=== PATIENT | female | born 1950 | race Caucasian/White ===

== ENCOUNTER → 2016-10-17 | Outpatient (CLI) | payer MEDICARE ==
--- NOTE | 2016-10-17 12:51 | WWHP ---
DATE OF SERVICE: 10/17/2016 CHIEF COMPLAINT: The patient is here for her routine gynecologic exam. HPI: This is a 66-year-old G3, P2-0-1-2 with an LMP of 1994. The patient is without gynecologic complaints and denies any postmenopausal bleeding. The patient had a mammogram last month. This was probably benign, but they did recommend a follow-up right-sided mammogram in 6 months. She did see Dr. Malagon for breast exam within the last 2 weeks. PAST MEDICAL HISTORY: Hypothyroidism and chronic back problems. Also history of osteoporosis, and history of frequent UTIs. MEDICATIONS: 1. Trimethoprim 100 mg 1 p.o. after each active intercourse. 2. Ronan thyroid 90 mcg daily. 3. Vitamin D 1000 units daily. 4. Premarin vaginal cream 1 to 2 grams intravaginally twice weekly, 5. Calcium supplement daily. 6. Magnesium supplement daily. 7. Probiotic daily. Allergies to SULFA, MACRODANTIN, PREVACID and METHYLPREDNISOLONE. Past surgical history is unchanged from the 2015 H&P. 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 SOCIAL HISTORY: She denies tobacco and drug use and infrequently drinks alcohol. She has been since about 1969 and is sexually active. 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 Family history is unchanged from the 2015 H&P. REVIEW OF SYSTEMS: Weight has been stable. She denies respiratory, cardiac, or GI problems. She denies maltreatment or falling. : She denies any significant problems with incontinence but occasionally has urinary urgency where she needs to get to the bathroom right away. PHYSICAL EXAM: Blood pressure 144/84. Height 5 feet 4 inches. Weight 140 pounds. Temperature 97.1, pulse 87. This a well-developed, well-nourished white female who is alert and oriented x3 in no acute distress. HEENT is within normal limits. NECK: Supple without mass or thyromegaly. CHEST AND LUNGS: Clear to auscultation. HEART: Regular rate and rhythm. Breast exam was refused by the patient since she just had this done by Dr. Malagon. ABDOMEN: Soft, nontender, without palpable masses. PELVIC EXAM: External genitalia reveals mild to moderate atrophy. There is a small BB sized benign-appearing inclusion cyst in the right labia. This is smooth and mobile and measures approximately 3 to 4 mm. The rest of the external genitalia also appears benign. Cervix and vagina reveal mild atrophy without lesions. There is no evidence of prolapse. Bimanual exam: The uterus is midposition, nongravid size and nontender. There are no palpable adnexal masses or tenderness. Rectovaginal exam is negative for mass or tenderness and is negative for occult blood. EXTREMITIES: Nontender. IMPRESSION: 1. A 66-year-old menopausal female with normal gynecologic exam. 2. Mild blood pressure elevation. 3. History of recurrent urinary tract infection, improved with postcoital trimethoprim use. PLAN: 1. Pap smear was performed. 2. Self breast examination was discussed. 3. Right-sided mammogram will be due in 6 months, and a slip was given to patient for this. 4. She will continue Premarin vaginal cream as directed and trimethoprim as directed. 5. She will return in one year.
--- NOTE | 2016-10-31 22:12 | WWPLE ---
October 31, 2016 RE: Anna Turpin Dear Dr. Madden: I had the pleasure seeing your patient, Anna Turpin in the office on 10/17/2016. As you know she is a 66-year-old menopausal female who presented to me for her routine gynecologic exam. The patient declined her breasts exams as she just was examined by Dr. Malagon for follow-up on her breast. She also had bilateral mammogram done about a month ago and did recommend a right-sided mammogram in 6 months. She does have a benign small inclusion cyst in the right labia measuring approximately 3 to 4 mm. The rest of her exam was unremarkable. Her Pap smear did come back showing ASCUS and high-risk HPV testing was negative. I have recommended that she have the Pap smear repeated in one year and she will be seeing me for this. I have reassured her about the small inclusion cysts. She will continue to follow up with Dr. Malagon regarding her breasts exams and mammograms. Thank you for allowing me to participate in the care of your patient. Please do not hesitate to call if you have any questions. Sincerely, Yaakov Andrade M.D. [facility]
== END | disposition home or self-care (01) ==

== ENCOUNTER → 2016-11-08 | Outpatient (CLI) | payer MEDICARE ==
[2016-11-08 10:18] LABS: CH 30.1; CHCM 32.5; HCT 43.4 % (34.0-46.0); HDW 2.26; HGB 13.7 gm/dL (11.4-16.0); MCH 29.3 pg (25.0-35.0); MCHC 31.5 g/dL (31.0-37.0); MCV 93.1 fL (80.0-100.0); Mean Platelet Volume 7.7; RBC 4.67 m/uL (3.80-5.40); RDW 11.7 % (11.5-15.5); WBC 6.2 k/uL (3.8-10.6)
[2016-11-08 13:13] LABS: ALT 39 U/L (9-52); AST 32 U/L (14-36); Alkaline Phosphatase 80 U/L (38-126); Anion Gap 10 mmol/L; Blood Urea Nitrogen 15 mg/dL (7-17); Calcium 9.9 mg/dL (8.4-10.2); Carbon Dioxide 27 mmol/L (22-30); Chloride 105 mmol/L (98-107); Glucose 89 mg/dL (74-99); Non-African American GFR(MDRD) >60 (>60 ml/min/1.73 sqM); Potassium 4.4 mmol/L (3.5-5.1); Sodium 142 mmol/L (137-145); Total Bilirubin 0.7 mg/dL (0.2-1.3); Total Protein 7.5 g/dL (6.3-8.2)
[2016-11-08 14:42] LABS: Hemoglobin A1C 5.3 % (4.2-6.1)
[2016-11-13 11:40] LABS: Mercury Whole Blood < 2 mcg/L (< 11)
== END | disposition home or self-care (01) ==
LOC: LABWHC1 08:39
PROVIDERS: ATTEND Internal Medicine
DX: G62.9 Polyneuropathy, unspecified (principal); E03.9 Hypothyroidism, unspecified; M79.673 Pain in unspecified foot
CPT/HCPCS: 36415; 80053; 82175; 82570; 83036; 83655; 83825; 84165; 84439; 84443; 84481; 85027

== ENCOUNTER → 2017-04-19 | Outpatient (CLI) | payer MEDICARE ==
--- NOTE | 2017-04-19 14:00 | MM ---
Reason for exam: follow-up at short interval from prior study. Last mammogram was performed 7 months ago. History: Patient is postmenopausal. Family history of breast cancer in aunt at age 65. Benign US breast aspiration single LT of the left breast, March 04, 2015. Benign cyst aspiration of the left breast. Benign cyst aspiration of the right breast. Benign excisional biopsy of the left breast. Took hormonal contraceptives for 10 years beginning at age 18. Took estrogen for 5 years beginning at age 53. Physical Findings: Nurse did not find any significant physical abnormalities on exam. MG 3D Diag Mammo W/Cad RT CC and MLO view(s) were taken of the right breast. Prior study comparison: September 28, 2016, bilateral MG 3d screening mammo w/cad. September 27, 2015, bilateral MG 3d diag mammo w/cad [facility]. The breast tissue is heterogeneously dense. This may lower the sensitivity of mammography. Benign calcifications. Stable axilla lymph node. No significant new findings when compared with previous films. ASSESSMENT: Benign, BI-RAD 2 RECOMMENDATION: Routine screening mammogram of both breasts in 6 months. Back on schedule.
== END | disposition home or self-care (01) ==
LOC: RADMAMWWP 12:54
PROVIDERS: ATTEND Surgery
DX: R92.8 Other abnormal and inconclusive findings on diagnostic imaging of breast (principal)
CPT/HCPCS: G0206; G0279

== ENCOUNTER → 2017-04-25 | Outpatient (CLI) | payer MEDICARE ==
--- NOTE | 2017-04-25 13:57 | P.PN ---
Progress Note - Text Chief complaint: concerns about mammographic changes over the past year. HPI this is a 67-year-old with a LMP of 1994. The patient has a history of a breast biopsy with clip placement on the left side. Her last screening mammogram on 09/28/2016 required a six-month follow-up on the right breast. She had this done on 04/19/17 which was benign. She states she has slight soreness in the left breast where a clip was placed years ago. She states the soreness seems to be greater after she uses her vaginal estrogen cream. She has been using Premarin vaginal cream because she is sexually active and this has been very helpful to minimize discomfort with sexual intercourse. She has tried not using the Premarin cream but sexual activity was very uncomfortable. She also uses a vaginal lubricant. She feels strongly that she would like to continue using the estrogen cream. She believes she sleeps better the night after inserting the Premarin cream. The patient has a known right labial inclusion cyst that has been followed conservatively. She states that is not painful. She is wondering what would need to be done to remove it. Physical exam: blood pressure 123/84, height 5'4", weight 136 pounds, temperature 98.4, pulse 88. This is a well-developed well-nourished white female who was alert and oriented times 3 in no acute distress. Pelvic exam: external genitalia reveals a right labial inclusion cyst which measures approximately 3 to 4 mm and is smooth and mobile this is nontender and non-inflamed. This is unchanged from her previous exam done in October 2016. Impression: 1. 67-year-old menopausal female using Premarin vaginal cream for vaginal atrophy. 2. History of abnormal mammogram with most recent follow-up mammogram on the right being read as benign on 04/21/2017. 3. Benign appearing right labial inclusion cyst measuring approximately 3 to 4 mm. This is stable from her previous exam. 4. Intermittent breast soreness at the area of her previously placed breast marker clip. She feels that it is more sore around the time of Premarin cream application. Plan: 1.We have had a long discussion regarding estrogen cream use. We have discussed theoretical risks with estrogen use. She understands there may be some small effects on breast tissue with the amount absorbed through the vagina. We have discussed various options including discontinuing estrogen cream, use of nonhormonal products such as a vaginal lubricant or vaginal moisturizer. She feels strongly that she would like to continue vaginal estrogen cream since it has been very helpful with her sexual activity. She would like to have a trial of Estrace vaginal cream instead of Premarin vaginal cream. A prescription for Estrace vaginal cream was given to the patient. She is to to use 1 to 2 g intravaginal twice-weekly. 2. We have had a long discussion regarding the labial inclusion cyst. I have offered the option of removal of the cyst. I do not feel simple drainage is likely to stop the cyst from coming back. After describing the procedure that would be needed to remove the cyst, she has decided to continue conservative management. 3. She will return in approximate 6 months for her annual examination. At that time we will repeat her screening mammogram. She will also call if she is having any questions or problems. Total time spent the patient 25 minutes.
== END | disposition home or self-care (01) ==
LOC: WWCWWP 11:56
PROVIDERS: ATTEND Obstetrics & Gynecology
DX: Z01.419 Encounter for gynecological examination (general) (routine) without abnormal findings (principal)

== ENCOUNTER 2017-05-16 01:53 | Emergency (ER) | payer MEDICARE ==
[2017-05-16 02:04] VITALS: TEMP 96.9
[2017-05-16] MEDS ORDERED: ASPIRIN 81 MG PO STA (02:08)
[2017-05-16] MEDS ORDERED: NITROGLYCERIN SL TABS 0.4 MG TAB SUBLINGUAL STA ×3 (02:08)
--- NOTE | 2017-05-16 02:11 | ED ---
General Adult HPI - General Chief complaint: Chest Pain Stated complaint: CHEST PAIN Time Seen by Provider: 05/16/17 02:04 Source: patient, RN notes reviewed Mode of arrival: ambulatory Limitations: no limitations - History of Present Illness Initial comments: Patient is a pleasant 67-year-old female presenting to the emergency Department with chest discomfort. Onset was around 11 PM. Discomfort feels like a sharp. There is some radiation towards the back. Patient questioned if symptoms were related to indigestion and did take Carafate and liquid antacid without improvement. No associated dyspnea, nausea, or diaphoresis. Discomfort was severe however has improved. Discomfort is currently rated 6/10. No leg pain or swelling. No cough or fever. - Related Data Home Medications Medication Instructions Recorded Confirmed Ascorbic Acid [Vitamin C] 500 mg PO DAILY 02/18/14 12/29/14 LORazepam [Ativan] 0.5 mg PO TID PRN 02/18/14 12/29/14 Magnesium 200 mg PO Q12HR 02/18/14 12/29/14 Metaxalone [Skelaxin] 800 mg PO TID PRN 02/18/14 12/29/14 Ubidecarenone [Coq-10] 100 mg PO DAILY 02/18/14 12/29/14 Diclofenac Epolamine [Flector] 1 patch TOPICAL BID PRN 07/08/14 12/29/14 Ergocalciferol [Vitamin D2 50,000 units PO WEEKLY 07/08/14 12/29/14 (DRISDOL)] Thyroid,Pork [[place] Thyroid] 90 mg PO DAILY 07/08/14 12/29/14 Diclofenac Sodium Gel [Voltaren 100 gm TOPICAL DAILY PRN 10/05/14 12/29/14 Gel] Lidocaine [Lidocaine] 1 patch TOPICAL DAILY PRN 10/05/14 12/29/14 Calcium Carbonate [Tums] 500 mg PO DAILY 11/11/14 12/29/14 Hydrocodone/Acetaminophen 1 - 2 each PO Q6HR PRN 11/11/14 12/29/14 [Hydrocodone/Acetaminophen 2.5-325] Allergies Allergy/AdvReac Type Severity Reaction Status Date / Time lansoprazole [From Prevacid] Allergy Rash/Hives Verified 05/16/17 02:04 nitrofurantoin Allergy Anaphylaxis Verified 05/16/17 02:04 macrocrystalline [From Macrodantin] Sulfa (Sulfonamide Allergy Rash/Hives Verified 05/16/17 02:04 Antibiotics) Review of Systems ROS Statement: Those systems with pertinent positive or pertinent negative responses have been documented in the HPI. ROS Other: All systems not noted in ROS Statement are negative. Constitutional: Denies: fever Eyes: Denies: eye pain ENT: Denies: ear pain Respiratory: Denies: cough, dyspnea Cardiovascular: Reports: chest pain Endocrine: Denies: fatigue Gastrointestinal: Denies: vomiting Genitourinary: Denies: dysuria Musculoskeletal: Denies: arthralgia Skin: Denies: rash Neurological: Denies: weakness Past Medical History Past Medical History: GERD/Reflux, Osteoarthritis (OA), Skin Disorder, Thyroid Disorder Additional Past Medical History / Comment(s): granuloma annulare, hypothyroid, fell recently & injured ribs on left side-very painful still History of Any Multi-Drug Resistant Organisms: None Reported Past Surgical History: Breast Surgery Additional Past Surgical History / Comment(s): D & C. left foot. Past Anesthesia/Blood Transfusion Reactions: Motion Sickness, Postoperative Nausea & Vomiting (PONV) Past Psychological History: Anxiety Smoking Status: Never smoker Past Alcohol Use History: Occasional Past Drug Use History: None Reported - Past Family History Father Additional Family Medical History / Comment(s): leukemia General Exam Limitations: no limitations General appearance: alert, in no apparent distress Head exam: Present: atraumatic Eye exam: Present: normal appearance, PERRL ENT exam: Present: normal oropharynx Neck exam: Present: normal inspection Respiratory exam: Present: normal lung sounds bilaterally. Absent: chest wall tenderness Cardiovascular Exam: Present: regular rate, normal rhythm Expanded Peripheral pulses: 2+: Radial (R), Radial (L), Posterior Tibialis (R), Posterior Tibialis (L) GI/Abdominal exam: Present: soft. Absent: tenderness Back exam: Present: normal inspection Neurological exam: Present: alert Psychiatric exam: Present: normal affect, normal mood Skin exam: Present: normal color Course Vital Signs 05/16/17 05/16/17 02:02 02:35 Temperature 96.9 F L Pulse Rate 91 78 Respiratory 20 20 Rate Blood Pressure 161/101 145/93 O2 Sat by Pulse 96 95 Oximetry EKG Findings - EKG Comments: EKG Findings:: Normal sinus rhythm 87. Her 162. QRS 86. QT 390. QTC 469. Normal axis. Normal QRS. Normal ST-T. Medical Decision Making - Medical Decision Making Patient reevaluated and resting comfortably in bed. Patient states no improvement with nitroglycerin. Patient states symptoms have resolved following GI cocktail. Patient is requesting discharge home. Case was discussed in detail with Dr. Madden who is familiar with this patient and recommends discharge. Patient is recommended to call in the morning for close follow-up. - Lab Data Result diagrams: 05/16/17 02:05 05/16/17 02:05 Lab Results 05/16/17 05/16/17 05/16/17 Range/Units 02:05 02:05 02:05 WBC 7.4 (3.8-10.6) k/uL RBC 4.44 (3.80-5.40) m/uL Hgb 13.4 (11.4-16.0) gm/dL Hct 40.8 (34.0-46.0) % MCV 91.9 (80.0-100.0) fL MCH 30.2 (25.0-35.0) pg MCHC 32.8 (31.0-37.0) g/dL RDW 13.0 (11.5-15.5) % Plt Count 306 (150-450) k/uL Neutrophils % 49 % Lymphocytes % 36 % Monocytes % 6 % Eosinophils % 3 % Basophils % 1 % Neutrophils # 3.7 (1.3-7.7) k/uL Lymphocytes # 2.7 (1.0-4.8) k/uL Monocytes # 0.5 (0-1.0) k/uL Eosinophils # 0.2 (0-0.7) k/uL Basophils # 0.1 (0-0.2) k/uL PT (9.0-12.0) sec INR (<1.2) APTT (22.0-30.0) sec D-Dimer (<0.60) mg/L FEU Sodium 140 (137-145) mmol/L Potassium 4.2 (3.5-5.1) mmol/L Chloride 105 (98-107) mmol/L Carbon Dioxide 24 (22-30) mmol/L Anion Gap 11 mmol/L BUN 17 (7-17) mg/dL Creatinine 0.80 (0.52-1.04) mg/dL Est GFR (MDRD) Af Amer >60 (>60 ml/min/1.73 sqM) Est GFR (MDRD) Non-Af >60 (>60 ml/min/1.73 sqM) Glucose 97 (74-99) mg/dL Calcium 10.2 (8.4-10.2) mg/dL Magnesium 2.2 (1.6-2.3) mg/dL Total Bilirubin 0.6 (0.2-1.3) mg/dL AST 37 H (14-36) U/L ALT 45 (9-52) U/L Alkaline Phosphatase 87 (38-126) U/L Total Creatine Kinase 135 (30-135) U/L CK-MB (CK-2) 1.5 (0.0-2.4) ng/mL CK-MB (CK-2) Rel Index 1.1 Troponin I <0.012 (0.000-0.034) ng/mL Total Protein 7.7 (6.3-8.2) g/dL Albumin 4.5 (3.5-5.0) g/dL 05/16/17 Range/Units 02:05 WBC (3.8-10.6) k/uL RBC (3.80-5.40) m/uL Hgb (11.4-16.0) gm/dL Hct (34.0-46.0) % MCV (80.0-100.0) fL MCH (25.0-35.0) pg MCHC (31.0-37.0) g/dL RDW (11.5-15.5) % Plt Count (150-450) k/uL Neutrophils % % Lymphocytes % % Monocytes % % Eosinophils % % Basophils % % Neutrophils # (1.3-7.7) k/uL Lymphocytes # (1.0-4.8) k/uL Monocytes # (0-1.0) k/uL Eosinophils # (0-0.7) k/uL Basophils # (0-0.2) k/uL PT 10.7 (9.0-12.0) sec INR 1.1 (<1.2) APTT 22.9 (22.0-30.0) sec D-Dimer 0.53 (<0.60) mg/L FEU Sodium (137-145) mmol/L Potassium (3.5-5.1) mmol/L Chloride (98-107) mmol/L Carbon Dioxide (22-30) mmol/L Anion Gap mmol/L BUN (7-17) mg/dL Creatinine (0.52-1.04) mg/dL Est GFR (MDRD) Af Amer (>60 ml/min/1.73 sqM) Est GFR (MDRD) Non-Af (>60 ml/min/1.73 sqM) Glucose (74-99) mg/dL Calcium (8.4-10.2) mg/dL Magnesium (1.6-2.3) mg/dL Total Bilirubin (0.2-1.3) mg/dL AST (14-36) U/L ALT (9-52) U/L Alkaline Phosphatase (38-126) U/L Total Creatine Kinase (30-135) U/L CK-MB (CK-2) (0.0-2.4) ng/mL CK-MB (CK-2) Rel Index Troponin I (0.000-0.034) ng/mL Total Protein (6.3-8.2) g/dL Albumin (3.5-5.0) g/dL - Radiology Data Radiology results: image reviewed (Chest x-ray shows no acute process) Disposition Clinical Impression: Chest pain Disposition: HOME SELF-CARE Condition: Stable Instructions: Chest Pain (ED) Additional Instructions: Please call Dr. Madden morning for close follow-up. Return for chest pain, difficulty breathing, change or worsening symptoms or other concerns. Referrals: Twan Madden MD [Primary Care Provider] - 1-2 days Time of Disposition: 04:07
[2017-05-16 02:23] LABS: ALT 45 U/L (9-52); AST 37 U/L (14-36); Alkaline Phosphatase 87 U/L (38-126); Anion Gap 11 mmol/L; Basophils # (A) 0.1 k/uL (0-0.2); Basophils % (A) 1 %; Blood Urea Nitrogen 17 mg/dL (7-17); CH 30.4; CHCM 33.3; Calcium 10.2 mg/dL (8.4-10.2); Carbon Dioxide 24 mmol/L (22-30); Chloride 105 mmol/L (98-107); Eosinophils # (A) 0.2 k/uL (0-0.7); Eosinophils % (A) 3 %; Glucose 97 mg/dL (74-99); HCT 40.8 % (34.0-46.0); HDW 2.23; HGB 13.4 gm/dL (11.4-16.0); Luc # (Auto) 0.33; Luc % (Auto) 4; Lymphocytes # (A) 2.7 k/uL (1.0-4.8); Lymphocytes % (A) 36 %; MCH 30.2 pg (25.0-35.0); MCHC 32.8 g/dL (31.0-37.0); MCV 91.9 fL (80.0-100.0); Magnesium 2.2 mg/dL (1.6-2.3); Monocytes # (A) 0.5 k/uL (0-1.0); Monocytes % (A) 6 %; Neutrophils # (A) 3.7 k/uL (1.3-7.7); Neutrophils % (A) 49 %; Non-African American GFR(MDRD) >60 (>60 ml/min/1.73 sqM); Potassium 4.2 mmol/L (3.5-5.1); RBC 4.44 m/uL (3.80-5.40); Sodium 140 mmol/L (137-145); Total Bilirubin 0.6 mg/dL (0.2-1.3); Total Protein 7.7 g/dL (6.3-8.2); WBC 7.4 k/uL (3.8-10.6); WBC (Perox) 7.39
[2017-05-16 02:26] LABS: Creatine Kinase 135 U/L (30-135)
[2017-05-16 02:27] LABS: INR 1.1 (<1.2)
[2017-05-16 02:28] LABS: Partial Thromboplastin Time 22.9 sec (22.0-30.0); Prothrombin Time 10.7 sec (9.0-12.0)
[2017-05-16 02:39] LABS: Creatine Kinase MB 1.5 ng/mL (0.0-2.4); Troponin I <0.012 ng/mL (0.000-0.034)
[2017-05-16] MEDS ORDERED: MAG HYDROX/AL HYDROX/SIMETH 30 ML, HYOSCYAMINE ELIXIR 10 ML, CIMETIDINE HCL 300 MG, LID... PO STA ×4 (03:24)
--- NOTE | 2017-05-16 03:52 | XR ---
EXAM: XR Chest, 2 Views CLINICAL HISTORY: Chest pain. TECHNIQUE: Frontal and lateral views of the chest. COMPARISON: CXR dated 02/02/2009. FINDINGS: Lungs: No focal consolidation. No evidence of pulmonary edema. Pleural space: No pleural effusion. No pneumothorax. Heart: Unremarkable. No cardiomegaly. Mediastinum: Stable mediastinal contours. Bones/joints: Stable mild scoliotic curvature of the thoracic spine. No evidence of acute fracture. IMPRESSION: 1. No radiographic evidence of acute cardiopulmonary process. 2. Stable scoliotic curvature of the thoracic spine.
[2017-05-16 04:25] VITALS: BP 124/69; PULSE 68; RESP 16
== END 2017-05-16 04:24 | disposition home or self-care (01) ==
LOC: EC 01:53
DX: R07.9 Chest pain, unspecified (principal); E03.9 Hypothyroidism, unspecified; Z88.2 Allergy status to sulfonamides; Z88.8 Allergy status to other drugs, medicaments and biological substances; Z88.1 Allergy status to other antibiotic agents; Z79.899 Other long term (current) drug therapy
CPT/HCPCS: 36415; 71020; 80053; 82550; 82553; 83735; 84484; 85025; 85379; 85610; 85730; 93005; 99285

== ENCOUNTER 2017-09-30 12:31 | Emergency (ER) | payer MEDICARE ==
[2017-09-30] MEDS ORDERED: SODIUM CHLORIDE 0.9% 1,000 ML IV ONE (13:51)
[2017-09-30] MEDS ORDERED: MECLIZINE 12.5 MG TAB PO STA (13:51)
[2017-09-30 14:09] LABS: ALT 40 U/L (9-52); AST 31 U/L (14-36); Albumin 4.4 g/dL (3.5-5.0); Alkaline Phosphatase 102 U/L (38-126); Anion Gap 12 mmol/L; Blood Urea Nitrogen 14 mg/dL (7-17); Calcium 10.1 mg/dL (8.4-10.2); Carbon Dioxide 26 mmol/L (22-30); Chloride 105 mmol/L (98-107); Glucose 99 mg/dL (74-99); Magnesium 2.2 mg/dL (1.6-2.3); Potassium 4.2 mmol/L (3.5-5.1); Sodium 143 mmol/L (137-145); Total Bilirubin 0.3 mg/dL (0.2-1.3); Total Protein 7.7 g/dL (6.3-8.2)
[2017-09-30 14:12] LABS: Basophils % (A) 1 %; Eosinophils # (A) 0.2 k/uL (0-0.7); Eosinophils % (A) 3 %; HCT 41.9 % (34.0-46.0); HGB 13.6 gm/dL (11.4-16.0); Lymphocytes # (A) 1.5 k/uL (1.0-4.8); Lymphocytes % (A) 20 %; MCH 29.5 pg (25.0-35.0); MCHC 32.4 g/dL (31.0-37.0); Mean Platelet Volume 8.2; Monocytes # (A) 0.3 k/uL (0-1.0); Monocytes % (A) 4 %; Neutrophils % (A) 69 %; Platelet Count 331 k/uL (150-450); RBC 4.61 m/uL (3.80-5.40); RDW 12.8 % (11.5-15.5); WBC 7.2 k/uL (3.8-10.6)
[2017-09-30 14:53] VITALS: PULSE 84
--- NOTE | 2017-09-30 14:55 | ED ---
Dizziness HPI - General Chief Complaint: Dizziness Stated Complaint: Vertigo Time Seen by Provider: 09/30/17 13:17 Source: patient Mode of arrival: ambulatory Limitations: no limitations - History of Present Illness Initial Comments: This is a 67-year-old female with a history of vestibular neuritis and vertigo who presents emergency department for dizziness and room spinning sensation. She states that it started last night and has persisted into today. She states that she feels like her equilibrium is off when she stands up and walks. She states that when she is laying down she feels better however she does get some spinning sensations when she moves her head a certain way or has position changes that lasts transiently. She states that she came in now because she wanted to make sure that it was not getting worse and that she could get treated for it. She denies any difficulty with speech or swallowing. No numbness, tingling, or weakness in her extremity. She denies any facial asymmetry. No headaches. She states that this feels consistent with her history of vertigo and vestibular neuritis. - Related Data Home Medications Medication Instructions Recorded Confirmed Ascorbic Acid [Vitamin C] 500 mg PO DAILY 02/18/14 09/30/17 Magnesium 200 mg PO Q12HR 02/18/14 09/30/17 Thyroid,Pork [[place] Thyroid] 90 mg PO DAILY 07/08/14 09/30/17 Calcium Carbonate/Vitamin D3 1 tab PO BID 09/30/17 09/30/17 [Calcium 600-Vit D3 400 Caplet] Cholecalciferol [Vitamin D3] 1,000 unit PO DAILY 09/30/17 09/30/17 Estrogens, Conjugated Cream 1 applicator VAGINAL DIRECTED 09/30/17 09/30/17 [Premarin Cream] L.acidoph,Paracasei, B.lactis 1 cap PO DAILY 09/30/17 09/30/17 [Probiotic] Ranitidine HCl [Zantac] 150 mg PO BID PRN 09/30/17 09/30/17 Sucralfate [Carafate] 1 gm PO BID PRN 09/30/17 09/30/17 Previous Rx's Medication Instructions Recorded LORazepam [Ativan] 0.5 mg PO BID PRN #15 tab 09/30/17 Meclizine [Antivert] 12.5 mg PO Q8HR PRN #60 tablet 09/30/17 Allergies Allergy/AdvReac Type Severity Reaction Status Date / Time lansoprazole [From Prevacid] Allergy Rash/Hives Verified 09/30/17 12:56 nitrofurantoin Allergy Anaphylaxis Verified 09/30/17 12:56 macrocrystalline [From Macrodantin] Sulfa (Sulfonamide Allergy Rash/Hives Verified 09/30/17 12:56 Antibiotics) Review of Systems ROS Statement: Those systems with pertinent positive or pertinent negative responses have been documented in the HPI. ROS Other: All systems not noted in ROS Statement are negative. Past Medical History Past Medical History: GERD/Reflux, Osteoarthritis (OA), Skin Disorder, Thyroid Disorder Additional Past Medical History / Comment(s): granuloma annulare, hypothyroid History of Any Multi-Drug Resistant Organisms: None Reported Past Surgical History: Breast Surgery Additional Past Surgical History / Comment(s): D & C. left foot. Past Anesthesia/Blood Transfusion Reactions: Motion Sickness, Postoperative Nausea & Vomiting (PONV) Past Psychological History: Anxiety Smoking Status: Never smoker Past Alcohol Use History: Occasional Past Drug Use History: None Reported - Past Family History Father Additional Family Medical History / Comment(s): leukemia General Exam - General Exam Comments Initial Comments: Constitutional: Awake alert Appears comfortable Head: Normocephalic atraumatic Eyes: no conjunctival injection No scleral icterus EOMI, mild right beating nystagmus when laying the patient flat that is fatigable Neck: No JVD Supple Heart: Regular rate rhythm normal S1-S2 no murmurs Lungs: Clear to auscultation bilaterally No wheezing No rales Abdomen: Soft nondistended nontender Extremities: Non edematous DP pulses intact Radial pulses intact Neuro: A&Ox3, CN 2 through 12 are grossly intact, 5 out of 5 strength in upper and lower [place] bilaterally, normal finger nose and heel to tran testing, mild stumbling with gait however is not falling to the same side No focal neurologic deficits Psych: Appropriate mood and affect] Limitations: no limitations Course Vital Signs 09/30/17 09/30/17 09/30/17 12:53 14:51 16:18 Temperature 98.2 F 98.5 F Pulse Rate 83 84 84 Respiratory 18 16 18 Rate Blood Pressure 142/77 147/75 154/78 O2 Sat by Pulse 97 96 97 Oximetry EKG Findings - EKG Comments: EKG Findings:: EKG showing normal sinus rhythm with a rate of 72. No abnormal ST 7 changes or T-wave inversion. QTC is 440. Other intervals normal. No ectopy. Medical Decision Making - Medical Decision Making Is a 67-year-old female who presented for vertigo. The patient felt improved after Antivert and Ativan. The patient had no focal neurologic deficits on examination. She was able to get up and walk without assistance. This time I feel the patient's symptoms are peripheral in nature. She'll be sent home with Ativan and Antivert to be used as needed for her vertigo. Told to follow-up closely with her primary doctor. If she has worsening symptoms she needs return emergency department promptly for further evaluation. All questions were answered. - Lab Data Result diagrams: 09/30/17 13:35 09/30/17 13:35 Lab Results 09/30/17 09/30/17 Range/Units 13:35 13:35 WBC 7.2 (3.8-10.6) k/uL RBC 4.61 (3.80-5.40) m/uL Hgb 13.6 (11.4-16.0) gm/dL Hct 41.9 (34.0-46.0) % MCV 91.0 (80.0-100.0) fL MCH 29.5 (25.0-35.0) pg MCHC 32.4 (31.0-37.0) g/dL RDW 12.8 (11.5-15.5) % Plt Count 331 (150-450) k/uL Neutrophils % 69 % Lymphocytes % 20 % Monocytes % 4 % Eosinophils % 3 % Basophils % 1 % Neutrophils # 5.0 (1.3-7.7) k/uL Lymphocytes # 1.5 (1.0-4.8) k/uL Monocytes # 0.3 (0-1.0) k/uL Eosinophils # 0.2 (0-0.7) k/uL Basophils # 0.0 (0-0.2) k/uL Sodium 143 (137-145) mmol/L Potassium 4.2 (3.5-5.1) mmol/L Chloride 105 (98-107) mmol/L Carbon Dioxide 26 (22-30) mmol/L Anion Gap 12 mmol/L BUN 14 (7-17) mg/dL Creatinine 0.90 (0.52-1.04) mg/dL Est GFR (MDRD) Af Amer >60 (>60 ml/min/1.73 sqM) Est GFR (MDRD) Non-Af >60 (>60 ml/min/1.73 sqM) Glucose 99 (74-99) mg/dL Calcium 10.1 (8.4-10.2) mg/dL Magnesium 2.2 (1.6-2.3) mg/dL Total Bilirubin 0.3 (0.2-1.3) mg/dL AST 31 (14-36) U/L ALT 40 (9-52) U/L Alkaline Phosphatase 102 (38-126) U/L Total Protein 7.7 (6.3-8.2) g/dL Albumin 4.4 (3.5-5.0) g/dL Disposition Clinical Impression: Vertigo Disposition: HOME SELF-CARE Condition: Stable Instructions: Dizziness (ED) Prescriptions: LORazepam [Ativan] 0.5 mg PO BID PRN #15 tab PRN Reason: Vertigo Meclizine [Antivert] 12.5 mg PO Q8HR PRN #60 tablet PRN Reason: Vertigo Referrals: Twan Madden MD [Primary Care Provider] - 1-2 days
[2017-09-30] MEDS ORDERED: LORazepam 2 MG/ML INJ IV STA (15:21)
[2017-09-30 16:18] VITALS: BP 154/78; RESP 18; TEMP 98.5
== END 2017-09-30 16:26 | disposition home or self-care (01) ==
LOC: EC 12:31
DX: R42 Dizziness and giddiness (principal); E03.9 Hypothyroidism, unspecified; Z88.8 Allergy status to other drugs, medicaments and biological substances; Z88.2 Allergy status to sulfonamides; Z88.1 Allergy status to other antibiotic agents; Z79.899 Other long term (current) drug therapy
CPT/HCPCS: 36415; 93005; 80053; 83735; 85025; 99284; 96374; 96361 ×2; J2060

== ENCOUNTER → 2017-10-30 | Outpatient (CLI) | payer MEDICARE ==
--- NOTE | 2017-11-01 09:18 | MM ---
Reason for exam: screening (asymptomatic). Last mammogram was performed 6 months ago. History: Patient is postmenopausal. Family history of breast cancer in aunt at age 65. Benign US breast aspiration single LT of the left breast, March 04, 2015. Benign cyst aspiration of the left breast. Benign cyst aspiration of the right breast. Benign excisional biopsy of the left breast. Took hormonal contraceptives for 10 years beginning at age 18. Took estrogen for 5 years beginning at age 53. Physical Findings: A clinical breast exam by your physician is recommended on an annual basis and results should be correlated with mammographic findings. MG 3D Screening Mammo W/Cad Bilateral CC and MLO view(s) were taken. Prior study comparison: April 19, 2017, right breast MG 3d diag mammo w/cad RT. September 28, 2016, bilateral MG 3d screening mammo w/cad. There are scattered fibroglandular densities. Previous mammotome biopsy in the left breast. No significant changes when compared with prior studies. ASSESSMENT: Negative, BI-RAD 1 RECOMMENDATION: Routine screening mammogram of both breasts in 1 year.
== END | disposition home or self-care (01) ==
LOC: RADMAMWWP 12:20
PROVIDERS: ATTEND Obstetrics & Gynecology
DX: Z12.31 Encounter for screening mammogram for malignant neoplasm of breast (principal)
CPT/HCPCS: 77063; 77067

== ENCOUNTER → 2017-11-27 | Outpatient (CLI) | payer MEDICARE ==
--- NOTE | 2017-11-27 12:56 | WWHP ---
[facility] - HISTORY AND PHYSICAL DATE OF DICTATION: 11/27/2017 CHIEF COMPLAINT: The patient is here for her routine gynecologic exam. HPI: This is a 67-year-old, G3, P2-0-1-2 with an LMP of 1994. The patient is without gynecologic complaints. She denies any postmenopausal bleeding. She has been using estrogen vaginal cream for vaginal atrophy. She is sexually active. She continues to use the trimethoprim after intercourse to prevent urinary tract infections. PAST MEDICAL HISTORY: Hypothyroidism, chronic back problems, history of osteoporosis and history of frequent UTIs. MEDICATIONS: 1. Trimethoprim 100 mg 1 p.o. after sexual intercourse. 2. [place] Thyroid 90 mcg daily/. 3. Premarin vaginal cream 1 to 2 g intravaginally twice weekly. 4. Calcium supplement daily. 5. Magnesium supplement daily. 6. Probiotic daily. 7. Vicodin p.r.n. ALLERGIES: To SULFA, MACRODANTIN, PREVACID, and METHYLPREDNISOLONE. PAST SURGICAL HISTORY: Left foot surgery 2016, benign breast cyst removed in her 30s, D and C in her 30s, colonoscopy 2013. PAST CLINICAL EDUCATION CONSULTANT HISTORY: She has no history of STDs and has been menopausal since 1994. SOCIAL HISTORY: She denies tobacco and drug use and infrequently drinks alcohol. She has been since 1969 and is sexually active. 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 FAMILY HISTORY: Unchanged from the 2015 H and P. REVIEW OF SYSTEMS: Weight has been stable. She denies respiratory, cardiac or GI problems. She denies maltreatment or falling. She denies any significant problems with urinary leakage. PHYSICAL EXAM: Blood pressure 124/85, height 5 feet 4 inches, weight 139 pounds, BMI 24. Temperature 98.3, pulse 92. This is a well-developed, well-nourished, white female, who is alert and oriented x3, in no acute distress. HEENT is within normal limits. NECK: Supple without mass or thyromegaly. CHEST AND LUNGS: Clear to auscultation. HEART: Regular rate and rhythm. Breasts are without mass or discharge. Axillary exam is negative for adenopathy. Back negative for CVA tenderness. ABDOMEN: Soft, nontender, without palpable masses pelvic exam external genitalia reveals bcmc-on-dhpafdob atrophy without lesions. Cervix and vagina reveals mild-to- moderate atrophy without lesions. There is no evidence of prolapse. The uterus is midposition, nongravid size and nontender. There are no palpable adnexal masses or tenderness. Rectovaginal exam is negative for mass or tenderness and is negative for occult blood. EXTREMITIES: Nontender. IMPRESSION: 1. A 67-year-old menopausal female with normal gynecologic exam. 2. History of recurrent urinary tract infection and improved with post coital trimethoprim. 3. History of previous ASCUS Pap smear with negative high-risk HPV on 10/17/2016. PLAN: 1. Pap smear was performed. This was done because of her previous abnormal Pap smear last year. 2. Self breast examination was discussed. 3. Mammogram will be due in 11 months. She continues to see Dr. Malagon for breast exams. 4. Osteoporosis management was discussed. I have again offered treatment for osteoporosis, which she actually again has declined. 5. Continue trimethoprim after intercourse as directed. A prescription for this and Premarin vaginal cream was given to the patient. 6. She will return in 1 year. MMODL / IJN: [id number] /
== END ==
LOC: WWCWWP 11:12
PROVIDERS: ATTEND Obstetrics & Gynecology
DX: Z53.9 Procedure and treatment not carried out, unspecified reason (principal)

== ENCOUNTER → 2018-01-02 | Outpatient (CLI) | payer MEDICARE ==
[2018-01-02 12:06] VITALS: BP 142/83; PULSE 93; RESP 16; TEMP 96.6; BMI 23.1
--- NOTE | 2018-01-02 13:26 | P.PN ---
Progress Note - Text Progress Note Date: 01/02/18 Chief complaint: urinary urgency times 2 weeks HPI: this is a 67-year-old with an LMP of 1994. The patient began having urinary symptoms around 12/21/2017. She did have a history of frequent urinary tract infections which improved after she started taking trimethoprim 1 after sexual intercourse years ago. She started having significant urinary urgency and took extra trimethoprim but this did not help. She saw Dr. Madden, her primary care physician, who treated her with Cipro. After a few days her symptoms did not improve so she was started on amoxicillin. She has completed her course of amoxicillin today but continues to have urinary symptoms. She feels a lot of pelvic pressure and urinary urgency. She voids frequently and is voiding smaller amounts. Urinalysis and urine culture from 12/28/2017 were negative. She was taking antibiotics at the time of the urine testing. She tends to feel better when she has been in the laying position for several hours. The symptoms seem to be worse after sitting and standing. She denies any vaginal discharge or bulging from the vagina. She was having issues with constipation when her urinary symptoms started but constipation seems to have resolved. She does have a history of right pelvic pains that are mild and feels achy at times. She states she has had this for many years and her current problem seems to be different from the right pelvic pain. ROS: : As in the HPI GI: recent constipation after her thyroid medication was changed. Her medication was changed back to armor thyroid and the constipation seems to have resolved. She denies fever or vaginal discharge. Physical exam: blood pressure 142/83, height 5'4", weight 135 pounds, temperature 96.6, pulse 93. This is a well-developed well-nourished white female who is alert and ready times 3 in no acute distress but does complain of urinary urgency. Abdomen: soft nontender without palpable masses. The abdomen is nondistended. Pelvic exam: external genitalia reveals mild atrophy without lesions. Cervix and vagina appear normal. There is no unusual vaginal discharge. There is no evidence of prolapse at rest or with Valsalva. Bimanual exam: there is moderate tenderness in the area of the bladder. There is mild bilateral adnexal tenderness which she describes as feeling like she has to urinate. There are no palpable adnexal masses. Impression: 1. 67-year-old menopausal female with a two-week history of urinary urgency despite 2 courses of antibiotics. Differential diagnosis will include cystitis caused by a bacteria resistant to Cipro and amoxicillin and possible interests to show cystitis. I believe a non-urologic etiology is less likely. The previous urine culture may have been negative because she was taking antibiotics at the time. 2. No evidence of significant pelvic prolapse. 3. Mild intermittent right pelvic pains which is chronic and I doubt this is directly related to her urinary symptoms. Plan: 1. Pyridium 200 mg TID PRN for up to 3 days. 2. Since she just completed her amoxicillin course, she will wait 2 to 3 days to give a urine specimen. In order slip for a urinalysis and urine culture was given to the patient. This will be a clean catch specimen. 3. Vaginal probe pelvic ultrasound will be scheduled. 4. If her urinary symptoms are not improving I have recommended she follow up with Dr. Richmond, the urologist she has seen in the past. Total time spent with patient 30 minutes.
== END | disposition home or self-care (01) ==
LOC: WWCWWP 11:49
PROVIDERS: ATTEND Obstetrics & Gynecology
DX: Z53.9 Procedure and treatment not carried out, unspecified reason (principal)

== ENCOUNTER → 2018-01-05 | Outpatient (CLI) | payer MEDICARE ==
[2018-01-05 11:12] LABS: Appearance,Urine Clear (Clear); Bilirubin,Urine Negative (Negative); Blood,Urine Negative (Negative); Color,Urine Yellow; Glucose,Urine (UA) Negative (Negative); Ketones,Urine Negative (Negative); Leukocyte Esterase,Urine Negative (Negative); Nitrite,Urine Negative (Negative); Protein,Urine Negative (Negative); Specific Gravity,Urine 1.015 (1.001-1.035); Urobilinogen,Urine <2.0 mg/dL (<2.0)
== END | disposition home or self-care (01) ==
LOC: LABWHC1 10:51
PROVIDERS: ATTEND Obstetrics & Gynecology
DX: R39.15 Urgency of urination (principal)
CPT/HCPCS: 81003; 87086

== ENCOUNTER 2018-05-08 22:22 | Observation (INO) | payer MEDICARE ==
[2018-05-08] MEDS ORDERED: METOCLOPRAMIDE 5 MG/ML 2 ML VIAL IVP STA (22:49)
[2018-05-08] MEDS ORDERED: SODIUM CHLORIDE 0.9% 1,000 ML IV STA ×2 (22:49)
[2018-05-08 23:16] LABS: Basophils % (A) 0 %; Eosinophils # (A) 0.1 k/uL (0-0.7); Eosinophils % (A) 1 %; HCT 39.9 % (34.0-46.0); HGB 13.3 gm/dL (11.4-16.0); Lymphocytes # (A) 0.7 k/uL (1.0-4.8); Lymphocytes % (A) 6 %; MCHC 33.4 g/dL (31.0-37.0); MCV 89.7 fL (80.0-100.0); Mean Platelet Volume 7.3; Monocytes # (A) 0.1 k/uL (0-1.0); Monocytes % (A) 1 %; Neutrophils # (A) 9.8 k/uL (1.3-7.7); Neutrophils % (A) 92 %; Platelet Count 271 k/uL (150-450); RBC 4.45 m/uL (3.80-5.40); RDW 12.4 % (11.5-15.5); WBC 10.7 k/uL (3.8-10.6)
[2018-05-08 23:28] LABS: ALT 36 U/L (9-52); AST 34 U/L (14-36); Albumin 4.3 g/dL (3.5-5.0); Alkaline Phosphatase 96 U/L (38-126); Anion Gap 7 mmol/L; Blood Urea Nitrogen 10 mg/dL (7-17); Calcium 9.3 mg/dL (8.4-10.2); Carbon Dioxide 23 mmol/L (22-30); Chloride 109 mmol/L (98-107); Glucose 133 mg/dL (74-99); Potassium 4.1 mmol/L (3.5-5.1); Sodium 139 mmol/L (137-145); Total Bilirubin 0.4 mg/dL (0.2-1.3); Total Protein 7.2 g/dL (6.3-8.2)
--- NOTE | 2018-05-08 23:34 | XR ---
EXAMINATION TYPE: XR chest 2V DATE OF EXAM: 05/08/2018 COMPARISON: 05/16/2017 HISTORY: Weakness and pain TECHNIQUE: Frontal and lateral views of the chest are obtained. FINDINGS: Heart and mediastinum are normal. Lungs are clear. Diaphragm is normal. There is mild thor acic dextroscoliosis. There is slight blunting of left costophrenic angle. IMPRESSION: Mild pleural scarring at the lateral left lung base. No acute lung disease. Normal heart . No significant change.
[2018-05-09 00:03] LABS: Appearance,Urine Clear (Clear); Bilirubin,Urine Negative (Negative); Blood,Urine Negative (Negative); Color,Urine Light Yellow; Glucose,Urine (UA) Negative (Negative); Ketones,Urine Negative (Negative); Leukocyte Esterase,Urine Negative (Negative); Nitrite,Urine Negative (Negative); PH, Urine 6.5 (5.0-8.0); Protein,Urine Negative (Negative); Specific Gravity,Urine 1.008 (1.001-1.035); Urobilinogen,Urine <2.0 mg/dL (<2.0)
--- NOTE | 2018-05-09 00:07 | ED ---
General Adult HPI - General Chief complaint: Nausea/Vomiting/Diarrhea Stated complaint: post op, nausea Time Seen by Provider: 05/08/18 22:31 Source: patient, EMS Mode of arrival: EMS Limitations: no limitations - History of Present Illness Initial comments: 68 years O female had a left foot surgery done today at [facility] that was done by Dr. Marlene Euceda. She got quite nauseous she had a few episodes of violent shakes she said she is quite sensitive to medications denies any fever but she has chills and shakes. Denies any headaches no neck stiffness no cough no chest pain or shortness of breath no abdominal pain she does have pain pump attached medication is Naropin infusion. She is complaining about term intractable nausea no headaches no neck stiffness no chest pain no signs of TIA or CVA - Related Data Home Medications Medication Instructions Recorded Confirmed Thyroid,Pork [[place] Thyroid] 90 mg PO DAILY 07/08/14 05/08/18 Estrogens, Conjugated Cream 1 applicator VAGINAL DIRECTED 09/30/17 05/08/18 [Premarin Cream] L.acidoph,Paracasei, B.lactis 1 cap PO DAILY 09/30/17 05/08/18 [Probiotic] Ranitidine HCl [Zantac] 150 mg PO BID PRN 09/30/17 05/08/18 Sucralfate [Carafate] 1 gm PO BID PRN 09/30/17 05/08/18 Ascorbic Acid [Vitamin C] 500 mg PO BID 05/08/18 05/08/18 Calcium Carbonate [Calcium] 600 mg PO DAILY 05/08/18 05/08/18 Cholecalciferol (Vitamin D3) 4,000 unit PO DAILY 05/08/18 05/08/18 [Vitamin D3] LORazepam [Ativan] 0.5 mg PO BID PRN 05/08/18 05/08/18 Magnesium Gluconate [Magonate] 500 mg PO DAILY 05/08/18 05/08/18 Tumeric 500mg 1 tab PO BID 05/08/18 05/08/18 Allergies Allergy/AdvReac Type Severity Reaction Status Date / Time lansoprazole [From Prevacid] Allergy Rash/Hives Verified 05/08/18 23:18 nitrofurantoin Allergy Anaphylaxis Verified 05/08/18 23:18 macrocrystalline [From Macrodantin] Sulfa (Sulfonamide Allergy Rash/Hives Verified 05/08/18 23:18 Antibiotics) codeine AdvReac Unknown Verified 05/08/18 23:18 Review of Systems ROS Statement: Those systems with pertinent positive or pertinent negative responses have been documented in the HPI. ROS Other: All systems not noted in ROS Statement are negative. Past Medical History Past Medical History: GERD/Reflux, Osteoarthritis (OA), Skin Disorder, Thyroid Disorder Additional Past Medical History / Comment(s): granuloma annulare, hypothyroid History of Any Multi-Drug Resistant Organisms: None Reported Past Surgical History: Breast Surgery Additional Past Surgical History / Comment(s): D & C. left foot. bilateral cateracts Past Anesthesia/Blood Transfusion Reactions: Motion Sickness, Postoperative Nausea & Vomiting (PONV) Past Psychological History: Anxiety Smoking Status: Never smoker - Past Family History Father Additional Family Medical History / Comment(s): leukemia General Exam - General Exam Comments Initial Comments: General: The patient is awake and alert, in moderate distress Skin: Skin is warm and dry and no rashes or lesions are noted. Eye: Pupils are equal, round and reactive to light, extra-ocular movements are intact; there is normal conjunctiva bilaterally. Ears, nose, mouth and throat: There are moist mucous membranes and no oral lesions. Neck: The neck is supple, there is no tenderness or JVD. Cardiovascular: There is a regular rate and rhythm. No murmur, rub or gallop is appreciated. Respiratory: To auscultation bilateral, no wheezing no rhonchi no distress respiratory conley noticed Gastrointestinal: Soft, non-distended, non-tender abdomen without masses or organomegaly noted. There is no rebound or guarding present. Bowel sounds are unremarkable. Back: There is no tenderness to palpation in the midline. There is no obvious deformity. Musculoskeletal: Normal ROM, no tenderness, There is no pedal edema. There is no calf tenderness or swelling. No cords were appreciated. Neurological: CN II-XII intact, Cranial nerves III through XII are intact. There are no obvious motor or sensory deficits. Coordination appears grossly intact. Speech is normal. Psychiatric: Cooperative, anxious and irritable. Limitations: no limitations Course Vital Signs 05/08/18 05/09/18 22:27 00:00 Temperature 97.9 F Pulse Rate 114 H 82 Respiratory 20 19 Rate Blood Pressure 144/79 132/76 O2 Sat by Pulse 95 93 L Oximetry Labs and imaging are reviewed white count is 10.7, his metabolic panel is normal chest x-rays unremarkable urinalysis is unremarkable patient feels that she cannot go home considering the nausea and shakes is still there considering that I spoke with the Dr. Chano Madden agreed with the observation admission Medical Decision Making - Lab Data Result diagrams: 05/08/18 23:07 05/08/18 23:07 Lab Results 05/08/18 05/08/18 05/08/18 Range/Units 23:07 23:07 23:49 WBC 10.7 H (3.8-10.6) k/uL RBC 4.45 (3.80-5.40) m/uL Hgb 13.3 (11.4-16.0) gm/dL Hct 39.9 (34.0-46.0) % MCV 89.7 (80.0-100.0) fL MCH 30.0 (25.0-35.0) pg MCHC 33.4 (31.0-37.0) g/dL RDW 12.4 (11.5-15.5) % Plt Count 271 (150-450) k/uL Neutrophils % 92 % Lymphocytes % 6 % Monocytes % 1 % Eosinophils % 1 % Basophils % 0 % Neutrophils # 9.8 H (1.3-7.7) k/uL Lymphocytes # 0.7 L (1.0-4.8) k/uL Monocytes # 0.1 (0-1.0) k/uL Eosinophils # 0.1 (0-0.7) k/uL Basophils # 0.0 (0-0.2) k/uL Sodium 139 (137-145) mmol/L Potassium 4.1 (3.5-5.1) mmol/L Chloride 109 H (98-107) mmol/L Carbon Dioxide 23 (22-30) mmol/L Anion Gap 7 mmol/L BUN 10 (7-17) mg/dL Creatinine 0.60 (0.52-1.04) mg/dL Est GFR (CKD-EPI)AfAm >90 (>60 ml/min/1.73 sqM) Est GFR (CKD-EPI)NonAf >90 (>60 ml/min/1.73 sqM) Glucose 133 H (74-99) mg/dL Calcium 9.3 (8.4-10.2) mg/dL Total Bilirubin 0.4 (0.2-1.3) mg/dL AST 34 (14-36) U/L ALT 36 (9-52) U/L Alkaline Phosphatase 96 (38-126) U/L Total Protein 7.2 (6.3-8.2) g/dL Albumin 4.3 (3.5-5.0) g/dL Urine Color Light Yellow Urine Appearance Clear (Clear) Urine pH 6.5 (5.0-8.0) Ur Specific [place] 1.008 (1.001-1.035) Urine Protein Negative (Negative) Urine Glucose (UA) Negative (Negative) Urine Ketones Negative (Negative) Urine Blood Negative (Negative) Urine Nitrite Negative (Negative) Urine Bilirubin Negative (Negative) Urine Urobilinogen <2.0 (<2.0) mg/dL Ur Leukocyte Esterase Negative (Negative) Disposition Clinical Impression: Shaking chills Disposition: ADMITTED IP TO THIS [facility] Condition: Good Referrals: Twan Madden MD [Primary Care Provider] - 1-2 days
[2018-05-09] MEDS ORDERED: ACETAMINOPHEN TAB 325 MG TAB PO PRN (00:43)
[2018-05-09] MEDS ORDERED: NALOXONE 0.4 MG/ML 1 ML VIAL IV PRN (00:43)
[2018-05-09] MEDS ORDERED: LORazepam 2 MG/ML INJ IV PRN (00:43)
[2018-05-09] MEDS ORDERED: IBUPROFEN 400 MG TAB PO PRN (00:43)
[2018-05-09] MEDS ORDERED: FAMOTIDINE 20 MG TAB PO PRN (00:50)
[2018-05-09] MEDS ORDERED: SUCRALFATE 1 GM TAB PO PRN (00:50)
[2018-05-09] MEDS ORDERED: ESTROGENS, CONJUGATED 0.625 MG/GM VAGINAL CREAM 42.5 GM TUBE VAGINAL SCH (01:00)
[2018-05-09] MEDS: SODIUM CHLORIDE 0.9% 1,000 ML IV SCH ×2 (01:55→15:26)
[2018-05-09 02:06] VITALS: RESP 18
[2018-05-09 02:09] VITALS: BMI 25.1
[2018-05-09] MEDS: ONDANSETRON 4 MG/2 ML VIAL IVP PRN ×2 (02:23→12:38)
[2018-05-09 06:04] VITALS: BP 106/56; PULSE 87; TEMP 97.4
[2018-05-09] MEDS: MAGNESIUM OXIDE 400 MG TAB PO SCH ×2 (08:00→08:06)
[2018-05-09] MEDS: CALCIUM CARBONATE 500 MG CHEWABLE PO SCH ×2 (08:00→08:06)
[2018-05-09] MEDS: THYROID, PORK 30 MG TAB PO SCH ×2 (08:00→08:07)
[2018-05-09] MEDS: ASCORBIC ACID 500 MG TAB PO SCH ×2 (08:00→08:06)
[2018-05-09] MEDS: CHOLECALCIFEROL 1,000 UNIT TAB PO SCH ×2 (08:00→08:06)
[2018-05-09] MEDS ORDERED: HEPARIN SODIUM,PORCINE 5,000 UNIT/ML 1 ML VIAL SQ SCH (08:30)
[2018-05-09] MEDS ORDERED: NON-FORMULARY DRUG (L.Acidoph,Paracasei, B.Lactis [Probiotic] 1 CAP) PO SCH (09:00)
[2018-05-09] MEDS ORDERED: TUMERIC 500 MG PO SCH (09:00)
[2018-05-09] MEDS ORDERED: LORazepam 1 MG TAB PO PRN (09:18)
[2018-05-09] MEDS ORDERED: LORazepam 0.5 MG TAB PO PRN (10:26)
--- NOTE | 2018-05-09 23:50 | HP ---
HISTORY AND PHYSICAL CHIEF COMPLAINT: Nausea, vomiting. HISTORY OF PRESENT ILLNESS: This 68-year-old female is admitted to the hospital after being evaluated in the emergency room. The patient had her left foot first MTP fusion surgery done at an outpatient surgical site in [place]. It was [facility]. The patient had surgery at 1:00 and then she was discharged from the facility at 4:30. The patient said she had significant shaking while in the postoperative recovery room; however, that did subside. Prior to discharge from the rehab postoperatively, she was given a shot, and she does not know what it was. She was told that the shot would make her comfortable on her way to [place]. However, the patient after reaching home started having some nausea and later vomiting. She had had a scopolamine patch placed earlier preoperatively. The patient's took some of her daughter's Zofran, without much help. Due to continued vomiting and shaking, EMS went to the site. They also gave her some Zofran on the way, without much help. In the emergency room she was given some more antiemetics, including Reglan, which subsequently helped. The patient due to her shakiness was recommended to be given some Ativan, as she did not have any true chills and no fever. The patient has an infusion pump in the left thigh area. She has no pain in the left foot. She has numbness in the foot. The patient was admitted in the night. Patient was seen this morning. At the time of examination, she is alert, in no distress. She denies any further shakiness and no further nausea or vomiting. PAST MEDICAL HISTORY: Past medical history is primarily negative for any major illnesses except for hypothyroidism. The patient does have a history of chronic thoracic spine arthritic symptoms and pain associated with that. She does receive frequent treatments through the pain clinic, mostly in the form of local injections. She is not on any narcotics. She is fairly sensitive to medications. Generally, if she needs anything for severe pain, she uses half a [facility] 5/325. The patient otherwise has no major medical illnesses. No history of any high blood pressure, diabetes, lung, liver, kidney disease. No history of any ulcers, TB, hepatitis, rheumatic fever. No history of any myocardial infarction or CVA. She does have a history of gastroesophageal reflux. PAST SURGICAL HISTORY: Past surgical history is significant for previous left foot surgery and repeat surgery on 05/08/2018. PERSONAL HISTORY: Nonsmoker. Alcohol occasional, social. ALLERGIES: 1. PREVACID, which causes a rash and hives. 2. NITROFURANTOIN causes anaphylaxis. 3. SULFA DRUGS cause a rash. 4. CODEINE causes basically not feeling well. MEDICATIONS AT HOME: 1. Vitamin D3. 2. Calcium tablets. 3. Vitamin C. 4. Turmeric. 5. [place] Thyroid 90 mg daily. 6. Magnesium 500 mg daily. 7. Carafate 1 gram p.o. b.i.d. p.r.n. 8. Zantac 150 b.i.d. p.r.n. 9. Ativan 0.5 p.o. b.i.d. p.r.n. 10.Probiotics. 11.Vaginal estrogen cream. 12.Motrin. She was discharged from the facility with a prescription for Percocet, and the patient does take take aspirin 325 twice a day for DVT prophylaxis. SOCIAL HISTORY: Patient and lives with her spouse. FAMILY MEDICAL HISTORY: Patient's brother has history of aortic stenosis. REVIEW OF SYSTEMS: NEURO: Denies any headaches or dizziness. Presenting symptoms of nausea, vomiting. Denies any vertigo, diplopia. RESPIRATORY: No shortness of breath, cough, hemoptysis. GI: Present complaint of nausea, vomiting. No abdominal pain, diarrhea, constipation. Patient has not had a bowel movement today. : No symptoms of dysuria, hematuria, urgency, frequency. CARDIAC: No angina or shortness of breath. SKIN: No rashes. MUSCULOSKELETAL: Status post left first MTP fusion. No pain at the site. PHYSICAL EXAMINATION: Pleasant female, at present in no distress. VITAL SIGNS AT THE TIME OF ER PRESENTATION: Temperature 97.9, pulse 114, respirations 20, blood pressure 144/79, pulse ox of 95% on room air. This morning patient's temperature was 97.4, pulse 87, respirations 18, blood pressure 106/56, pulse ox 92% on room air. HEENT: Normocephalic. NECK: No JVD. Oral cavity is dry. CHEST: Clear to auscultation and percussion. CARDIAC: Normal S1 and S2 with no gallops, murmurs, rubs. ABDOMEN: Soft. Bowel sounds present. Extremities reveal no edema. Good pulses, right lower leg. Left leg: patient has an ankle immobilizer. Toes have no sensations, but they were warm to touch. Neurologically awake, alert, oriented x3 with well-coordinated movements, both upper extremities. LABORATORY ASSESSMENT: CBC showed a white count 10.7. Electrolytes are normal. BUN and creatinine normal. Glucose random 133. unremarkable. ASSESSMENT: 1. Nausea and vomiting postoperatively. 2. Status post left first MTP fusion. 3. Hypothyroidism, on replacement therapy. PLAN: Continue present medical regimen. Patient has been admitted for observation to make sure that her nausea and vomiting do not continue and that she does not develop a fever. Patient's condition was discussed with the patient. Prognosis guarded. MMODL / IJN: [id number] /
== END 2018-05-09 15:52 | disposition home or self-care (01) ==
LOC: EC 22:22 → 4MS4W 05-09 00:44
PROVIDERS: ADMIT Internal Medicine; ATTEND Internal Medicine
DX: R11.2 Nausea with vomiting, unspecified (principal); Z98.1 Arthrodesis status; E03.9 Hypothyroidism, unspecified; K21.9 Gastro-esophageal reflux disease without esophagitis; M19.90 Unspecified osteoarthritis, unspecified site; L98.9 Disorder of the skin and subcutaneous tissue, unspecified; G89.29 Other chronic pain; M54.6 Pain in thoracic spine; F41.9 Anxiety disorder, unspecified; R20.0 Anesthesia of skin; Z79.899 Other long term (current) drug therapy; Z97.8 Presence of other specified devices; Z79.890 Hormone replacement therapy; Z88.1 Allergy status to other antibiotic agents; Z88.5 Allergy status to narcotic agent; Z88.2 Allergy status to sulfonamides; Z88.8 Allergy status to other drugs, medicaments and biological substances; Z98.42 Cataract extraction status, left eye; Z98.41 Cataract extraction status, right eye; Z82.49 Family history of ischemic heart disease and other diseases of the circulatory system; Z80.6 Family history of leukemia
CPT/HCPCS: 99285 ×2; 96374 ×2; 96361 ×5; 96375 ×3; 96376; 96372; 36415 ×2; 80053; 85025; 81003; 87040; 87086; 71046; G0378; J2060; J1644; J2765; J2405

== ENCOUNTER → 2018-09-27 | Outpatient (CLI) | payer MEDICARE ==
--- NOTE | 2018-09-30 19:00 | MR ---
EXAMINATION TYPE: MR shoulder LT wo con DATE OF EXAM: 09/27/2018 COMPARISON: Outside radiographs 09/10/2018 and outside MRI 11/12/2015 HISTORY: 68-year-old female LEFT SHOULDER PAIN TECHNIQUE: Multiplanar, multisequence imaging of the left shoulder is performed without contrast. FINDINGS: Axial images suggest a longitudinal split tear of the long head biceps tendon especially the extracap sular portion. Intracapsular portion appears intact. The subscapularis tendon is intact. Mild degenerative joint space narrowing with marginal spurring and capsular hypertrophy at the acromi oclavicular joint. Trace effusion within the subacromial/subdeltoid bursa. There is bursal sided fraying of the mid supraspinatus tendon and areas of interstitial tearing throu ghout the anterior to mid supraspinatus tendon. Heterogeneous signal of both supraspinatus and infras pinatus tendons is noted. No atrophy of the rotator cuff musculature. Mild diffuse thinning of glenohumeral joint articular cartilage is noted. There is new abnormal signa l extending into the superior labrum from the level of the biceps anchor to the superior aspect of th e posterior labrum. No para labral cyst. No Hill-Sachs deformity or os acromiale. No suspicious bone marrow replacement. IMPRESSION: 1. There appears to be a longitudinal split tear of the extracapsular portion of the long head biceps tendon on axial images. 2. Supraspinatus and infraspinatus tendinosis with new bursal sided fraying of the mid supinator tend on and areas of intrasubstance change of the anterior to mid of supraspinatus tendon. No high-grade p artial or full-thickness rotator cuff tear. 3. Mild degenerative thinning of the glenohumeral joint articular cartilage. There is a new SLAP tear likely on a degenerative basis. 4. Mild AC joint OA. Trace effusion in the subacromial/subdeltoid bursa.
== END | disposition home or self-care (01) ==
LOC: RADMRIMAIN 12:57
PROVIDERS: ATTEND Orthopaedic Surgery
DX: M19.012 Primary osteoarthritis, left shoulder (principal); M75.82 Other shoulder lesions, left shoulder

== ENCOUNTER → 2018-11-18 | Outpatient (CLI) | payer MEDICARE ==
--- NOTE | 2018-11-19 12:55 | MM ---
Reason for exam: screening (asymptomatic). Last mammogram was performed 1 year and 1 month ago. History: Patient is postmenopausal. Family history of breast cancer in aunt at age 65. Benign US breast aspiration single LT of the left breast, March 04, 2015. Benign cyst aspiration of the left breast. Benign cyst aspiration of the right breast. Benign excisional biopsy of the left breast. Took hormonal contraceptives for 10 years beginning at age 18. Took estrogen for 5 years beginning at age 53. Physical Findings: A clinical breast exam by your physician is recommended on an annual basis and results should be correlated with mammographic findings. MG 3D Screening Mammo W/Cad Bilateral CC and MLO view(s) were taken. Prior study comparison: October 30, 2017, bilateral MG 3d screening mammo w/cad. April 19, 2017, right breast MG 3d diag mammo w/cad RT. There are scattered fibroglandular densities. Previous mammotome biopsy in the left breast. There is chronic nodularity in the right breast. No significant changes when compared with prior studies. ASSESSMENT: Negative, BI-RAD 1 RECOMMENDATION: Routine screening mammogram of both breasts in 1 year.
== END ==
LOC: RADMAMWWP 14:14
PROVIDERS: ATTEND Surgery
DX: Z12.31 Encounter for screening mammogram for malignant neoplasm of breast (principal)
CPT/HCPCS: 77063; 77067

== ENCOUNTER → 2018-11-21 | Outpatient (CLI) | payer MEDICARE ==
[2018-11-21 14:30] VITALS: BP 131/79; PULSE 93; RESP 18; TEMP 98
--- NOTE | 2018-11-21 15:38 | P.GSHP ---
History of Present Illness H&P Date: 11/21/18 Chief Complaint: breast exam Anna is a 68-year-old white female who was here for breast evaluation. She has a long history of fibrocystic breast disease and has had multiple cyst aspirated in the past. She has had a left breast open biopsy which was benign. And she has had a left breast aspiration by radiology where a clip was left approximately 4 years ago. All of these have been benign. She has however had tenderness in her left breast in the lateral aspect since the aspiration with the clip being left. The tenderness is decreased at this time. She has no new lumps masses or nodules in her breasts. She has no nipple discharge or skin changes. She is not complaining of any trauma to her breast. She has no history of any infection of the breast. She underwent a bilateral mammogram on 11/18/2018. This was felt to be negative BIRADS 1. Family History: 1. maternal aunt: breast and uterine cancer 2. father: leukemia at 77 Hormonal history Menarche: 11 Pregnancies: 3, 2 children, one miscarriage, age of first live 27, breast- fed: Yes Menopause:46 BCP: 10 years hormones: Premarin cream twice a week Estrogen: 8 years Past Surgical History: 1. benign breast cyst 2. two cataracts 3. two foot surgeries (bone graft left toe) Past Medical History: 1. Scoliosis/back pain 2. Osteoarthritis Social History: smoke: none alcohol: 2 times/month drugs: none - Constitutional Constitutional: Denies chills, Denies fever - EENT Comment: cataract surgery Eyes: denies blurred vision, denies pain Ears: deny: decreased hearing, tinnitus Ears, nose, mouth and throat: Denies headache, Denies sore throat - Breasts Breasts: bilateral: as per HPI - Cardiovascular Cardiovascular: Reports shortness of breath, Denies chest pain - Respiratory Respiratory: Reports cough - Gastrointestinal Gastrointestinal: Denies abdominal pain, Denies diarrhea, Denies nausea, Denies vomiting - Genitourinary (Female) Genitourinary: Denies dysuria, Denies hematuria - Menstruation Menstruation: Reports postmenopausal - Musculoskeletal Comment: back pain, osterpenia, osteoarthritis - Integumentary Comment: Granuloma annulare Integumentary: Reports rash, Denies pruritus - Neurological Neurological: Reports numbness, Reports weakness - Psychiatric Psychiatric: Reports anxiety - Endocrine Endocrine: Reports fatigue, Denies weight change - Hematologic/Lymphatic Comment: none - Allergic/Immunologic Comment: none Allergic/Immunologic: Reports as per HPI Past Medical History Past Medical History: GERD/Reflux, Osteoarthritis (OA), Skin Disorder, Thyroid Disorder Additional Past Medical History / Comment(s): granuloma annulare, hypothyroid History of Any Multi-Drug Resistant Organisms: None Reported Past Surgical History: Breast Surgery Additional Past Surgical History / Comment(s): D & C. left foot surgery. bilateral cateracts, left great toe implant removed and toe straightened 2017. Past Anesthesia/Blood Transfusion Reactions: Motion Sickness, Postoperative Nausea & Vomiting (PONV) Past Psychological History: Anxiety Smoking Status: Never smoker Past Alcohol Use History: Occasional Past Drug Use History: None Reported - Past Family History Father Additional Family Medical History / Comment(s): leukemia Medications and Allergies Home Medications Medication Instructions Recorded Confirmed Type Thyroid,Pork [[place] Thyroid] 90 mg PO QAM 07/08/14 11/21/18 History Estrogens, Conjugated Cream 1 applicator VAGINAL DIRECTED 09/30/17 11/21/18 History [Premarin Cream] L.acidoph,Paracasei, B.lactis 1 cap PO DAILY 09/30/17 11/21/18 History [Probiotic] Ranitidine HCl [Zantac] 150 mg PO BID PRN 09/30/17 11/21/18 History Sucralfate [Carafate] 1 gm PO DAILY PRN 09/30/17 11/21/18 History Ascorbic Acid [Vitamin C] 500 mg PO BID 05/08/18 11/21/18 History Calcium Carbonate [Calcium] 600 mg PO DAILY 05/08/18 11/21/18 History Cholecalciferol (Vitamin D3) 4,000 unit PO DAILY 05/08/18 11/21/18 History [Vitamin D3] LORazepam [Ativan] 0.5 mg PO TID PRN 05/08/18 11/21/18 History Magnesium Gluconate [Magonate] 500 mg PO BID 05/08/18 11/21/18 History Acetaminophen Tab [Tylenol] 650 mg PO Q6HR PRN tab 05/09/18 11/21/18 Rx Ibuprofen [Motrin] 400 mg PO Q6HR PRN tab 05/09/18 11/21/18 Rx Allergies Allergy/AdvReac Type Severity Reaction Status Date / Time lansoprazole [From Prevacid] Allergy Rash/Hives Verified 11/21/18 14:21 nitrofurantoin Allergy Anaphylaxis Verified 11/21/18 14:21 macrocrystalline [From Macrodantin] Sulfa (Sulfonamide Allergy Rash/Hives Verified 11/21/18 14:21 Antibiotics) codeine AdvReac Unknown Verified 11/21/18 14:21 Surgical - Exam Vital Signs Temp Pulse Resp BP Pulse Ox 98.0 F 93 18 131/79 99 11/21/18 14:25 11/21/18 14:25 11/21/18 14:25 11/21/18 14:25 11/21/18 14:25 BMI 22.3 - General well developed, well nourished, no distress - Eyes normal ocular movement - ENT no hearing loss, no congestion - Neck no masses, trachea midline - Respiratory normal respiratory effort, clear to auscultation - Cardiovascular Rhythm: regular Heart Sounds: normal: S1, S2 - Abdomen Abdomen: soft - Integumentary granuloma annulare under her breast - Neurologic no disoriented, no combative - Musculoskeletal normal gait, normal posture - Psychiatric oriented to time, oriented to person, oriented to place, speech is normal, memory intact Breast examination: Right breast: Multi-positional exam no dominant mass or nodules of concern, fibrocystic changes Right axilla: No adenopathy of concern Left breast: Multiple-positional exam no dominant masses or nodules of concern, fibrocystic changes Left axilla: No adenopathy of concern Results Bilateral mammogram BIRADS 1 results reviewed Assessment and Plan Assessment: Impression: 1. Fibrocystic breast changes 2. Status post bilateral cataract surgery 3. Scoliosis 4. Osteopenia/osteoarthritis/scoliosis 5. Patient uses Premarin cream 6. staus post foot surgery Plan: 1. Repeat bilateral mammogram in 1 year with physician exam at that time 2. Medical management of medical conditions Cc: Dr. Madden
== END | disposition home or self-care (01) ==
LOC: WWCWWP 13:52
PROVIDERS: ATTEND Surgery
DX: Z53.9 Procedure and treatment not carried out, unspecified reason (principal)

== ENCOUNTER → 2018-12-03 | Outpatient (CLI) | payer MEDICARE ==
[2018-12-03 11:34] VITALS: BP 129/75; PULSE 75; RESP 18; TEMP 96.1; BMI 23.0
--- NOTE | 2018-12-03 12:35 | P.HPOB ---
History of Present Illness H&P Date: 12/03/18 Chief Complaint: The patient is here for her routine gynecologic exam. This is a 68 year old with an LMP of 1994. The patient is without gynecologic complaints. She states she has done well using vaginal estrogen cream. She has been using this for vaginal atrophy and vaginal dryness. Review of Systems Her weight has been stable. She denies respiratory, cardiac and G.I. problems. She denies maltreatment or problems with falling. : occasional urinary urgency where she has to get to the bathroom right away, but this is not new. Musculoskeletal: she has been having difficulty walking and has used a cane or wheelchair following her left foot and leg surgeries. Past Medical History Past Medical History: GERD/Reflux, Osteoarthritis (OA), Skin Disorder, Thyroid Disorder Additional Past Medical History / Comment(s): granuloma annulare, hypothyroid, chronic back problems. Osteoporosis declining medications. History of Any Multi-Drug Resistant Organisms: None Reported Past Surgical History: Breast Surgery (Benign breast cyst removed in her 30s) Additional Past Surgical History / Comment(s): D & C. left foot surgery. bilateral cateracts, left great toe implant removed and toe straightened 2017. Colonoscopy 2013. Past Anesthesia/Blood Transfusion Reactions: Motion Sickness, Postoperative Nausea & Vomiting (PONV) Past Psychological History: Anxiety Smoking Status: Never smoker Past Alcohol Use History: Occasional (1 every 2 weeks.) Past Drug Use History: None Reported Additional History: She has been since 1969 and is sexually active. 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 - Past Family History Father Family Medical History: Cancer Additional Family Medical History / Comment(s): leukemia Mother Additional Family Medical History / Comment(s): Cardiac pacemaker. Maternal aunt had breast cancer. A grandmother had gastric cancer. Medications and Allergies Home Medications Medication Instructions Recorded Confirmed Type Thyroid,Pork [[place] Thyroid] 90 mg PO QAM 07/08/14 12/03/18 History Estrogens, Conjugated Cream 1 applicator VAGINAL DIRECTED 09/30/17 12/03/18 History [Premarin Cream] L.acidoph,Paracasei, B.lactis 1 cap PO DAILY 09/30/17 12/03/18 History [Probiotic] Ranitidine HCl [Zantac] 150 mg PO BID PRN 09/30/17 12/03/18 History Sucralfate [Carafate] 1 gm PO DAILY PRN 09/30/17 12/03/18 History Ascorbic Acid [Vitamin C] 500 mg PO BID 05/08/18 12/03/18 History Calcium Carbonate [Calcium] 600 mg PO DAILY 05/08/18 12/03/18 History Cholecalciferol (Vitamin D3) 4,000 unit PO DAILY 05/08/18 12/03/18 History [Vitamin D3] LORazepam [Ativan] 0.5 mg PO TID PRN 05/08/18 12/03/18 History Magnesium Gluconate [Magonate] 500 mg PO BID 05/08/18 12/03/18 History Acetaminophen Tab [Tylenol] 650 mg PO Q6HR PRN tab 05/09/18 12/03/18 Rx Ibuprofen [Motrin] 400 mg PO Q6HR PRN tab 05/09/18 12/03/18 Rx Allergies Allergy/AdvReac Type Severity Reaction Status Date / Time lansoprazole [From Prevacid] Allergy Rash/Hives Verified 12/03/18 11:21 nitrofurantoin Allergy Anaphylaxis Verified 12/03/18 11:21 macrocrystalline [From Macrodantin] Sulfa (Sulfonamide Allergy Rash/Hives Verified 12/03/18 11:21 Antibiotics) codeine AdvReac Unknown Verified 12/03/18 11:21 Exam Vital Signs Temp Pulse Resp BP Pulse Ox 12/03/18 11:32 96.1 F L 75 18 129/75 100 Intake and Output 12/02/18 12/03/18 12/03/18 22:59 06:59 14:59 Other: Weight 60.781 kg Height 5'4", weight 134 pounds, BMI 23.0. This is a well-developed well-nourished white female who is alert and oriented times 3 in no acute distress. HEENT: Within normal limits. NECK: Supple without mass or thyromegaly. CHEST AND LUNGS: Clear to auscultation. HEART: Regular rate and rhythm. BREASTS: deferred sentence this was just done recently by Dr. Rom Euceda, her breast surgeon. AXILLARY EXAM: deferred BACK: Negative for CVA tenderness. ABDOMEN: Soft, nontender, without palpable masses. PELVIC EXAM: Normal external genitalia with mild to moderate atrophy. Cervix and vagina appear normal mild to moderate atrophy. There is no unusual discharge. There is no evidence of prolapse. The uterus is midposition, nongravid size and nontender. There are no palpable adnexal masses or tenderness. RECTAL EXAM: rectovaginal exam is negative for mass or tenderness and is negative for occult blood. EXTREMITIES: Nontender. IMPRESSION: 1. 68-year-old menopausal female with normal gynecologic exam. 2. Doing well with Premarin vaginal cream for vaginal dryness and atrophy. 3. History of osteoporosis . The patient is declining any medication or testing for this. PLAN: 1. Pap smear was deferred is that she had a normal one on 11/27/2017. 2. Self breast awareness was discussed with the patient. She will continue to follow-up with Dr. Rom Euceda for breast checks. Mammogram done on 11/18/2018 was benign. She will repeat this in one year. 3. Osteoporosis management was discussed. I have stressed the importance of adequate calcium, vitamin D and regular exercise. Recommended amounts of calcium and vitamin D were also discussed. She again has declined any type of medication for osteoporosis as well as any testing for bone density and bone strength. 4. She will continue using Premarin vaginal cream 1 g intravaginally 2 times weekly. The electronic prescription will be sent to [facility] pharmacy in [place]. 5. She will return in one year for her annual well woman exam.
== END | disposition home or self-care (01) ==
LOC: WWCWWP 11:01
PROVIDERS: ATTEND Obstetrics & Gynecology
DX: Z53.9 Procedure and treatment not carried out, unspecified reason (principal)

== ENCOUNTER → 2019-01-29 | Outpatient (CLI) | payer MEDICARE ==
--- NOTE | 2019-01-29 14:24 | US ---
EXAMINATION TYPE: US extremity nonvasculr ltd LT DATE OF EXAM: 01/29/2019 COMPARISON: NONE CLINICAL HISTORY: M25.562 PAIN IN LT KNEE. left popiteal fossa swelling, recent calf muscle tear and multiple surgeries Scanned popiteal fossa and it appears wnl. soft tissue scan showed no fluid collections or abnormalit ies. IMPRESSION: No distinct abnormality seen.
== END | disposition home or self-care (01) ==
LOC: RADUSWWP 12:45
PROVIDERS: ATTEND Orthopaedic Surgery Sports Medicine
DX: M25.562 Pain in left knee (principal); E03.8 Other specified hypothyroidism; S86.192 Other injury of other muscle(s) and tendon(s) of posterior muscle group at lower leg level, left leg

== ENCOUNTER 2019-05-02 20:33 | Emergency (ER) | payer MEDICARE ==
[2019-05-02 20:45] VITALS: TEMP 98.9
[2019-05-02] MEDS ORDERED: ACETAMINOPHEN TAB 325 MG TAB PO STA (21:36)
[2019-05-02 22:17] LABS: Albumin 4.3 g/dL (3.5-5.0); Calcium 9.7 mg/dL (8.4-10.2); Potassium 4.4 mmol/L (3.5-5.1); Total Bilirubin 1.1 mg/dL (0.2-1.3); Total Protein 7.6 g/dL (6.3-8.2)
[2019-05-02 22:18] LABS: Partial Thromboplastin Time 25.4 sec (22.0-30.0); Prothrombin Time 10.5 sec (9.0-12.0)
[2019-05-02 22:24] LABS: Basophils % (A) 0 %; Eosinophils # (A) 0.1 k/uL (0-0.7); Eosinophils % (A) 1 %; HCT 41.2 % (34.0-46.0); HGB 12.4 gm/dL (11.4-16.0); Lymphocytes # (A) 1.2 k/uL (1.0-4.8); Lymphocytes % (A) 9 %; MCH 27.6 pg (25.0-35.0); MCHC 30.1 g/dL (31.0-37.0); MCV 91.6 fL (80.0-100.0); Mean Platelet Volume 7.1; Monocytes # (A) 0.7 k/uL (0-1.0); Monocytes % (A) 5 %; Neutrophils # (A) 11.1 k/uL (1.3-7.7); Neutrophils % (A) 84 %; Platelet Count 243 k/uL (150-450); RDW 12.5 % (11.5-15.5); WBC 13.3 k/uL (3.8-10.6)
[2019-05-02] MEDS ORDERED: SODIUM CHLORIDE 0.9% 1,000 ML IV ONE (23:41)
--- NOTE | 2019-05-03 00:07 | CT ---
EXAM: CT Abdomen and Pelvis With Intravenous Contrast CLINICAL HISTORY: ITS.REASON CT Reason: abdominal pain TECHNIQUE: Axial computed tomography images of the abdomen and pelvis with intravenous contrast. This CT exam was performed using one or more of the following dose reduction techniques: automated exposure control, adjustment of the mA and/or kV according to patient size, and/or use of iterative reconstruction technique. COMPARISON: No relevant prior studies available. FINDINGS: Lung bases: Unremarkable. No mass. No consolidation. ABDOMEN: Liver: Unremarkable. No mass. Gallbladder and bile ducts: No abnormal ductal dilation or stones. Pancreas: Unremarkable. No mass. No ductal dilation. Spleen: Unremarkable. No splenomegaly. Adrenals: Unremarkable. No mass. Kidneys and ureters: Unremarkable. No solid mass. No hydronephrosis. Stomach and bowel: Acute sigmoid diverticulitis. PELVIS: Appendix: No findings to suggest acute appendicitis. Bladder: Unremarkable. No mass. Reproductive: Unremarkable as visualized. ABDOMEN and PELVIS: Intraperitoneal space: Unremarkable. No free air. No significant fluid collection. Bones/joints: No acute fracture. No dislocation. Soft tissues: Unremarkable. Vasculature: No abdominal aortic aneurysm. Lymph nodes: Unremarkable. No enlarged lymph nodes. IMPRESSION: Acute sigmoid diverticulitis.
[2019-05-03] MEDS ORDERED: DICYCLOMINE 10 MG CAP PO STA (00:16)
--- NOTE | 2019-05-03 00:19 | ED ---
Abdominal Pain HPI - General Chief Complaint: Abdominal Pain Stated Complaint: Abd pain Hx diverticulitis Time Seen by Provider: 05/02/19 20:45 Source: patient Mode of arrival: ambulatory Limitations: no limitations - History of Present Illness Initial Comments: The patient is a 69-year-old female presents the emergency room with reported abdominal pain. She states that it's been going on since yesterday. She does have a history of similar in the past and does believe it is her diverticulitis. She states that yesterday she felt as if she was constipated with lower abdominal cramping. She did take some MiraLAX and milk of magnesia. She did not have any bowel movements until this morning. States her bowel movements were bright red blood in color. Happened around 3 PM today. States she's had no further episodes of bleeding. She continues to have abdominal discomfort. No report of any fevers but has had chills. She does not take any blood thinners. She denies any urinary changes to include dysuria, hematuria or difficulty voiding. She denies any abnormal vaginal bleeding or discharge. No back or flank pain. She did call Dr. Madden who instructed her to come to the emergency room. She did state that she took a dose of Bactrim at home as this is the only medication that she had. There are no other alleviating, precipitating or modifying factors - Related Data Home Medications Medication Instructions Recorded Confirmed Thyroid,Pork [[place] Thyroid] 90 mg PO DAILY 07/08/14 05/02/19 L.acidoph,Paracasei, B.lactis 1 cap PO DAILY 09/30/17 05/02/19 [Probiotic] Ranitidine HCl [Zantac] 150 mg PO BID PRN 09/30/17 05/02/19 Sucralfate [Carafate] 1 gm PO ACHS PRN 09/30/17 05/02/19 LORazepam [Ativan] 0.5 mg PO TID PRN 05/08/18 05/02/19 Magnesium Gluconate [Magonate] 500 mg PO BID 05/08/18 05/02/19 Cholecalciferol [Vitamin D3 (25 1,000 unit PO DAILY 05/02/19 05/02/19 Mcg = 1000 Iu)] Glucosam/Artemio-Msm1/C/Margarito/Bosw 1 tab PO DAILY 05/02/19 05/02/19 [Glucosamine-Chondroitin Tablet] Hyoscyamine Sulfate [Levsin] 0.125 mg PO TID PRN 05/02/19 05/02/19 Previous Rx's Medication Instructions Recorded Acetaminophen Tab [Tylenol] 650 mg PO Q6HR PRN tab 05/09/18 Ibuprofen [Motrin] 400 mg PO Q6HR PRN tab 05/09/18 Amoxicillin/Potassium Clav 1 tab PO Q12HR #20 tab 05/03/19 [Augmentin 875-125 Tablet] Dicyclomine [Bentyl] 20 mg PO TID PRN #30 tablet 05/03/19 Allergies Allergy/AdvReac Type Severity Reaction Status Date / Time lansoprazole [From Prevacid] Allergy Rash/Hives Verified 05/02/19 21:52 nitrofurantoin Allergy Anaphylaxis Verified 05/02/19 21:52 macrocrystalline [From Macrodantin] Sulfa (Sulfonamide Allergy Rash/Hives Verified 05/02/19 21:52 Antibiotics) codeine AdvReac Unknown Verified 05/02/19 21:52 Review of Systems ROS Statement: Those systems with pertinent positive or pertinent negative responses have been documented in the HPI. ROS Other: All systems not noted in ROS Statement are negative. Past Medical History Past Medical History: GERD/Reflux, Osteoarthritis (OA), Skin Disorder, Thyroid Disorder Additional Past Medical History / Comment(s): granuloma annulare, hypothyroid, chronic back problems. Osteoporosis declining medications. diverticulitis History of Any Multi-Drug Resistant Organisms: None Reported Past Surgical History: Breast Surgery Additional Past Surgical History / Comment(s): D & C. left foot surgery. bi lateral cateracts, left great toe implant removed and toe straightened 05-08-2018. Colonoscopy 2013. Past Anesthesia/Blood Transfusion Reactions: Motion Sickness, Postoperative Nausea & Vomiting (PONV) Past Psychological History: No Psychological Hx Reported Smoking Status: Never smoker Past Alcohol Use History: Occasional Past Drug Use History: None Reported - Past Family History Mother Additional Family Medical History / Comment(s): Cardiac pacemaker. Maternal aunt had breast cancer. A grandmother had gastric cancer. Father Family Medical History: Cancer Additional Family Medical History / Comment(s): leukemia General Exam Limitations: no limitations General appearance: alert, in no apparent distress Head exam: Present: atraumatic, normocephalic, normal inspection Eye exam: Present: normal appearance, PERRL, EOMI. Absent: scleral icterus, conjunctival injection, periorbital swelling ENT exam: Present: normal exam, mucous membranes moist Neck exam: Present: normal inspection. Absent: tenderness, meningismus, lymphadenopathy Respiratory exam: Present: normal lung sounds bilaterally. Absent: respiratory distress, wheezes, rales, rhonchi, stridor Cardiovascular Exam: Present: regular rate, normal rhythm, normal heart sounds. Absent: systolic murmur, diastolic murmur, rubs, gallop, clicks GI/Abdominal exam: Present: soft, tenderness (very minimal tenderness in all abd quadrants), normal bowel sounds. Absent: distended, guarding, rebound, rigid Extremities exam: Present: normal inspection, full ROM, normal capillary refill. Absent: tenderness, pedal edema, joint swelling, calf tenderness Back exam: Present: normal inspection Neurological exam: Present: alert, oriented X3, CN II-XII intact Psychiatric exam: Present: normal affect, normal mood Skin exam: Present: warm, dry, intact, normal color. Absent: rash Course Vital Signs 05/02/19 05/03/19 20:42 00:34 Temperature 98.9 F Pulse Rate 92 78 Respiratory 18 16 Rate Blood Pressure 145/91 116/53 O2 Sat by Pulse 99 Oximetry Medical Decision Making - Medical Decision Making Upon arrival the patient was placed into room 24. She is hooked up to continuous pulse ox and cardiac monitoring. A peripheral IV was established. The patient was given a liter bolus of 0.9% NaCl. She is requesting Tylenol for pain control. She was given 650 mg. I did recommend laboratory studies, urinalysis and a CT of her abdomen and pelvis for which the patient did agree. Upon return of the results I did discuss them with the patient. The patient does have signs of acute diverticulitis on CT. There is no signs of perforation. The patient's does have a white blood for count of 13.3. I did recommend hospital admission for IV antibiotics and pain control. The patient is refusing at this time stating that she would like to try oral antibiotics at home. Because of this I did provide the patient with a gram of Rocephin while she was hospitalized. I also provided her with a dose of Bentyl for her abdominal cramping. She will be written prescriptions for Augmentin and Bentyl. She's take the medications as directed. She needs to follow-up with Dr. Foster as she her is her GI doctor. She was also follow-up with her primary care physician. If she has any new or worsening symptoms she should return to the emergency room. The patient was in agreement to plan. She is discharged home in stable condition - Differential Diagnosis acute abd pain, acute diverticulosis, leukocytosis, LBIG - Lab Data Result diagrams: 05/02/19 21:53 05/02/19 21:53 Lab Results 05/02/19 05/02/19 05/02/19 Range/Units 21:53 21:53 21:53 WBC 13.3 H (3.8-10.6) k/uL RBC 4.50 (3.80-5.40) m/uL Hgb 12.4 (11.4-16.0) gm/dL Hct 41.2 (34.0-46.0) % MCV 91.6 (80.0-100.0) fL MCH 27.6 (25.0-35.0) pg MCHC 30.1 L (31.0-37.0) g/dL RDW 12.5 (11.5-15.5) % Plt Count 243 (150-450) k/uL Neutrophils % 84 % Lymphocytes % 9 % Monocytes % 5 % Eosinophils % 1 % Basophils % 0 % Neutrophils # 11.1 H (1.3-7.7) k/uL Lymphocytes # 1.2 (1.0-4.8) k/uL Monocytes # 0.7 (0-1.0) k/uL Eosinophils # 0.1 (0-0.7) k/uL Basophils # 0.0 (0-0.2) k/uL PT (9.0-12.0) sec INR (<1.2) APTT (22.0-30.0) sec Sodium 139 (137-145) mmol/L Potassium 4.4 (3.5-5.1) mmol/L Chloride 104 (98-107) mmol/L Carbon Dioxide 25 (22-30) mmol/L Anion Gap 10 mmol/L BUN 11 (7-17) mg/dL Creatinine 0.85 (0.52-1.04) mg/dL Est GFR (CKD-EPI)AfAm 80 (>60 ml/min/1.73 sqM) Est GFR (CKD-EPI)NonAf 69 (>60 ml/min/1.73 sqM) Glucose 114 H (74-99) mg/dL Plasma Lactic Acid Alexandre 1.5 (0.7-2.0) mmol/L Calcium 9.7 (8.4-10.2) mg/dL Total Bilirubin 1.1 (0.2-1.3) mg/dL AST 28 (14-36) U/L ALT 24 (9-52) U/L Alkaline Phosphatase 110 (38-126) U/L Total Protein 7.6 (6.3-8.2) g/dL Albumin 4.3 (3.5-5.0) g/dL Lipase 116 (23-300) U/L Stool Occult Blood (Negative) 05/02/19 05/02/19 Range/Units 21:53 21:55 WBC (3.8-10.6) k/uL RBC (3.80-5.40) m/uL Hgb (11.4-16.0) gm/dL Hct (34.0-46.0) % MCV (80.0-100.0) fL MCH (25.0-35.0) pg MCHC (31.0-37.0) g/dL RDW (11.5-15.5) % Plt Count (150-450) k/uL Neutrophils % % Lymphocytes % % Monocytes % % Eosinophils % % Basophils % % Neutrophils # (1.3-7.7) k/uL Lymphocytes # (1.0-4.8) k/uL Monocytes # (0-1.0) k/uL Eosinophils # (0-0.7) k/uL Basophils # (0-0.2) k/uL PT 10.5 (9.0-12.0) sec INR 1.0 (<1.2) APTT 25.4 (22.0-30.0) sec Sodium (137-145) mmol/L Potassium (3.5-5.1) mmol/L Chloride (98-107) mmol/L Carbon Dioxide (22-30) mmol/L Anion Gap mmol/L BUN (7-17) mg/dL Creatinine (0.52-1.04) mg/dL Est GFR (CKD-EPI)AfAm (>60 ml/min/1.73 sqM) Est GFR (CKD-EPI)NonAf (>60 ml/min/1.73 sqM) Glucose (74-99) mg/dL Plasma Lactic Acid Alexandre (0.7-2.0) mmol/L Calcium (8.4-10.2) mg/dL Total Bilirubin (0.2-1.3) mg/dL AST (14-36) U/L ALT (9-52) U/L Alkaline Phosphatase (38-126) U/L Total Protein (6.3-8.2) g/dL Albumin (3.5-5.0) g/dL Lipase (23-300) U/L Stool Occult Blood Negative (Negative) Disposition Clinical Impression: Abdominal pain, Diverticulitis Disposition: HOME SELF-CARE Condition: Stable Instructions (If sedation given, give patient instructions): Diverticulitis (ED) Additional Instructions: Please follow-up with your primary care doctor within 1-2 days. Take the antibiotics as directed and a clear liquid diet. Advance diet as tolerated. You should also follow-up with Dr. Foster in office. Return to the emergency room for any new or worsening symptoms Prescriptions: Amoxicillin/Potassium Clav [Augmentin 875-125 Tablet] 1 tab PO Q12HR #20 tab Dicyclomine [Bentyl] 20 mg PO TID PRN #30 tablet PRN Reason: Gi Upset Is patient prescribed a controlled substance at d/c from ED?: No Referrals: Twan Madden MD [Primary Care Provider] - 1-2 days Time of Disposition: 12:55
[2019-05-03 00:37] VITALS: BP 116/53; PULSE 78; RESP 16
== END 2019-05-03 00:53 | disposition home or self-care (01) ==
LOC: EC 20:33
DX: K57.32 Diverticulitis of large intestine without perforation or abscess without bleeding (principal); K21.9 Gastro-esophageal reflux disease without esophagitis; E03.9 Hypothyroidism, unspecified; Z79.899 Other long term (current) drug therapy; Z88.1 Allergy status to other antibiotic agents; Z88.2 Allergy status to sulfonamides; Z88.5 Allergy status to narcotic agent; Z88.8 Allergy status to other drugs, medicaments and biological substances
CPT/HCPCS: 36415; 80053; 83605; 83690; 85025; 85610; 85730; 82272; 74177; 99284; 96365; 96361; J0696

== ENCOUNTER → 2019-11-20 | Outpatient (CLI) | payer MEDICARE ==
--- NOTE | 2019-11-21 09:39 | MM ---
Reason for exam: screening (asymptomatic). Last mammogram was performed 1 year ago. History: Patient is postmenopausal. Family history of breast cancer in aunt at age 65. Benign US breast aspiration single LT of the left breast, March 04, 2015. Benign cyst aspiration of the left breast. Benign cyst aspiration of the right breast. Benign excisional biopsy of the left breast. Took hormonal contraceptives for 10 years beginning at age 18. Took estrogen for 5 years beginning at age 53. Took progesterone for 2 years. Physical Findings: A clinical breast exam by your physician is recommended on an annual basis and results should be correlated with mammographic findings. MG 3D Screening Mammo W/Cad Bilateral CC and MLO view(s) were taken. Prior study comparison: November 18, 2018, bilateral MG 3d screening mammo w/cad. October 30, 2017, bilateral MG 3d screening mammo w/cad. The breast tissue is heterogeneously dense. This may lower the sensitivity of mammography. Benign calcifications. Previous mammotome biopsy in the left breast. ASSESSMENT: Benign, BI-RAD 2 RECOMMENDATION: Routine screening mammogram of both breasts in 1 year.
== END ==
LOC: RADMAMWWP 10:54
PROVIDERS: ATTEND Surgery
DX: Z12.31 Encounter for screening mammogram for malignant neoplasm of breast (principal)
CPT/HCPCS: 77063; 77067

== ENCOUNTER → 2020-03-09 | Outpatient (CLI) | payer MEDICARE ==
[2020-03-09 10:56] VITALS: BP 121/74; PULSE 78; RESP 18; TEMP 98.7
--- NOTE | 2020-03-09 11:38 | P.HPOB ---
History of Present Illness H&P Date: 03/09/20 Chief Complaint: The patient is here for her routine gynecologic exam. This is a 70-year-old 012 with an LMP of 1994. The patient is without gynecologic complaints. She continues to use Premarin vaginal cream and this helps with vaginal dryness associated with sexual activity. She also continues to use oral trimethoprim after sexual intercourse to prevent urinary tract infections. She is without gynecologic complaints and denies any postmenopausal bleeding. Review of Systems She has gained about 4 pounds over the last year.. She denies respiratory, cardiac and G.I. problems. She denies maltreatment or problems with falling. : she denies any significant problems with urinary leakage. Past Medical History Past Medical History: GERD/Reflux, Osteoarthritis (OA), Skin Disorder, Thyroid D isorder Additional Past Medical History / Comment(s): granuloma annulare, hypothyroid, chronic back problems. Osteoporosis declining medications. diverticulitis. 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 History of Any Multi-Drug Resistant Organisms: None Reported Past Surgical History: Breast Surgery Additional Past Surgical History / Comment(s): D & C. left foot surgery. bilateral cateracts, left great toe implant removed and toe straightened 05-08-2018. Colonoscopy 2013(next after 10yr). Past Anesthesia/Blood Transfusion Reactions: Motion Sickness, Postoperative Nausea & Vomiting (PONV) Past Psychological History: No Psychological Hx Reported Smoking Status: Never smoker Past Alcohol Use History: Occasional (One per week) Past Drug Use History: None Reported Additional History: She has been since 1970 and is sexually active. 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 Her mother has been in hospice care since 2019. - Past Family History Mother Additional Family Medical History / Comment(s): Cardiac pacemaker. Maternal aunt had breast cancer. A grandmother had gastric cancer. Father Family Medical History: Cancer Additional Family Medical History / Comment(s): leukemia Medications and Allergies Home Medications Medication Instructions Recorded Confirmed Type Thyroid,Pork [[place] Thyroid] 90 mg PO DAILY 07/08/14 03/09/20 History L.acidoph,Paracasei, B.lactis 1 cap PO DAILY 09/30/17 03/09/20 History [Probiotic] Magnesium Gluconate [Magonate] 500 mg PO BID 05/08/18 03/09/20 History Acetaminophen Tab [Tylenol] 650 mg PO Q6HR PRN tab 05/09/18 03/09/20 Rx Ibuprofen [Motrin] 400 mg PO Q6HR PRN tab 05/09/18 03/09/20 Rx Cholecalciferol [Vitamin D3 (25 1,000 unit PO DAILY 05/02/19 03/09/20 History Mcg = 1000 Iu)] Estrogens, Conjugated Cream 1 applicator VAGINAL DAILY 11/27/19 03/09/20 History [Premarin Cream] Famotidine [Pepcid] 20 mg PO BID 11/27/19 03/09/20 History Gabapentin [Neurontin] 400 mg PO TID 11/27/19 03/09/20 History Chondroitin 1 tab PO DAILY 03/09/20 History Allergies Allergy/AdvReac Type Severity Reaction Status Date / Time lansoprazole [From Prevacid] Allergy Rash/Hives Verified 03/09/20 11:00 nitrofurantoin Allergy Anaphylaxis Verified 03/09/20 11:00 macrocrystalline [From Macrodantin] Sulfa (Sulfonamide Allergy Rash/Hives Verified 03/09/20 11:00 Antibiotics) codeine AdvReac Unknown Verified 03/09/20 11:00 levofloxacin [From Levaquin] AdvReac Unknown Unverified 03/09/20 11:00 Exam Vital Signs Temp Pulse Resp BP Pulse Ox 03/09/20 10:51 98.7 F 78 18 121/74 93 L Intake and Output 03/08/20 03/09/20 03/09/20 22:59 06:59 14:59 Other: Weight 62.596 kg Height 5 feet 3 inches, weight 138 pounds, BMI 24.4. This is a well-developed well-nourished white female who is alert and oriented times 3 in no acute distress. HEENT: Within normal limits. NECK: Supple without mass or thyromegaly. CHEST AND LUNGS: Clear to auscultation. HEART: Regular rate and rhythm. BREASTS: Refused by the patient. She had a breast exam earlier this year in November with Dr. Rom Euceda. AXILLARY EXAM: Negative for adenopathy. BACK: Negative for CVA tenderness. ABDOMEN: Soft, nontender, without palpable masses. PELVIC EXAM: Normal external genitalia with mild atrophy. Cervix and vagina appear normal is mild atrophy. There is no unusual discharge. There is no evidence of prolapse. The uterus is midposition, nongravid size and nontender. There are no palpable adnexal masses or tenderness. RECTAL EXAM: Rectovaginal exam is negative for mass or tenderness and is negative for occult blood. EXTREMITIES: Nontender. IMPRESSION: 1. 70-year-old menopausal female with normal gynecologic exam. 2. History of osteoporosis declining treatment or testing. PLAN: 1. Pap smears have been discontinued. She has had no history of cervical problems and has had adequate screening. 2. Self breast awareness was discussed with the patient. She will continue to follow up with Dr. Rom Euceda for breast checks mammogram was done on 11/21/2019 and was benign. 3. Osteoporosis management was discussed. She again is declining any medication for her osteoporosis. I have stressed the importance of adequate calcium, vitamin D and regular exercise. Recommended amounts of calcium and vitamin D were also discussed. She understands that she is at a greater risk for bone fracture. She will do whatever she can to avoid falling. Continue Premarin vaginal cream and trimethoprim 1 after intercourse to prevent UTIs. The prescription for these will be sent to [facility] pharmacy in [place]. 4. The patient was advised to return in 1-2 years for her well woman examination.
== END | disposition home or self-care (01) ==
LOC: WWCWWP 10:31
PROVIDERS: ATTEND Obstetrics & Gynecology
DX: Z53.9 Procedure and treatment not carried out, unspecified reason (principal)

== ENCOUNTER → 2020-11-22 | Outpatient (CLI) | payer MEDICARE ==
--- NOTE | 2020-11-23 12:07 | MM ---
Reason for exam: screening (asymptomatic). Last mammogram was performed 1 year ago. History: Patient is postmenopausal. Family history of breast cancer in aunt at age 65. Benign US breast aspiration single LT of the left breast, March 04, 2015. Benign cyst aspiration of the left breast. Benign cyst aspiration of the right breast. Benign excisional biopsy of the left breast. Took hormonal contraceptives for 10 years beginning at age 18. Took estrogen for 5 years beginning at age 53. Took progesterone for 2 years. Physical Findings: A clinical breast exam by your physician is recommended on an annual basis and results should be correlated with mammographic findings. MG 3D Screening Mammo W/Cad Bilateral CC and MLO view(s) were taken. Prior study comparison: November 20, 2019, bilateral MG 3d screening mammo w/cad. November 18, 2018, bilateral MG 3d screening mammo w/cad. There are scattered fibroglandular densities. There are varied sized nodules. One nodule in the left breast outer quadrant subareolar postion 3cm from nipple, measuring 5mm and an additonal 7mm nodule outer aspect left breast. There is chronic nodularity in the left breast. This finding is changed when compared with previous exams. ASSESSMENT: Incomplete: need additional imaging evaluation, BI-RAD 0 RECOMMENDATION: Ultrasound of the left breast. [facility] will attempt to contact patient to return for ultrasound.
== END | disposition home or self-care (01) ==
LOC: RADMAMWWP 10:47
PROVIDERS: ATTEND Surgery
DX: Z12.31 Encounter for screening mammogram for malignant neoplasm of breast (principal)
CPT/HCPCS: 77063; 77067

== ENCOUNTER → 2020-11-26 | Outpatient (CLI) | payer MEDICARE ==
[2020-11-26 12:37] VITALS: BP 174/91; PULSE 76; RESP 18; TEMP 98.2
--- NOTE | 2020-11-26 13:09 | P.PN ---
Subjective Progress Note Date: 11/26/20 Principal diagnosis: fibrocystic breast changes, abnormal mammogram and ultrasound left breast Anna is a 70-year-old white female who was presents for breast evaluation. She has a long history of fibrocystic breast disease and has had multiple cyst aspirated in the past. She has had a left breast open biopsy which was benign. And she has had a left breast aspiration by radiology where a clip was left approximately 4 years ago. All of these have been benign. She has however had tenderness in her left breast in the lateral aspect since the aspiration with the clip being left. She has no new lumps masses or nodules in her breasts. She has no nipple discharge or skin changes. She is not complaining of any trauma to her breast. She has no history of any infection of the breast. She had a bilateral screening mammogram and 220 221. This revealed an area of question in the left breast in the outer quadrant subareolar position and ultrasound was then performed of this area. The ultrasound confirmed a very small lesion approximately 5 mm at the site believed to the mammographic change. The recommendation as per radiology was for a stereotactic core biopsy. It was felt the lesion was too small to try to do an ultrasound- guided core biopsy. Family History: 1. maternal aunt: breast and uterine cancer 2. father: leukemia at 77 Hormonal history Menarche: 11 Pregnancies: 3, 2 children, one miscarriage, age of first live 27, breast- fed: Yes Menopause:46 BCP: 10 years hormones: Premarin cream twice a week Estrogen: 8 years Past Surgical History: 1. benign breast cyst 2. two cataracts 3. two foot surgeries (bone graft left toe) Past Medical History: 1. Scoliosis/back pain 2. Osteoarthritis Social History: smoke: none alcohol: 2 times/month drugs: none - Constitutional Constitutional: Denies chills, Denies fever - EENT Comment: cataract surgery Eyes: denies blurred vision, denies pain Ears: deny: decreased hearing, tinnitus Ears, nose, mouth and throat: Denies headache, Denies sore throat - Breasts Breasts: bilateral: as per HPI - Cardiovascular Cardiovascular: Reports shortness of breath, Denies chest pain - Respiratory Respiratory: Reports cough - Gastrointestinal Gastrointestinal: Denies abdominal pain, Denies diarrhea, Denies nausea, Denies vomiting - Genitourinary (Female) Genitourinary: Denies dysuria, Denies hematuria - Menstruation Menstruation: Reports postmenopausal - Musculoskeletal Comment: back pain, osterpenia, osteoarthritis - Integumentary Comment: Granuloma annulare Integumentary: Reports rash, Denies pruritus - Neurological Neurological: Reports numbness, Reports weakness - Psychiatric Psychiatric: Reports anxiety - Endocrine Endocrine: Reports fatigue, Denies weight change - Hematologic/Lymphatic Comment: none - Allergic/Immunologic Comment: none Allergic/Immunologic: Reports as per HPI Objective - Exam BMI 23.9 - Constitutional General appearance: Present: average body habitus - EENT Eyes: Present: EOMI ENT: Present: hearing grossly normal - Neck Neck: Present: normal ROM - Respiratory Respiratory: bilateral: CTA - Cardiovascular Rhythm: regular Heart sounds: normal: S1, S2 - Integumentary Integumentary: Present: normal turgor - Musculoskeletal Musculoskeletal: Present: gait normal - Psychiatric Psychiatric: Present: A&O x's 3, appropriate affect, intact judgment & insight - Additional findings Additional findings: Breast Exam: BRA: 38C inspection: grade 2 ptosis bilateral palpation: Right breast: Multi-positional exam fibrocystic changes, no dominant masses or nodules of concern Right axilla: No adenopathy of concern Left breast: Multiple positional exam fibrocystic changes, fullness in the upper outer quadrant area no discrete dominant masses or nodules of concern tender to palpation in the upper outer quadrant on the left breast Left axilla: No adenopathy of concern Under the left breast more than on the right is granuloma annulare Assessment and Plan Assessment: Impression: 1. Fibrocystic breast changes 2. Abnormal mammogram and ultrasound of the left breast 3. Mastodynia left breast 4. Granuloma annulare 5. left leg and foot nerve damage 2018 ( on lyrica and cymbalta) 6. scoliosis/ back pain Plan: 1. 3-D stero biopsy to be done by Dr. Leroy 2. follow up appointment after biopsy Risk and benefits of the procedure discussed with the patient. She understands and wishes to proceed. Alternatives such as watchful waiting or open biopsy at this time are not recommended. CC: Dr. Damon Encounter 15 minutes, time spent in reviewing medical record, physical exam, and counselling.
--- NOTE | 2020-12-01 15:10 | P.PN ---
Progress Note - Text Progress Note Date: 12/01/20 Mrs. Turpin has contacted me stating that she would like to delay her 3-D stereotactic core biopsy from November of 2020 to January of 2021. We have discussed that if this is a cancer it could delay the diagnosis and thus delay treatment. This could be detrimental to her health. She understands this but for family reasons has opted to delay the biopsy until January 2021.
--- NOTE | 2020-12-03 10:18 | P.PN ---
Progress Note - Text Progress Note Date: 12/02/20 Anna has contacted me today with concerns that there was a second lesion in the left breast. 5 mm lesion was described as well as a 7 mm lesion which was initially going to be followed. Her radiographs were reviewed with Dr. Coleman from radiology. He did concur that there was a second lesion in the breast; the 7 mm lesion appeared to be in proximity to a clip left from a prior breast aspiration. Dr. Coleman felt that he could identify both of these lesions not only on mammogram but also on ultrasound. He felt that he could do ultrasound core biopsy of both lesions and it would be reasonable to cancel the 3-D stereo biopsy. I discussed this with Mrs. Turpin and she has agreed to this procedure. Again she does not want to have the procedure done until December secondary to family commitments. She understands that if there should be malignancy delay in diagnosis could be detrimental. We would like to schedule this with Dr. Coleman to do the ultrasound core biopsy as he is the one that has reviewed the radiographs. She also understands that if they cannot be well seen on ultrasound it may be necessary to use further means to obtain the biopsy.
== END ==
LOC: WWCWWP 12:22
PROVIDERS: ATTEND Surgery
DX: N60.12 Diffuse cystic mastopathy of left breast (principal); L92.0 Granuloma annulare; M41.9 Scoliosis, unspecified; N64.4 Mastodynia; R92.8 Other abnormal and inconclusive findings on diagnostic imaging of breast

== ENCOUNTER → 2020-11-26 | Outpatient (CLI) | payer MEDICARE ==
--- NOTE | 2020-11-26 12:02 | USB ---
Reason for exam: additional evaluation requested from abnormal screening. History: Patient is postmenopausal. Family history of breast cancer in aunt at age 65. Benign US breast aspiration single LT of the left breast, March 04, 2015. Benign cyst aspiration of the left breast. Benign cyst aspiration of the right breast. Benign excisional biopsy of the left breast. Took hormonal contraceptives for 10 years beginning at age 18. Took estrogen for 5 years beginning at age 53. Took progesterone for 2 years. Physical Findings: Nurse did not find any significant physical abnormalities on exam. US Breast Workup LT Technologist: Pili Phelps Left limited breast ultrasound including focal area of concern, retroareolar and axilla demonstrates a 0.4 x 0.3 x 0.3cm cystic lesion at 1 o'clock and a 0.6 x 0.5 x 0.5cm cystic lesion at 2 o'clock. Dedicated reimaging 4 o'clock, no simple cyst. Biopsy recommended for new density. No ultrasound abnormality to correlate with 3mm circumscribed mammographic change lower outer quadrant 4 o'clock, 3cm from nipple. These results were verbally communicated with the patient and result sheet given to the patient on 11/26/20. ASSESSMENT: Suspicious, BI-RAD 4 RECOMMENDATION: Surgical consultation and stereotactic core biopsy of the left breast. (3D biopsy left 4 o'clock 3cm from the nipple) Called office with mammographic findings and has scheduled an appointment for the patient for 11/26/20 at 12:[address] Malagon. PRELIMINARY REPORT CALLED AND FAXED TO DR. MALAGON ON 11/26/20.
== END | disposition home or self-care (01) ==
LOC: RADUSWWP 10:15
PROVIDERS: ATTEND Surgery
DX: R92.8 Other abnormal and inconclusive findings on diagnostic imaging of breast (principal)

== ENCOUNTER → 2021-03-03 | Outpatient (CLI) | payer MEDICARE ==
--- NOTE | 2021-03-03 13:33 | MM ---
Reason for exam: follow-up at short interval from prior study. Last mammogram was performed 3 months ago. History: Patient is postmenopausal. Family history of breast cancer in aunt at age 65. Benign US breast aspiration single LT of the left breast, March 04, 2015. Benign cyst aspiration of the left breast. Benign cyst aspiration of the right breast. Benign excisional biopsy of the left breast. Took hormonal contraceptives for 10 years beginning at age 18. Took estrogen for 5 years beginning at age 53. Took progesterone for 2 years. Physical Findings: Nurse did not find any significant physical abnormalities on exam. MG 3D Diag Mammo W/Cad LT CC, MLO, and LM view(s) were taken of the left breast. Prior study comparison: November 22, 2020, bilateral MG 3d screening mammo w/cad. November 20, 2019, bilateral MG 3d screening mammo w/cad. The breast tissue is heterogeneously dense. This may lower the sensitivity of mammography. Stable 7mm nodule at 2 o'clock, 7.5cm from nipple. Smaller nodule 4mm, 3cm from nipple at 2 o'clock. Left breast ultrasound recommended. These results were verbally communicated with the patient and result sheet given to the patient on 03/03/21. ASSESSMENT: Incomplete: need additional imaging evaluation, BI-RAD 0 RECOMMENDATION: Ultrasound of the left breast.
--- NOTE | 2021-03-03 13:34 | USB ---
Reason for exam: additional evaluation requested from abnormal screening. History: Patient is postmenopausal. Family history of breast cancer in aunt at age 65. Benign US breast aspiration single LT of the left breast, March 04, 2015. Benign cyst aspiration of the left breast. Benign cyst aspiration of the right breast. Benign excisional biopsy of the left breast. Took hormonal contraceptives for 10 years beginning at age 18. Took estrogen for 5 years beginning at age 53. Took progesterone for 2 years. US Breast Limited LT Left limited breast ultrasound including focal area of concern, retroareolar and axilla demonstrates no cystic or solid lesion seen. No sonographic findings. 6 month follow up. These results were verbally communicated with the patient and result sheet given to the patient on 03/03/21. ASSESSMENT: Probably benign, BI-RAD 3 RECOMMENDATION: Follow-up diagnostic mammogram of the left breast in 6 months.
== END | disposition home or self-care (01) ==
LOC: RADMAMWWP 10:13
PROVIDERS: ATTEND Surgery
DX: R92.8 Other abnormal and inconclusive findings on diagnostic imaging of breast (principal); N63.20 Unspecified lump in the left breast, unspecified quadrant; Z78.0 Asymptomatic menopausal state; Z80.3 Family history of malignant neoplasm of breast
CPT/HCPCS: 77065; 76642; G0279; 77061

== ENCOUNTER → 2021-08-11 | Outpatient (CLI) | payer MEDICARE ==
[2021-08-11 16:03] LABS: Basophils # (A) 0.05 X 10*3/uL (0.00-0.10); Basophils % (A) 0.6 %; Eosinophils # (A) 0.19 X 10*3/uL (0.04-0.35); Eosinophils % (A) 2.4 %; HGB 13.5 g/dL (12.0-15.0); Lymphocytes % (A) 18.7 %; MCH 28.5 pg (27.0-32.0); MCHC 30.7 g/dL (32.0-37.0); Mean Platelet Volume 10.4 fL (9.5-12.2); Monocytes # (A) 0.61 X 10*3/uL (0.20-1.00); Monocytes % (A) 7.6 %; Neutrophils # (A) 5.64 X 10*3/uL (1.80-7.70); Neutrophils % (A) 70.5 %; Platelet Count 295 X 10*3/uL (140-440); RBC 4.73 X 10*6/uL (4.10-5.20); WBC 8.01 X 10*3/uL (4.50-10.00)
[2021-08-11 17:02] LABS: ALT 20 U/L (8-44); AST 29 U/L (13-35); African American GFR (CKD) 84.8 (60.0-200.0); Albumin 4.5 g/dL (3.8-4.9); Albumin/Globulin Ratio 1.61 (1.60-3.17); Alkaline Phosphatase 123 U/L (41-126); BUN/Creat Ratio 15.63 Ratio (12.00-20.00); Blood Urea Nitrogen 12.5 mg/dL (9.0-27.0); Calcium 9.7 mg/dL (8.7-10.3); Carbon Dioxide 24.6 mmol/L (21.6-31.8); Chloride 102 mmol/L (96-109); Chol/HDL Ratio 6.87 Ratio; Globulin 2.8 g/dL (1.6-3.3); Glucose 89 mg/dL (70-110); LDL Cholesterol,Calculated 259.6 mg/dL (0.0-131.0); Non-African American GFR(CKD) 73.1 (60.0-200.0); Potassium 4.7 mmol/L (3.5-5.5); Sodium 139 mmol/L (135-145); Total Protein 7.3 g/dL (6.2-8.2)
[2021-08-11 18:04] LABS: Folate, Serum >20.00 ng/mL (4.40-31.00)
== END | disposition home or self-care (01) ==
LOC: LABWHC1 07:31
PROVIDERS: ATTEND Internal Medicine Geriatric Medicine
DX: E03.8 Other specified hypothyroidism (principal); D64.9 Anemia, unspecified; E78.49 Other hyperlipidemia; R73.9 Hyperglycemia, unspecified
CPT/HCPCS: 36415; 80053; 80061; 82607; 82746; 83036; 84439; 84443; 85025

== ENCOUNTER → 2021-09-02 | Outpatient (CLI) | payer MEDICARE ==
--- NOTE | 2021-09-02 12:17 | MM ---
Reason for exam: follow-up at short interval from prior study. Last mammogram was performed 6 months ago. History: Patient is postmenopausal. Family history of breast cancer in aunt at age 65. Benign US breast aspiration single LT of the left breast, March 04, 2015. Benign cyst aspiration of the left breast. Benign cyst aspiration of the right breast. Benign excisional biopsy of the left breast. Took hormonal contraceptives for 10 years beginning at age 18. Took estrogen for 5 years beginning at age 53. Took progesterone for 2 years. Physical Findings: Nurse did not find any significant physical abnormalities on exam. MG 3D Diag Mammo W/Cad LT CC and MLO view(s) were taken of the left breast. Prior study comparison: March 03, 2021, left breast MG 3d diag mammo w/cad LT. November 22, 2020, bilateral MG 3d screening mammo w/cad. There are scattered fibroglandular densities. There are benign appearing round calcifications in the left breast. Previous mammotome biopsy in the left breast. There is chronic nodularity in the left breast. There is no discrete abnormality. These results were verbally communicated with the patient and result sheet given to the patient on 09/02/21. ASSESSMENT: Benign, BI-RAD 2 RECOMMENDATION: Return to routine screening mammogram schedule for both breasts. Back on schedule for November 2021.
== END | disposition home or self-care (01) ==
LOC: RADMAMWWP 11:03
PROVIDERS: ATTEND Surgery
DX: R92.1 Mammographic calcification found on diagnostic imaging of breast (principal); N64.89 Other specified disorders of breast; Z78.0 Asymptomatic menopausal state; Z80.3 Family history of malignant neoplasm of breast
CPT/HCPCS: 77065; G0279; 77061

== ENCOUNTER → 2021-12-08 | Outpatient (CLI) | payer MEDICARE ==
--- NOTE | 2021-12-08 13:03 | XR ---
EXAMINATION TYPE: XR chest 2V DATE OF EXAM: 12/08/2021 COMPARISON: Chest x-ray 05/08/2018 HISTORY: Cough TECHNIQUE: Frontal and lateral views of the chest are obtained. FINDINGS: There is no focal air space opacity, pleural effusion, or pneumothorax seen. The cardiac silhouette size is within normal limits. The osseous structures are intact, there is a spinal curva ture. There is elevation of right hemidiaphragm. There is some bronchial wall thickening. IMPRESSION: Correlate for bronchitis, reactive airways disease, follow-up as indicated
[2021-12-08 19:36] LABS: Basophils # (A) 0.05 X 10*3/uL (0.00-0.10); Basophils % (A) 0.9 %; Eosinophils # (A) 0.23 X 10*3/uL (0.04-0.35); Eosinophils % (A) 4.2 %; HCT 41.8 % (37.2-46.3); Immature Grans, Automated 0.2 %; Lymphocytes # (A) 1.79 X 10*3/uL (0.90-5.00); Lymphocytes % (A) 32.5 %; MCH 29.6 pg (27.0-32.0); MCHC 31.1 g/dL (32.0-37.0); MCV 95.2 fL (80.0-97.0); Mean Platelet Volume 10.8 fL (9.5-12.2); Monocytes # (A) 0.44 X 10*3/uL (0.20-1.00); NRBC Per 100 WBC 0 /100 WBCS (0.0-0.0); Neutrophils # (A) 2.99 X 10*3/uL (1.80-7.70); Neutrophils % (A) 54.2 %; Platelet Count 272 X 10*3/uL (140-440); RBC 4.39 X 10*6/uL (4.10-5.20); RDW 12.5 % (11.5-14.5); WBC 5.51 X 10*3/uL (4.50-10.00)
[2021-12-08 23:17] LABS: ALT 26 U/L (8-44); AST 28 U/L (13-35); African American GFR (CKD) 69.8 (60.0-200.0); Albumin 4.4 g/dL (3.8-4.9); Albumin/Globulin Ratio 1.55 (1.60-3.17); Alkaline Phosphatase 99 U/L (41-126); BUN/Creat Ratio 19.38 Ratio (12.00-20.00); Blood Urea Nitrogen 18.2 mg/dL (9.0-27.0); Calcium 9.9 mg/dL (8.7-10.3); Carbon Dioxide 24.6 mmol/L (20.0-27.5); Chloride 99 mmol/L (96-109); Chol/HDL Ratio 7.55 Ratio; Globulin 2.8 g/dL (1.6-3.3); Glucose 104 mg/dL (70-110); LDL Cholesterol,Calculated 253.1 mg/dL (0.0-131.0); Non-African American GFR(CKD) 60.3 (60.0-200.0); Potassium 4.3 mmol/L (3.5-5.5); Sodium 137 mmol/L (135-145); Total Protein 7.2 g/dL (6.2-8.2)
== END | disposition home or self-care (01) ==
LOC: LABWHC1 11:32
PROVIDERS: ATTEND Nurse Practitioner Family
DX: E03.9 Hypothyroidism, unspecified (principal); E78.5 Hyperlipidemia, unspecified; R61 Generalized hyperhidrosis; R73.9 Hyperglycemia, unspecified
CPT/HCPCS: 36415; 71046; 80053; 80061; 83036; 84439; 84443; 85025

== ENCOUNTER → 2022-01-05 | Outpatient (CLI) | payer MEDICARE ==
--- NOTE | 2022-01-09 10:52 | MM ---
Reason for exam: screening (asymptomatic). Last mammogram was performed 4 months ago. History: Patient is postmenopausal. Family history of breast cancer in aunt at age 65. Benign US breast aspiration single LT of the left breast, March 04, 2015. Benign cyst aspiration of the left breast. Benign cyst aspiration of the right breast. Benign excisional biopsy of the left breast. Took hormonal contraceptives for 10 years beginning at age 18. Took estrogen for 5 years beginning at age 53. Took progesterone for 2 years. Physical Findings: A clinical breast exam by your physician is recommended on an annual basis and results should be correlated with mammographic findings. MG 3D Screening Mammo W/Cad Bilateral CC and MLO view(s) were taken. Prior study comparison: November 22, 2020, bilateral MG 3d screening mammo w/cad. November 20, 2019, bilateral MG 3d screening mammo w/cad. November 18, 2018, bilateral MG 3d screening mammo w/cad. There are scattered fibroglandular densities. Previous mammotome biopsy in the left breast. There is chronic nodularity bilaterally. No significant changes when compared with prior studies. ASSESSMENT: Benign, BI-RAD 2 RECOMMENDATION: Routine screening mammogram of both breasts in 1 year.
== END | disposition home or self-care (01) ==
LOC: RADMAMWWP 11:39
PROVIDERS: ATTEND Surgery
DX: Z12.31 Encounter for screening mammogram for malignant neoplasm of breast (principal); Z80.3 Family history of malignant neoplasm of breast; Z78.0 Asymptomatic menopausal state
CPT/HCPCS: 77063; 77067

== ENCOUNTER → 2022-01-13 | Outpatient (CLI) | payer MEDICARE ==
[2022-01-13 10:31] VITALS: BP 138/66; PULSE 101; RESP 17; TEMP 97.8
--- NOTE | 2022-01-13 10:48 | P.PN ---
Subjective Progress Note Date: 01/13/22 Principal diagnosis: fibrocystic breast changes fibrocystic breast changes Anna is a 71-year-old white female who was presents for breast evaluation. She has a long history of fibrocystic breast disease and has had multiple cyst aspirated in the past. She has had a left breast open biopsy which was benign. And she has had a left breast aspiration by radiology where a clip was left approximately 4 years ago. All of these have been benign. She has however had tenderness in her left breast in the lateral aspect since the aspiration with the clip being left. She has no new lumps masses or nodules in her breasts. She has no nipple discharge or skin changes. She is not complaining of any trauma to her breast. She has no history of any infection of the breast. She had a bilateral screening mammogram and . This revealed an area of question in the left breast in the outer quadrant subareolar position and ultrasound was then performed of this area. The ultrasound confirmed a very small lesion approximately 5 mm at the site believed to the mammographic change. The recommendation as per radiology was for a stereotactic core biopsy. It was felt the lesion was too small to try to do an ultrasound-guided core biopsy. The mammogram and ultrasound were reviewed with multiple radiologist and ultimately the decision was made to do close surveillance. The patient has had a repeat bilateral mammogram performed on 4721. This was read by Dr. Shrestha and reviewed with Dr. Coleman. The findings are benign BIRADS 2 and repeat bilateral mammogram in 1 year is recommended. The patient did have questions last year regarding automated breast ultrasound, these questions were also addressed with radiology who did not feel that it was necessary. Family History: 1. maternal aunt: breast and uterine cancer 2. father: leukemia at 77 Hormonal history Menarche: 11 Pregnancies: 3, 2 children, one miscarriage, age of first live 27, breast- fed: Yes Menopause:46 BCP: 10 years hormones: Premarin cream twice a week Estrogen: 8 years Past Surgical History: 1. benign breast cyst 2. two cataracts 3. two foot surgeries (bone graft left toe) Past Medical History: 1. Scoliosis/back pain 2. Osteoarthritis Social History: smoke: none alcohol: 2 times/month drugs: none - Constitutional Constitutional: Denies chills, Denies fever - EENT Comment: cataract surgery Eyes: denies blurred vision, denies pain Ears: deny: decreased hearing, tinnitus Ears, nose, mouth and throat: Denies headache, Denies sore throat - Breasts Breasts: bilateral: as per HPI - Cardiovascular Cardiovascular: Reports shortness of breath, Denies chest pain - Respiratory Respiratory: Reports cough - Gastrointestinal Gastrointestinal: Denies abdominal pain, Denies diarrhea, Denies nausea, Denies vomiting - Genitourinary (Female) Genitourinary: Denies dysuria, Denies hematuria - Menstruation Menstruation: Reports postmenopausal - Musculoskeletal Comment: back pain, osterpenia, osteoarthritis - Integumentary Comment: Granuloma annulare Integumentary: Reports rash, Denies pruritus - Neurological Neurological: Reports numbness, Reports weakness - Psychiatric Psychiatric: Reports anxiety - Endocrine Endocrine: Reports fatigue, Denies weight change - Hematologic/Lymphatic Comment: none - Allergic/Immunologic Comment: none Allergic/Immunologic: Reports as per HPI Objective - Exam BMI 23.2 - Constitutional General appearance: Present: cooperative - EENT Eyes: Present: EOMI ENT: Present: hearing grossly normal - Neck Neck: Present: normal ROM - Respiratory Respiratory: bilateral: CTA - Cardiovascular Rhythm: regular Heart sounds: normal: S1, S2 - Integumentary Integumentary: Present: normal turgor - Musculoskeletal Musculoskeletal: Present: gait normal - Psychiatric Psychiatric: Present: A&O x's 3, appropriate affect, intact judgment & insight - Additional findings Additional findings: Breast Exam: BRA: 38C inspection: bilateral grade 2 ptosis palpation: right breast: multipositional exam fibrocystic changes no discrete dominant masses or nodules of concern Right axilla: No adenopathy of concern Left breast: Well-healed scar from prior lumpectomy/biopsy, multi positional exam fibrocystic changes no dominant masses or nodules of concern Left axilla: No adenopathy of concern Assessment and Plan Assessment: Impression: Cystic breast changes Plan: Repeat bilateral mammogram in 1 year Patient will follow up sooner any questions or concerns CC: Dr. Damon
== END ==
LOC: WWCWWP 09-08 11:38
PROVIDERS: ATTEND Surgery
DX: N60.11 Diffuse cystic mastopathy of right breast (principal); N60.12 Diffuse cystic mastopathy of left breast; M19.90 Unspecified osteoarthritis, unspecified site; Z88.1 Allergy status to other antibiotic agents; Z88.8 Allergy status to other drugs, medicaments and biological substances; Z88.2 Allergy status to sulfonamides; Z88.5 Allergy status to narcotic agent

== ENCOUNTER → 2022-03-22 | Outpatient (CLI) | payer MEDICARE ==
--- NOTE | 2022-03-22 10:18 | XR ---
EXAMINATION TYPE: XR chest 2V DATE OF EXAM: 03/22/2022 COMPARISON: 12/08/2021 TECHNIQUE: PA and lateral views submitted. HISTORY: Cough FINDINGS: The lungs are clear and there is no pneumothorax, pleural effusion, or focal pneumonia. Scoliotic c urvature of the spine. Heart size normal. No overt failure. Hyperinflation suggests COPD. IMPRESSION: 1. No acute process.
[2022-03-22 14:48] LABS: ALT 30 U/L (8-44); AST 34 U/L (13-35); African American GFR (CKD) 70.5 (60.0-200.0); Albumin 4.6 g/dL (3.8-4.9); Albumin/Globulin Ratio 1.76 (1.60-3.17); Alkaline Phosphatase 100 U/L (41-126); BUN/Creat Ratio 11.02 Ratio (12.00-20.00); Blood Urea Nitrogen 10.2 mg/dL (9.0-27.0); Carbon Dioxide 27.6 mmol/L (20.0-27.5); Chloride 102 mmol/L (96-109); Chol/HDL Ratio 3.53 Ratio; Creatine Kinase 220 U/L (26-186); Globulin 2.6 g/dL (1.6-3.3); Glucose 91 mg/dL (70-110); LDL Cholesterol,Calculated 109.9 mg/dL (0.0-131.0); Non-African American GFR(CKD) 60.9 (60.0-200.0); Potassium 4.1 mmol/L (3.5-5.5); Sodium 140 mmol/L (135-145); Total Protein 7.2 g/dL (6.2-8.2)
== END | disposition home or self-care (01) ==
LOC: LABWHC1 07:43
PROVIDERS: ATTEND Internal Medicine Geriatric Medicine
DX: E78.5 Hyperlipidemia, unspecified (principal)
CPT/HCPCS: 36415; 71046; 80053; 80061; 82550

== ENCOUNTER → 2022-10-04 | Outpatient (CLI) | payer MEDICARE ==
[2022-10-04 15:59] LABS: Basophils # (A) 0.04 X 10*3/uL (0.00-0.10); Basophils % (A) 0.6 %; Eosinophils # (A) 0.27 X 10*3/uL (0.04-0.35); HCT 43.1 % (37.2-46.3); HGB 13.6 g/dL (12.0-15.0); Immature Grans, Automated 0.3 %; Lymphocytes # (A) 2.02 X 10*3/uL (0.90-5.00); Lymphocytes % (A) 29.7 %; MCH 29.6 pg (27.0-32.0); MCHC 31.6 g/dL (32.0-37.0); MCV 93.7 fL (80.0-97.0); Mean Platelet Volume 10.3 fL (9.5-12.2); Monocytes # (A) 0.53 X 10*3/uL (0.20-1.00); Monocytes % (A) 7.8 %; NRBC Per 100 WBC 0 /100 WBCS (0.0-0.0); Neutrophils # (A) 3.92 X 10*3/uL (1.80-7.70); Neutrophils % (A) 57.6 %; Platelet Count 295 X 10*3/uL (140-440); RDW 12.4 % (11.5-14.5)
[2022-10-04 16:28] LABS: ALT 31 U/L (8-44); AST 33 U/L (13-35); Albumin 4.4 g/dL (3.8-4.9); Albumin/Globulin Ratio 1.76 (1.60-3.17); Alkaline Phosphatase 105 U/L (41-126); BUN/Creat Ratio 18.22 Ratio (12.00-20.00); Blood Urea Nitrogen 16.4 mg/dL (9.0-27.0); Calcium 9.7 mg/dL (8.7-10.3); Carbon Dioxide 27.2 mmol/L (20.0-27.5); Chloride 103 mmol/L (96-109); Chol/HDL Ratio 5.35 Ratio; Ferritin 68.4 ng/mL (10.0-291.0); Globulin 2.5 g/dL (1.6-3.3); Glucose 95 mg/dL (70-110); LDL Cholesterol,Calculated 177.2 mg/dL (0.0-131.0); Potassium 4.4 mmol/L (3.5-5.5); Sodium 142 mmol/L (135-145); Total Protein 6.9 g/dL (6.2-8.2)
== END | disposition home or self-care (01) ==
LOC: LABWHC1 08:26
PROVIDERS: ATTEND Internal Medicine Geriatric Medicine
DX: E03.9 Hypothyroidism, unspecified (principal); E78.49 Other hyperlipidemia; D64.9 Anemia, unspecified; E55.9 Vitamin D deficiency, unspecified; R73.9 Hyperglycemia, unspecified
CPT/HCPCS: 36415; 80053; 80061; 82306; 82728; 83036; 84439; 84443; 84481; 85025

== ENCOUNTER → 2022-10-04 | Outpatient (CLI) | payer MEDICARE ==
[2022-10-04 09:40] VITALS: BP 144/94; PULSE 86; RESP 18; TEMP 98.4
--- NOTE | 2022-10-04 15:32 | P.PAINPG ---
PQRS Measure Charge Sheet Comment: HISTORY OF PRESENT ILLNESS: 72 yr old female as a referral from Dr Hanna presents today w severe and chronic LBP secondary to spondylosis, levoconvex rotoscoliosis and facet arthropathy without myelopathy for evaluation. Pt states pain level is at 9 /10 in intensity, constant, localized in the lower lumbar spine, sharp in character w shooting pain towards the R hip and RLE. Pain is provoked by laying on her R side and lifting. Pain is alleviated by PT at home by her friend, home exercise twice daily x 3 wks, massage therapy 1-2 times per week 2 mo ago, heat, medications (Neurontin, Cymbalta, Tylenol), topicals, repositioning and rest. PMH: GERD, OA, Skin Disorder, Hypothyroidism, Granuloma annulare, OP PSH: D &C, L Foot Surgery, BL Cataract Resection, L Great Toe Implant Removal (2017), Breast Surgery, Colonoscopy (2013), BL RFA L3-L5 (10/2020, 10/2021), CESIs (2020), R LFC NB (07/2022) SH: Never smoker, Occasional ETOH use, No illicit drug use. FH: Mo- Cardiac Pacmaker. Maternal Aunt- Breast CA. MGM- Gastric CA. Fa- Leukemia. All: See list Meds: See list REVIEW OF ORGAN SYSTEMS: CONSTITUTIONAL: No fevers or chills. No recent weight loss. NEUROLOGICAL: + numbness and tingling along the distal extremities. No seizure disorders or headaches. MUSCULOSKELETAL: + pain PSYCHIATRIC: Denies current depression or suicidal thoughts. Physical Examinations : Constitutional : Cooperative , not in acute distress . Neurologic : Cranial nerve II to XII intact. No focal neurological deficits. Psychiatric : alert & oriented x 3. Matching mood & appropriate affect. Judgment & insight intact. Musculoskeletal : Cervical Spine Motor strength in the deltoid and biceps: Normal right side. Normal Left side Motor strength biceps and the wrist extensors: Normal right side . Normal left side Motor strength in the triceps muscle: Normal right side. Normal left side Deep tendon reflexes: Normal at the biceps. Normal at Brachioradialis. Normal at triceps Vertebral body tenderness to deep palpation over Cervical facet loading test: positive bilaterally Spurling test: positive bilaterally Neck distraction test: positive bilaterally Ev sign: positive bilaterally Lumbar spine: RLE pain w eversion Motor strength lower extremities ,thigh and legs 5/5 Right side , 5/5 Left side Deep tendon reflexes : Normal Knee Jerk. Normal Ankle Jerk Vertebral body tenderness over Lumbar facet Loading Test: positive Right / positive Left Range of motion of the lumbar spine Flexion 30 degrees, extension 10 degrees Straight Leg Raise test: Left/ Right positive at degree Chandler test: positive right / positive left. Severe tenderness over the Sacroiliac joint on the Right / Left sides Gaenslen test: positive bilaterally Seated flexion test: positive bilaterally. Sacral spine : Severe tenderness over the Sacroiliac joint: right side / left side Range of motion: Flexion of the lumbar spine <60 degrees Range of motion: Extension of the lumbar spine <20 degrees Gaenslen's Test positive Zach's Test positive Chandler test: positive right side / left side Thigh Thrust Test Sacral Thrust Test Imaging: MRI without contrast of the lumbar spine from 11/07/2020 reviewed MRI without contrast of the right hip from 08/19/22 reviewed Assessment/ Plan : Lumbar DDD Recommendation of R Lateral Femoral Cutaneous Nerve Block. May need a series of injections, up to 3 within a 6 mo period, for optimal pain relief. Risks, benefits of procedure discussed and patient verbalized understanding. Denies aspirin or anti- coagulant use or medical history of diabetes. Protocol for discontinuation/ continuation of medications veronica procedure discussed. All questions answered. I have spent greater than 30 minutes on patient care today. Dr Mercedes was available by phone for the evaluation of this patient. The time was used to review the medical records including relevant urine studies and Prescription history (MAPs), review of the available imaging, evaluation and examination of the patient, coordination of care with the medical staff and if applicable referring physicians, as well as creation of the medical record - Pain Location Right Lower Back Non-Pharmacological Interventions: Exercise, Heat, Home Exercise, Inactivity, Physical Therapy, Position/Reposition, Sitting, Stretching Pharmacological Interventions: Block, Epidural, PRN Medication, Scheduled Medication, Topical Medication PQRS Narrative: Smoking Status Never smoker Home Medications: Ambulatory Orders Thyroid,Pork [Benjamin Thyroid] 90 mg PO DAILY 07/08/14 L.acidoph,Paracasei, B.lactis [Probiotic] 1 cap PO DAILY 09/30/17 Acetaminophen Tab [Tylenol] 650 mg PO Q6HR PRN tab 05/09/18 Cholecalciferol [Vitamin D3 (25 Mcg = 1000 Iu)] 2,000 unit PO DAILY 05/02/19 Famotidine [Pepcid] 150 mg PO DAILY 11/27/19 DULoxetine HCL [Cymbalta] 30 mg PO HS 11/26/20 Turmeric Root Extract [Turmeric] 500 mg PO DAILY 11/26/20 Trimethoprim 100 mg PO DIRECTED #30 tablet 04/05/21 Gabapentin [Neurontin] 100 mg PO 10/04/22 Controlled Substance Measures - Controlled Substance Measures Is patient prescribed a controlled substance at discharge?: No
== END ==
LOC: PNWHC3 08:50
PROVIDERS: ATTEND Specialist
DX: M51.36 Other intervertebral disc degeneration, lumbar region (principal); Z88.5 Allergy status to narcotic agent; Z88.1 Allergy status to other antibiotic agents; Z88.2 Allergy status to sulfonamides; Z88.8 Allergy status to other drugs, medicaments and biological substances
CPT/HCPCS: 99211

== ENCOUNTER → 2022-10-13 | Outpatient (CLI) | payer MEDICARE ==
--- NOTE | 2022-10-13 14:48 | US ---
EXAMINATION TYPE: US transvaginal DATE OF EXAM: 10/13/2022 COMPARISON: NONE CLINICAL HISTORY: R10.2 PELVIC PAIN. Pain TECHNIQUE: Transvaginal (TV EXAM MEASUREMENTS: Uterus: 4.5 x 2.5 x cm Endometrial Stripe: .32 cm 1. Uterus: Anteverted Calcifications seen in cervix of doubtful clinical significance. 2. Endometrium: Fluid seen .27cm. 3. Right Ovary: Obscured by overlying bowel gas 4. Left Ovary: Obscured by overlying bowel gas 5. Bilateral Adnexa: wnl 6. Posterior cul-de-sac: wnl IMPRESSION: 1. Simple appearing fluid within the endometrial canal. 2. Both ovaries are nonvisualized due to overlying bowel gas.
== END | disposition home or self-care (01) ==
LOC: RADUSWWP 14:16
PROVIDERS: ATTEND Internal Medicine Geriatric Medicine
DX: R10.2 Pelvic and perineal pain (principal)
CPT/HCPCS: 76830

== ENCOUNTER → 2023-01-15 | Outpatient (CLI) | payer MEDICARE ==
--- NOTE | 2023-01-16 06:20 | MM ---
Reason for Exam: Screening (asymptomatic). Last screening mammogram was performed 12 month(s) ago. Patient History: Menarche at age 11. First Full-Term at age 27. Postmenopausal. Estrogen for 5 years from age 53 until age 58. Patient used Progesterone for 2 years. Hormonal Contraceptives for 10 years from age 18 until age 28. Benign Cyst Aspiration on the right side. Benign Cyst Aspiration on the left side. Benign Excisional Biopsy on the left side. 03/04/2015, Benign Cyst Aspiration on the left side. Maternal aunt had breast cancer, age 65. Risk Values: Linda 5 year model risk: 2.3%. NCI Lifetime model risk: 5.3%. Prior Study Comparison: 03/03/2021 Left Diagnostic Mammogram, [facility]. 09/02/2021 Left Diagnostic Mammogram, [facility]. 01/05/2022 Bilateral Screening Mammogram, [facility]. Tissue Density: There are scattered fibroglandular densities. Findings: Analyzed By CAD. Mammotome biopsy clip in the left breast is redemonstrated. There are a few scattered and grouped tiny benign-appearing round calcifications in the bilateral breasts redemonstrated. Benign-appearing bilateral axillary lymph nodes are redemonstrated. There is no suspicious new group of microcalcifications or new suspicious mass in either breast. Overall Assessment: Benign, BI-RAD 2 Management: Screening Mammogram of both breasts in 1 year. A clinical breast exam by your physician is recommended on an annual basis and results should be correlated with mammographic findings. Electronically signed and approved by: Gilles Coleman M.D.
== END | disposition home or self-care (01) ==
LOC: RADMAMWWP 11:11
PROVIDERS: ATTEND Surgery
DX: Z12.31 Encounter for screening mammogram for malignant neoplasm of breast (principal); Z80.3 Family history of malignant neoplasm of breast; Z78.0 Asymptomatic menopausal state
CPT/HCPCS: 77063; 77067

== ENCOUNTER → 2023-01-18 | Outpatient (CLI) | payer MEDICARE ==
[2023-01-18 10:53] VITALS: BP 134/79; PULSE 94; RESP 18; TEMP 98.2
--- NOTE | 2023-01-18 11:04 | P.PN ---
Subjective Progress Note Date: 01/18/23 Principal diagnosis: fibrocystic breast changes fibrocystic breast changes Anna is a 71-year-old white female who was presents for breast evaluation. She has a long history of fibrocystic breast disease and has had multiple cyst aspirated in the past. She has had a left breast open biopsy which was benign. And she has had a left breast aspiration by radiology where a clip was left approximately 4 years ago. All of these have been benign. She has however had tenderness in her left breast in the lateral aspect since the aspiration with the clip being left. She has no new lumps masses or nodules in her breasts. She has no nipple discharge or skin changes. She is not complaining of any trauma to her breast. She has no history of any infection of the breast. She had a bilateral screening mammogram and . This revealed an area of question in the left breast in the outer quadrant subareolar position and ultrasound was then performed of this area. The ultrasound confirmed a very small lesion approximately 5 mm at the site believed to the mammographic change. The recommendation as per radiology was for a stereotactic core biopsy. It was felt the lesion was too small to try to do an ultrasound-guided core biopsy. The mammogram and ultrasound were reviewed with multiple radiologist and ultimately the decision was made to do close surveillance. The patient has had a repeat bilateral mammogram performed on 4721. This was read by Dr. Shrestha and reviewed with Dr. Coleman. The findings are benign BIRADS 2 and repeat bilateral mammogram in 1 year is recommended. The patient did have questions last year regarding automated breast ultrasound, these questions were also addressed with radiology who did not feel that it was necessary. 01-18-23 Anna does not feel any new lumps masses or nodules of concern in either breast. She is not complaining of any nipple discharge or skin changes. 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 This is inferior to the breast as well as superior to the breast and extending into bilateral axillas. She follows with dermatology for this. The pain in her breast has not become worse. Family History: 1. maternal aunt: breast and uterine cancer 2. father: leukemia at 77 Hormonal history Menarche: 11 Pregnancies: 3, 2 children, one miscarriage, age of first live 27, breast- fed: Yes Menopause:46 BCP: 10 years hormones: Premarin cream twice a week Estrogen: 8 years Past Surgical History: 1. benign breast cyst 2. two cataracts 3. two foot surgeries (bone graft left toe) Past Medical History: 1. Scoliosis/back pain 2. Osteoarthritis 3. granuloma annulare 4. pain left calf and foot numb and pain with ambulation Social History: smoke: none alcohol: 2 times/month drugs: none - Constitutional Constitutional: Denies chills, Denies fever - EENT Comment: cataract surgery Eyes: denies blurred vision, denies pain Ears: deny: decreased hearing, tinnitus Ears, nose, mouth and throat: Denies headache, Denies sore throat - Breasts Breasts: bilateral: as per HPI - Cardiovascular Cardiovascular: Reports shortness of breath, Denies chest pain - Respiratory Respiratory: Reports cough - Gastrointestinal Gastrointestinal: Denies abdominal pain, Denies diarrhea, Denies nausea, Denies vomiting - Genitourinary (Female) Genitourinary: Denies dysuria, Denies hematuria - Menstruation Menstruation: Reports postmenopausal - Musculoskeletal Comment: back pain, osterpenia, osteoarthritis - Integumentary Comment: Granuloma annulare Integumentary: Reports rash, Denies pruritus - Neurological Neurological: Reports numbness, Reports weakness - Psychiatric Psychiatric: Reports anxiety - Endocrine Endocrine: Reports fatigue, Denies weight change - Hematologic/Lymphatic Comment: none - Allergic/Immunologic Comment: none Allergic/Immunologic: Reports as per HPI Objective - Vital Signs Vital signs: Intake & Output 01/17/23 01/18/23 01/18/23 18:59 06:59 18:59 Weight 65.771 kg - Constitutional General appearance: Present: cooperative - EENT Eyes: Present: EOMI ENT: Present: hearing grossly normal - Neck Neck: Present: normal ROM - Respiratory Respiratory: bilateral: CTA - Cardiovascular Rhythm: regular Heart sounds: normal: S1, S2 - Gastrointestinal General gastrointestinal: Present: soft - Integumentary Integumentary: Present: normal - Musculoskeletal Musculoskeletal: Present: gait normal - Psychiatric Psychiatric: Present: A&O x's 3, appropriate affect, intact judgment & insight - Additional findings Additional findings: Breast Exam: BRA: 38C inspection: bilateral grade 2 ptosis, granuloma annulare under both breast and superior to both breast palpation: right breast: multipositional exam fibrocystic changes no discrete dominant masses or nodules of concern Right axilla: No adenopathy of concern Left breast: Well-healed scar from prior lumpectomy/biopsy, multi positional exam fibrocystic changes no dominant masses or nodules of concern Left axilla: No adenopathy of concern Assessment and Plan Assessment: Impression: fibroystic breast changes bilateral mammogram 01-15-23 BIRAD 2 Plan: Repeat bilateral mammogram in 1 year, with appointment Patient will follow up sooner any questions or concerns CC: Dr. Damon Additional CC's: Michael Damon
== END ==
LOC: WWCWWP 10:32
PROVIDERS: ATTEND Surgery
DX: N60.12 Diffuse cystic mastopathy of left breast (principal); M19.90 Unspecified osteoarthritis, unspecified site; M41.9 Scoliosis, unspecified; Z80.3 Family history of malignant neoplasm of breast; Z88.8 Allergy status to other drugs, medicaments and biological substances; Z88.1 Allergy status to other antibiotic agents; Z88.5 Allergy status to narcotic agent; Z88.2 Allergy status to sulfonamides

== ENCOUNTER → 2023-03-15 | Outpatient (CLI) | payer MEDICARE ==
[2023-03-15 11:06] LABS: Basophils # (A) 0.06 X 10*3/uL (0.00-0.10); Basophils % (A) 0.8 %; Eosinophils # (A) 0.24 X 10*3/uL (0.04-0.35); Eosinophils % (A) 3.3 %; HCT 43.4 % (37.2-46.3); HGB 13.8 d/dL (12.0-15.0); Lymphocytes # (A) 2.84 X 10*3/uL (0.90-5.00); Lymphocytes % (A) 39.1 %; MCH 29.3 pg (27.0-32.0); MCHC 31.8 d/dL (32.0-37.0); MCV 92.1 FL (80.0-97.0); Monocytes # (A) 0.59 X 10*3/uL (0.20-1.00); Monocytes % (A) 8.1 %; NRBC Per 100 WBC 0 X 10*3/uL (0.00-0.01); Neutrophils # (A) 3.51 X 10*3/uL (1.80-7.70); Neutrophils % (A) 48.4 %; Platelet Count 289 X 10*3/uL (140-440); RBC 4.71 X 10*6/uL (4.10-5.20); RDW 12.5 % (11.5-14.5); WBC 7.26 X 10*3/uL (4.50-10.00)
[2023-03-15 11:44] LABS: BUN/Creat Ratio 23.89 Ratio (12.00-20.00); Blood Urea Nitrogen 21.5 mg/dL (9.0-27.0); Chol/HDL Ratio 3.01 Ratio; Glucose 89 mg/dL (70-110); LDL Cholesterol,Calculated 105.4 mg/dL (0.0-131.0)
[2023-03-15 11:45] LABS: ALT 34 U/L (8-44); AST 28 U/L (13-35); Albumin 4.6 d/dL (3.8-4.9); Alkaline Phosphatase 116 U/L (41-126); Calcium 9.9 mg/dL (8.7-10.3); Carbon Dioxide 27.9 mmol/L (21.6-31.8); Chloride 103 mmol/L (96-109); Globulin 2.7 d/dL (1.6-3.3); Potassium 4.3 mmol/L (3.5-5.5); Sodium 142 mmol/L (135-145); T4, Free (Free Thyroxine) 0.75 ng/dL (0.80-1.80); Total Bilirubin 0.4 mg/dL (0.3-1.2); Total Protein 7.3 d/dL (6.2-8.2)
== END | disposition home or self-care (01) ==
LOC: LABWHC1 07:52
PROVIDERS: ATTEND Internal Medicine Geriatric Medicine
DX: E03.9 Hypothyroidism, unspecified (principal); E78.5 Hyperlipidemia, unspecified; G62.9 Polyneuropathy, unspecified; R73.9 Hyperglycemia, unspecified
CPT/HCPCS: 36415; 80053; 80061; 83036; 84439; 84443; 84481; 85025

== ENCOUNTER → 2023-07-04 | Outpatient (CLI) | payer MEDICARE ==
[2023-07-04 09:58] VITALS: BP 137/94; PULSE 97; RESP 17; TEMP 98.2
--- NOTE | 2023-07-04 10:52 | P.HPOB ---
History of Present Illness H&P Date: 07/04/23 Chief Complaint: The patient is here for her routine gynecologic exam. This is a 73-year-old 012 with an LMP of 1994. The patient thinks she is having some vaginal prolapse. She states she has had a chronic cough since about January 2022 after having Covid. She has been treated and evaluated for this cough and most recently has seen Dr. Bruno, the forming roll operator, for this. With the coughing, she has noticed some pelvic pressure and has noticed a bulge at the vaginal opening. She states the bulge does not protrude through the opening. The bulge is not painful to touch. She has had occasional right groin pains and had a pelvic ultrasound on 10/13/2022. There is a small amount of endometrial fluid with a normal endometrial thickness. No adnexal masses were noted. She has had some issues with constipation. Review of Systems She is getting about 10 pounds over the past 2 years. Respiratory: Some coughing and wheezing as in the HPI. She denies cardiac problems. GI: Occasional constipation Past Medical History Past Medical History: GERD/Reflux, Osteoarthritis (OA), Skin Disorder, Thyroid Disorder Additional Past Medical History / Comment(s): granuloma annulare, hypothyroid, chronic back problems. Osteoporosis declining medications. diverticulitis. 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 History of Any Multi-Drug Resistant Organisms: None Reported Past Surgical History: Breast Surgery Additional Past Surgical History / Comment(s): D & C. left foot surgery. bilateral cateracts, left great toe implant removed and toe straightened 05-08-2018. Colonoscopy 2013(next after 10yr). Past Anesthesia/Blood Transfusion Reactions: Motion Sickness, Postoperative Nausea & Vomiting (PONV) Past Psychological History: No Psychological Hx Reported Smoking Status: Never smoker Past Alcohol Use History: Occasional (0-2 drinks per week.) Past Drug Use History: None Reported Additional History: She has been since 1970 and is sexually active. 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 - Past Family History Mother Additional Family Medical History / Comment(s): Cardiac pacemaker. Maternal aunt had breast cancer. A grandmother had gastric cancer. Father Family Medical History: Cancer Additional Family Medical History / Comment(s): leukemia Medications and Allergies Home Medications Medication Instructions Recorded Confirmed Type Thyroid,Pork [[place] Thyroid] 90 mg PO DAILY 07/08/14 07/04/23 History L.acidoph,Paracasei, B.lactis 1 cap PO DAILY 09/30/17 07/04/23 History [Probiotic] Acetaminophen Tab [Tylenol] 650 mg PO Q6HR PRN tab 05/09/18 07/04/23 Rx Cholecalciferol [Vitamin D3 (25 2,000 unit PO DAILY 05/02/19 07/04/23 History Mcg = 1000 Iu)] Famotidine [Pepcid] 150 mg PO DAILY 11/27/19 07/04/23 History Pregabalin [Lyrica] 50 mg PO DAILY 11/03/22 07/04/23 History Trimethoprim 100 mg PO DAILY PRN 11/03/22 07/04/23 History Calcium Carbonate [Calcium] 600 mg PO DAILY 01/18/23 07/04/23 History Ubidecarenone [Co Q-10] 30 mg PO DAILY 01/18/23 07/04/23 History Hyoscyamine Sulfate [Hyoscyamine 1 tab PO DIRECTED 07/04/23 07/04/23 History Sulfate SL] Sucralfate [Sucralfate Oral Susp] 1 gm PO DIRECTED PRN 07/04/23 07/04/23 History Allergies Allergy/AdvReac Type Severity Reaction Status Date / Time doxycycline Allergy Rash/Hives Unverified 07/04/23 09:22 lansoprazole [From Prevacid] Allergy Rash/Hives Verified 07/04/23 09:22 methylprednisolone Allergy Unknown Unverified 07/04/23 09:22 nitrofurantoin Allergy Anaphylaxis Verified 07/04/23 09:22 macrocrystalline [From Macrodantin] Sulfa (Sulfonamide Allergy Rash/Hives Verified 07/04/23 09:22 Antibiotics) codeine AdvReac Nausea Verified 07/04/23 09:22 levofloxacin [From Levaquin] AdvReac Unknown Verified 07/04/23 09:22 Exam Vital Signs Temp Pulse Resp BP Pulse Ox 07/04/23 09:50 98.2 F 97 17 137/94 98 Intake and Output 07/03/23 07/04/23 07/04/23 22:59 06:59 14:59 Other: Weight 69.853 kg Height 5 feet 4 inches, weight 154 pounds, BMI 26.4. This is a well-developed well-nourished white female who is alert and oriented times 3 in no acute distress. HEENT: Within normal limits. NECK: Supple without mass or thyromegaly. CHEST AND LUNGS: Clear to auscultation. HEART: Regular rate and rhythm. BREASTS: Refused by patient. Exam was done by Dr. Rodriguezrecently. AXILLARY EXAM: Negative for adenopathy. BACK: Negative for CVA tenderness. ABDOMEN: Soft, nontender, without palpable masses. PELVIC EXAM: Normal external genitalia with mild atrophy. Cervix and vagina appear normal with mild atrophy. There is no ulceration or excoriation of the vaginal mucosa. There is no unusual discharge. At rest there is a grade 1 cystocele and a grade 2 rectocele noted. There is minimal uterine prolapse.. With Valsalva there is a grade 2 cystocele and a grade 2-3 rectocele. The uterus is midposition, nongravid size and nontender. There are no palpable adnexal masses or tenderness. RECTAL EXAM: Rectovaginal exam is negative for mass or tenderness and is negative for occult blood. Rectal exam does confirm a rectocele with no evidence of enterocele. EXTREMITIES: Nontender. IMPRESSION: 1. 73-year-old menopausal female with recent pelvic pressure and mildly symptomatic prolapse in the vagina to the introitus with coughing. Grade 1-2 cystocele and grade 2-3 rectocele. 2. History of osteoporosis refusing medication or bone density testing. 3. Small amount of endometrial fluid by ultrasound done on 10/13/2022 with normal endometrial thickness. 4. Occasional right groin pains with no significant physical findings on exam today or by 10/13/2022 ultrasound. The differential diagnosis will include pulled groin muscles or possibly a small groin hernia. PLAN: 1. Pap smears have been discontinued. 2. Breast exam was refused by the patient since she recently had a breast exam done by Dr. Rodriguez and she will plan on continuing to do breast exams through her. 3. Mammogram was done on 01/15/2023 and was benign. 4. Repeat pelvic ultrasound in October to reevaluate the endometrial fluid. We will continue conservative management for this and do yearly ultrasound if it persists. 5. We have had a long discussion regarding pelvic prolapse. I recommended conservative management at this time. She will continue to be treated for her chronic cough which may make the prolapse worse over time. She will avoid holding urine or stool longer than necessary. She will also do negative Valsalva exercises when she is feeling pressure or noticing the bulge. We have discussed other options including surgical management and pessary use. 6. Information on pelvic prolapse was given to the patient. 7. She was advised to return in one year for her annual well woman exam and as needed.
== END ==
LOC: WWCWWP 09:16
PROVIDERS: ATTEND Obstetrics & Gynecology
DX: Z01.419 Encounter for gynecological examination (general) (routine) without abnormal findings (principal); E03.9 Hypothyroidism, unspecified; K21.9 Gastro-esophageal reflux disease without esophagitis; R10.30 Lower abdominal pain, unspecified; M19.90 Unspecified osteoarthritis, unspecified site; M81.0 Age-related osteoporosis without current pathological fracture; N81.10 Cystocele, unspecified; N81.6 Rectocele; Z79.890 Hormone replacement therapy; Z80.3 Family history of malignant neoplasm of breast; Z88.1 Allergy status to other antibiotic agents; Z88.2 Allergy status to sulfonamides; Z88.5 Allergy status to narcotic agent; Z78.0 Asymptomatic menopausal state; Z88.8 Allergy status to other drugs, medicaments and biological substances; Z88.4 Allergy status to anesthetic agent

== ENCOUNTER → 2023-08-29 | Outpatient (CLI) | payer MEDICARE ==
--- NOTE | 2023-08-30 07:37 | CT ---
EXAMINATION TYPE: CT chest wo con DATE OF EXAM: 08/29/2023 COMPARISON: None HISTORY: Chronic cough x 1.[address] DLP: 775.6 mGycm, Automated exposure control for dose reduction was used. CONTRAST: None TECHNIQUE: Axial images were obtained at 1 mm thick sections at 10 mm intervals. This will limit po rtions of the examination which may not be visualized within the [id number]. Images were obtained in the prone and supine views. FINDINGS: Portion of the thyroid visualized is normal. No suspicious lung nodules or focal infiltrat es are present. Some mild bronchiectasis is present. Scarring is noted at the left apex. There is a punctate 0.2 cm nodule within the periphery of the anterior right upper lobe. Series 4 image 82. Similar punctate den sity measuring 0.2 cm may be in the anterior lateral left upper lung field. Series 4 image 82. No enlarged mediastinal or hilar adenopathy is evident. The ascending aorta diameter at the level o f the main pulmonary artery is 3.6 cm. The main pulmonary artery diameter at the bifurcation is 3.[address] sections are obtained through the upper abdomen. Abdomen is essentially unremarkable. Ther e is a small hiatal hernia present. IMPRESSION: 1. Mild bronchiectasis. 2. Couple of punctate nodules. Follow-up CT chest in one year can be performed.
== END | disposition home or self-care (01) ==
LOC: RADCTMAIN 15:24
PROVIDERS: ATTEND Internal Medicine Critical Care Medicine
DX: J84.9 Interstitial pulmonary disease, unspecified (principal); J47.9 Bronchiectasis, uncomplicated; R91.8 Other nonspecific abnormal finding of lung field
CPT/HCPCS: 71250

== ENCOUNTER 2023-09-19 13:00 | Outpatient (CLI) | payer MEDICARE ==
--- NOTE | 2023-10-03 02:26 | SLS ---
SLEEP STUDY This is a home sleep study. HISTORY OF PRESENT ILLNESS: This patient is 73, suspect to have JIM and a home sleep study was ordered. No major hypersomnia or sleepiness. Brockwell score is at 4. Known to have hyperlipidemia, hypothyroidism, and previous history of COVID-19 infection. PERTINENT PHYSICAL FINDINGS: The patient has a body mass index of 25.9. Height is 5 feet 4 inches, weight is 151. TECHNICAL DESCRIPTION: This is a type 3 home sleep study. The [employer] system was used to complete this study. The patient's total recording duration was 7 hours and 58 minutes. The recording started at 10:39 p.m., ended at 6:38 a.m. This was an adequate study as the patient had a total of 7 hours and 45 minutes of flow evaluation and 7 hours and 44 minutes of oxygen saturation evaluation. RESULTS: The respiratory count showed a total of 4 obstructive apneas and 55 obstructive hypopneas. The resulting AHI was 7.6. OXYGENATION ANALYSIS: The patient's baseline pulse ox was 96%. Average pulse ox during sleep was 89%. Lowest pulse ox 77% and the patient spent approximately 2 hours and 35 minutes of sleep time below pulse ox of 89%. CARDIAC SUMMARY: Average heart rate was 79, minimum heart rate 65, maximum heart rate was 194. IMPRESSION: 1. Mild obstructive sleep apnea with an AHI of 7.6. 2. Nocturnal oxygen desaturation with a minimum pulse ox of 77%. 3. Brockwell score of 7 without major hypersomnia. 4. Chronic cough. 5. History of COVID-19 infection. 6. Acid reflux. 7. Hypothyroidism. 8. Hyperlipidemia. PLAN: The patient's sleep apnea is mild. Nevertheless, she is encountering some nocturnal oxygen desaturation. Note that she does have some baseline hypoxemia. I would suggest optimizing the pulmonary status and improving her daytime oxygenation. CPAP therapy will be of minimal benefit for this patient based on the mild nature of obstructive sleep apnea. I will suggest having further discussion with Dr. Bruno regarding treatment options. Not a big advocate for CPAP therapy in this patient based on the mild disease severity. MMODL / SHARRIN: [id number] /
== END 2023-09-20 14:00 | disposition home or self-care (01) ==
LOC: 3 N SLEEP 13:00
PROVIDERS: ATTEND Internal Medicine Critical Care Medicine
DX: G47.33 Obstructive sleep apnea (adult) (pediatric) (principal); G47.36 Sleep related hypoventilation in conditions classified elsewhere; G47.10 Hypersomnia, unspecified; R05.9 Cough, unspecified; K21.9 Gastro-esophageal reflux disease without esophagitis; E03.9 Hypothyroidism, unspecified; E78.5 Hyperlipidemia, unspecified; Z86.16 Personal history of COVID-19; Z88.5 Allergy status to narcotic agent; Z88.1 Allergy status to other antibiotic agents; Z88.8 Allergy status to other drugs, medicaments and biological substances; Z88.2 Allergy status to sulfonamides; Z79.890 Hormone replacement therapy

== ENCOUNTER → 2023-09-20 | Outpatient (CLI) | payer MEDICARE ==
--- NOTE | 2023-09-20 11:36 | XR ---
EXAMINATION TYPE: XR sacrum coccyx DATE OF EXAM: 09/20/2023 COMPARISON: NONE HISTORY: Pain Three views are submitted. Sacrum is intact. Mild osteopenia. Degenerative change lower lumbar spine . Mild hypertrophic arthropathy of the hip. Mild hypertrophic arthropathy of the bilateral SI joint. No erosive changes. There is facet arthropathy and multilevel degenerative change lower lumbar spine. Suspect that there is foraminal encroachment.. Coccyx appears to be intact. Visualized pelvic stru ctures intact. IMPRESSION: 1. No acute fracture. Mild SI joint arthropathy.
== END | disposition home or self-care (01) ==
LOC: RADXRMAIN 09:10
PROVIDERS: ATTEND Internal Medicine Geriatric Medicine
DX: M46.1 Sacroiliitis, not elsewhere classified (principal)
CPT/HCPCS: 72220

== ENCOUNTER → 2023-10-24 | Outpatient (CLI) | payer SELFPAY | END | disposition home or self-care (01) | LOC: LABWHC1 08:45 | PROVIDERS: ATTEND Pathology Anatomic Pathology & Clinical Pathology | DX: Z53.9 Procedure and treatment not carried out, unspecified reason (principal) ==

== ENCOUNTER → 2024-01-17 | Outpatient (CLI) | payer MEDICARE ==
--- NOTE | 2024-01-17 20:07 | MM ---
Reason for Exam: Screening (asymptomatic). Last screening mammogram was performed 12 month(s) ago. Patient History: Menarche at age 11. First Full-Term at age 27. Postmenopausal. Estrogen for 5 years from age 53 until age 58. Patient used Progesterone for 2 years. Hormonal Contraceptives for 10 years from age 18 until age 28. Benign Cyst Aspiration on the right side. Benign Cyst Aspiration on the left side. Benign Excisional Biopsy on the left side. 03/04/2015, Benign Cyst Aspiration on the left side. Maternal aunt had breast cancer, age 65. Risk Values: Linda 5 year model risk: 2.3%. NCI Lifetime model risk: 5.0%. Prior Study Comparison: 09/02/2021 Left Diagnostic Mammogram, [facility]. 01/05/2022 Bilateral Screening Mammogram, [facility]. 01/15/2023 Bilateral MG 3D screening mammo w/cad, [facility]. Tissue Density: There are scattered areas of fibroglandular density. Findings: Analyzed By CAD. The pattern is symmetrical. Core marker is in the left breast scattered benign round calcifications are present. Benign vascular calcifications present right No suspicious groups of microcalcifications, spiculated or lobular masses, architectural distortion or other secondary signs of malignancy are mammographically apparent. Overall Assessment: Benign, BI-RAD 2 Management: Screening Mammogram of both breasts in 1 year. A negative mammogram report should not preclude additional follow up of suspicious palpable abnormalities. Patient should continue monthly self breast exam. A clinical breast exam by your physician is recommended on an annual basis and results should be correlated with mammographic findings. Note on Linda scores and lifetime risk: 1. A Linda score greater than 3% is considered moderate risk. If this is the case, consider specialist referral to assess eligibility for a risk reducing agent. 2. If overall lifetime risk for the development of breast cancer is 20% or higher, the patient may qualify for future screening with alternating mammogram and breast MRI. Electronically signed and approved by: Parmjit Woo D.O. Radiologis
== END | disposition home or self-care (01) ==
LOC: RADMAMWWP 11:14
PROVIDERS: ATTEND Surgery
DX: Z12.31 Encounter for screening mammogram for malignant neoplasm of breast (principal); Z78.0 Asymptomatic menopausal state; Z80.3 Family history of malignant neoplasm of breast
CPT/HCPCS: 77063; 77067

== ENCOUNTER → 2024-01-24 | Outpatient (CLI) | payer MEDICARE ==
--- NOTE | 2024-01-24 14:00 | P.PN ---
Subjective Progress Note Date: 01/24/24 Principal diagnosis: fibrocystic breast changes 01-13-22 fibrocystic breast changes Anna is a 71-year-old white female who was presents for breast evaluation. She has a long history of fibrocystic breast disease and has had multiple cyst aspirated in the past. She has had a left breast open biopsy which was benign. And she has had a left breast aspiration by radiology where a clip was left approximately 5 years ago. All of these have been benign. She has however had tenderness in her left breast in the lateral aspect since the aspiration with the clip being left. She has no new lumps masses or nodules in her breasts. She has no nipple discharge or skin changes. She is not complaining of any trauma to her breast. She has no history of any infection of the breast. She had a bilateral screening mammogram and . This revealed an area of question in the left breast in the outer quadrant subareolar position and ultrasound was then performed of this area. The ultrasound confirmed a very small lesion approximately 5 mm at the site believed to the mammographic change. The recommendation as per radiology was for a stereotactic core biopsy. It was felt the lesion was too small to try to do an ultrasound-guided core biopsy. The mammogram and ultrasound were reviewed with multiple radiologist and ultimately the decision was made to do close surveillance. The patient has had a repeat bilateral mammogram performed on 4721. This was read by Dr. Shrestha and reviewed with Dr. Coleman. The findings are benign BIRADS 2 and repeat bilateral mammogram in 1 year is recommended. The patient did have questions last year regarding automated breast ultrasound, these questions were also addressed with radiology who did not feel that it was necessary. 01-18-23 Anna does not feel any new lumps masses or nodules of concern in either breast. She is not complaining of any nipple discharge or skin changes. 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 This is inferior to the breast as well as superior to the breast and extending into bilateral axillas. She follows with dermatology for this. The pain in her breast has not become worse. 01-24-24 Bilateral mammogram 01-17-24 BIRAD 2, personally reviewed She is not complaining of any new lumps masses or nodules of concern in either breast. She continues to have tenderness in the lateral aspect of the left breast since a clip was placed after a biopsy. Family History: 1. maternal aunt: breast and uterine cancer 2. father: leukemia at 77 Hormonal history Menarche: 11 Pregnancies: 3, 2 children, one miscarriage, age of first live 27, breast- fed: Yes Menopause:46 BCP: 10 years hormones: Premarin cream twice a week Estrogen: 8 years Past Surgical History: 1. benign breast biopsy 2. two cataracts 3. two foot surgeries (bone graft left toe) 4. SCC left leg Past Medical History: 1. Scoliosis/back pain 2. Osteoarthritis 3. granuloma annulare 4. pain left calf and foot numb and pain with ambulation 5. chronic hoarness/desist since COVID/follows with Dr. Smith 6. uterine prolapse 7. chronic bronchiestis Social History: smoke: none alcohol: 2 times/month drugs: none - Constitutional Constitutional: Denies chills, Denies fever - EENT Comment: cataract surgery Eyes: denies blurred vision, denies pain Ears: deny: decreased hearing, tinnitus Ears, nose, mouth and throat: Denies headache, Denies sore throat - Breasts Breasts: bilateral: as per HPI - Cardiovascular Cardiovascular: Reports shortness of breath, Denies chest pain - Respiratory Respiratory: Reports cough, bronchectasis - Gastrointestinal Gastrointestinal: Denies abdominal pain, Denies diarrhea, Denies nausea, Denies vomiting - Genitourinary (Female) Genitourinary: Denies dysuria, Denies hematuria - Menstruation Menstruation: Reports postmenopausal - Musculoskeletal Comment: back pain, osterpenia, osteoarthritis - Integumentary Comment: Granuloma annulare Integumentary: Reports rash, Denies pruritus - Neurological Neurological: Reports numbness, Reports weakness - Psychiatric Psychiatric: Reports anxiety - Endocrine Endocrine: Reports fatigue, Denies weight change - Hematologic/Lymphatic Comment: none - Allergic/Immunologic Comment: none Allergic/Immunologic: Reports as per HPI Objective - Constitutional General appearance: Present: cooperative - EENT Eyes: Present: EOMI ENT: Present: hearing grossly normal - Neck Neck: Present: normal ROM - Respiratory Respiratory: bilateral: CTA - Cardiovascular Rhythm: regular Heart sounds: normal: S1, S2 - Gastrointestinal General gastrointestinal: Present: soft - Integumentary Integumentary: Present: normal turgor - Musculoskeletal Musculoskeletal: Present: gait normal - Psychiatric Psychiatric: Present: A&O x's 3, appropriate affect, intact judgment & insight - Additional findings Additional findings: Breast Exam: BRA: 38C inspection: bilateral grade 2 ptosis, granuloma annulare under both breast and superior to both breast resolved on methotrexate palpation: right breast: multipositional exam fibrocystic changes no discrete dominant masses or nodules of concern Right axilla: No adenopathy of concern Left breast: Well-healed scar from prior lumpectomy/biopsy, multi positional exam fibrocystic changes no dominant masses or nodules of concern Left axilla: No adenopathy of concern Assessment and Plan Assessment: Impression: fibroystic breast changes bilateral mammogram 01-15-23 BIRAD 2 Plan: Repeat bilateral mammogram in 1 year, with appointment Patient will follow up sooner any questions or concerns CC: Dr. Damon
[2024-01-24 14:43] VITALS: BP 132/94; PULSE 98; RESP 17; TEMP 97.8
== END ==
LOC: WWCWWP 13:36
PROVIDERS: ATTEND Surgery
DX: Z12.31 Encounter for screening mammogram for malignant neoplasm of breast (principal); R92.8 Other abnormal and inconclusive findings on diagnostic imaging of breast; N60.11 Diffuse cystic mastopathy of right breast; N60.12 Diffuse cystic mastopathy of left breast; Z88.1 Allergy status to other antibiotic agents; Z88.8 Allergy status to other drugs, medicaments and biological substances; Z88.6 Allergy status to analgesic agent; Z88.5 Allergy status to narcotic agent; Z88.2 Allergy status to sulfonamides

== ENCOUNTER → 2024-02-15 | Outpatient (CLI) | payer MEDICARE ==
[2024-02-15 10:19] LABS: Basophils # (A) 0.04 X 10*3/uL (0.00-0.10); Basophils % (A) 0.8 %; Eosinophils # (A) 0.18 X 10*3/uL (0.04-0.35); Eosinophils % (A) 3.4 %; HCT 42.8 % (37.2-46.3); HGB 13.7 g/dL (12.0-15.0); Lymphocytes % (A) 34.1 %; MCV 93.9 FL (80.0-97.0); Mean Platelet Volume 10.3 FL (9.5-12.2); Monocytes # (A) 0.53 X 10*3/uL (0.20-1.00); NRBC Per 100 WBC 0 X 10*3/uL (0.00-0.01); Neutrophils # (A) 2.72 X 10*3/uL (1.80-7.70); Neutrophils % (A) 51.5 %; Platelet Count 316 X 10*3/uL (140-440); RBC 4.56 X 10*6/uL (4.10-5.20); RDW 13.9 % (11.5-14.5); WBC 5.28 X 10*3/uL (4.50-10.00)
[2024-02-15 10:53] LABS: ALT 38 U/L (8-44); AST 42 U/L (13-35); Albumin 4.4 g/dL (3.8-4.9); Albumin/Globulin Ratio 1.76 Ratio (1.60-3.17); Alkaline Phosphatase 106 U/L (41-126); BUN/Creat Ratio 20.12 Ratio (12.00-20.00); Blood Urea Nitrogen 16.1 mg/dL (9.0-27.0); C Reactive Protein <0.30 mg/dL (0.00-0.80); Calcium 10.1 mg/dL (8.7-10.3); Carbon Dioxide 23.3 mmol/L (21.6-31.8); Chloride 103 mmol/L (96-109); Chol/HDL Ratio 3.84 Ratio; Globulin 2.5 g/dL (1.6-3.3); Glucose 95 mg/dL (70-110); LDL Cholesterol,Calculated 147.4 mg/dL (0.0-131.0); Potassium 4.5 mmol/L (3.5-5.5); Rheumatoid Factor, Qnt <15 IU/mL (0-15); Sodium 139 mmol/L (135-145); T4, Free (Free Thyroxine) 1.17 ng/dL (0.80-1.80); Total Bilirubin 0.5 mg/dL (0.3-1.2); Total Protein 6.9 g/dL (6.2-8.2)
[2024-02-15 12:00] LABS: Erythrocyte Sedimentation Rate 22 mm/Hr (0-30)
== END | disposition home or self-care (01) ==
LOC: LABWHC1 07:42
PROVIDERS: ATTEND Internal Medicine Critical Care Medicine
DX: J47.9 Bronchiectasis, uncomplicated (principal); L92.0 Granuloma annulare; L53.8 Other specified erythematous conditions; J44.9 Chronic obstructive pulmonary disease, unspecified; E78.5 Hyperlipidemia, unspecified; E03.9 Hypothyroidism, unspecified; R73.9 Hyperglycemia, unspecified
CPT/HCPCS: 36415; 80053; 80061; 82784; 83036; 84439; 84443; 85025; 85652; 86038; 86140; 86431

== ENCOUNTER → 2024-02-19 | Outpatient (CLI) | payer MEDICARE ==
--- NOTE | 2024-02-19 22:42 | CT ---
EXAMINATION TYPE: CT abdomen pelvis w con CT DLP: 1019 mGycm, Automated exposure control for dose reduction was used. DATE OF EXAM: 02/19/2024 1:10 PM COMPARISON: CT abdomen pelvis most recent from 05/02/2019 CLINICAL INDICATION:Female, 73 years old with history of R10.2 PELVIC PAIN R10.31 RLQ ABD PAIN; RT si de lower pelvic pain x1 year TECHNIQUE: Axial CT of the abdomen and pelvis. Sagittal and coronal reformats were created on a [employer] workstation. Contrast used:100ml mL of Isovue 300 with IV Contrast, (none if empty) Oral contrast used: with Oral Contrast (none if empty) FINDINGS: LOWER CHEST: Unremarkable ABDOMEN LIVER: Unremarkable GALLBLADDER AND BILE DUCTS: Unremarkable. PANCREAS: Unremarkable. SPLEEN: Unremarkable. A splenial is present in the left upper quadrant. ADRENAL GLANDS: Unremarkable. KIDNEYS AND URETERS: No evidence of hydronephrosis or renal calculus. The ureters are unremarkable. Subcentimeter left renal cyst. PELVIS BLADDER: Unremarkable REPRODUCTIVE: There is slight thickening of the endometrium which measures approximately 9 mm. ABDOMEN & PELVIS STOMACH AND BOWEL: Stomach and duodenum are unremarkable. Scattered colonic diverticula are identifie d. The appendix is unremarkable No evidence of bowel obstruction. PERITONEUM/RETROPERITONEUM: No evidence of pneumoperitoneum or free fluid. VASCULATURE: Mild atherosclerotic calcifications are present throughout the abdominal aorta and its b ranches. No evidence of aortic aneurysm. MUSCULOSKELETAL: Levocurvature of the lumbar spine. Moderate multilevel degenerative changes of the l umbar spine are appreciated. LYMPH NODES: No gross evidence for lymphadenopathy. SOFT TISSUE/ABDOMINAL WALL: Unremarkable IMPRESSION: 1. Mildly thickened endometrium for the patient's given age. Recommend further evaluation with dedic ated pelvic ultrasound. 2. Colonic diverticulosis.
== END | disposition home or self-care (01) ==
LOC: RADCTMAIN 11:05
PROVIDERS: ATTEND Obstetrics & Gynecology Obstetrics
DX: K57.30 Diverticulosis of large intestine without perforation or abscess without bleeding (principal); K59.00 Constipation, unspecified; R93.89 Abnormal findings on diagnostic imaging of other specified body structures; Z78.0 Asymptomatic menopausal state
CPT/HCPCS: 74177; Q9967

== ENCOUNTER → 2024-12-04 | Outpatient (CLI) | payer MEDICARE ==
[2024-12-04 11:18] VITALS: BP 121/85; PULSE 83; RESP 16; TEMP 96.8
--- NOTE | 2024-12-04 13:48 | P.PAINPG ---
PQRS Measure Charge Sheet Comment: HISTORY OF PRESENT ILLNESS: 72 yr old female presents today w severe and chronic LBP secondary to spondylosis, levoconvex rotoscoliosis and facet arthropathy without myelopathy for evaluation s/p R Lateral Femoral Cutaneous Nerve Block #1. Pt states she experienced 70 % pain relief x 1.5 yrs s/p procedure. Pt states pain level is at 9 /10 in intensity, constant, localized in the lower lumbar spine, sharp in character w shooting pain towards the R hip and RLE. Pain is provoked by laying on her R side and lifting. Pain is alleviated by PT at home by her friend, home exercise twice daily x 3 wks, massage therapy 1-2 times per week 2 mo ago, heat, medications, topicals, repositioning and rest. Interventional procedures include R Lateral Femoral Cutaneous Nerve Block x1 (11/23), R RFA L4-L5/ L5-S1 (07/23), L SI (08/24) Medications include Neurontin, Cymbalta, Tyl REVIEW OF ORGAN SYSTEMS: CONSTITUTIONAL: No fevers or chills. No recent weight loss. NEUROLOGICAL: + numbness and tingling along the distal extremities. No seizure disorders or headaches. MUSCULOSKELETAL: + pain PSYCHIATRIC: Denies current depression or suicidal thoughts. Physical Examinations : Constitutional : Cooperative , not in acute distress . Neurologic : Cranial nerve II to XII intact. No focal neurological deficits. Psychiatric : alert & oriented x 3. Matching mood & appropriate affect. Judgment & insight intact. Musculoskeletal : Cervical Spine Motor strength in the deltoid and biceps: Normal right side. Normal Left side Motor strength biceps and the wrist extensors: Normal right side . Normal left side Motor strength in the triceps muscle: Normal right side. Normal left side Deep tendon reflexes: Normal at the biceps. Normal at Brachioradialis. Normal at triceps Vertebral body tenderness to deep palpation over Cervical facet loading test: positive bilaterally Spurling test: positive bilaterally Neck distraction test: positive bilaterally Ev sign: positive bilaterally Lumbar spine: RLE pain w eversion Motor strength lower extremities ,thigh and legs 5/5 Right side , 5/5 Left side Deep tendon reflexes : Normal Knee Jerk. Normal Ankle Jerk Vertebral body tenderness over Lumbar facet Loading Test: positive Right / positive Left Range of motion of the lumbar spine Flexion 30 degrees, extension 10 degrees Straight Leg Raise test: Left/ Right positive at degree Chandler test: positive right / positive left. Severe tenderness over the Sacroiliac joint on the Right / Left sides Gaenslen test: positive bilaterally Seated flexion test: positive bilaterally. Sacral spine : Severe tenderness over the Sacroiliac joint: right side / left side Range of motion: Flexion of the lumbar spine <60 degrees Range of motion: Extension of the lumbar spine <20 degrees Gaenslen's Test positive Zach's Test positive Chandler test: positive right side / left side Thigh Thrust Test Sacral Thrust Test Imaging: MRI without contrast of the lumbar spine from 11/07/2020 reviewed MRI without contrast of the right hip from 08/19/22 reviewed X ray lumbar spine from 11/25 reviewed Assessment/ Plan : Lumbar radiculopathy, Coccygeal injury Recommendation of MRI non contrast lumbosacral spine S90131/ M16.9. All questions answered. I have spent greater than 30 minutes on patient care today. Dr Mercedes was available by phone for the evaluation of this patient. The time was used to review the medical records including relevant urine studies and Prescription history (MAPs), review of the available imaging, evaluation and examination of the patient, coordination of care with the medical staff and if applicable referring physicians, as well as creation of the medical record - Pain Location Bilateral Lower Back Non-Pharmacological Interventions: Heat, Ice, Inactivity, Physical Therapy, Position/Reposition, Sitting Pharmacological Interventions: Block, PRN Medication, Topical Medication PQRS Narrative: Smoking Status Never smoker Hx Alcohol Use (MH) Yes: SOCIALLY Home Medications: Ambulatory Orders Thyroid,Pork [[place] Thyroid] 90 mg PO DAILY 07/08/14 L.acidoph,Paracasei, B.lactis [Probiotic] 1 cap PO DAILY 09/30/17 Trimethoprim 100 mg PO DAILY PRN 11/03/22 Calcium Carbonate [Calcium] 600 mg PO DAILY 01/18/23 Ubidecarenone [Co Q-10] 30 mg PO DAILY 01/18/23 Hyoscyamine Sulfate [Hyoscyamine Sulfate SL] 1 tab PO DIRECTED 07/04/23 Sucralfate [Sucralfate Oral Susp] 1 gm PO DIRECTED PRN 07/04/23 Acetylcysteine [Nac] 1 cap PO DAILY 01/24/24 Budesonide/Formoterol Fumarate [Breyna 160-4.5 Mcg Inhaler] 1 puff INHALATION DAILY 01/24/24 Cyanocobalamin [Vitamin B-12] 500 mg PO DAILY 01/24/24 DULoxetine HCL [Cymbalta] 20 mg PO DAILY 01/24/24 Estradiol Cream [Estrace Cream 0.01%] 1 applic VAGINAL DIRECTED 01/24/24 Magnesium 200 mg PO DAILY 01/24/24 Montelukast [Singulair] 10 mg PO DAILY 01/24/24 Multivitamin [Multivitamins Adult Gummies] 1 tab PO DAILY 01/24/24 Pravastatin Sodium [Pravachol] 20 mg PO DAILY 01/24/24 Vitamin E Acetate [Vitamin E] 1 cap PO DAILY 01/24/24 metHOTREXate sodium [Methotrexate] 2.5 mg PO WEEKLY 01/24/24 diazePAM [Valium] 5 mg PO DAILY 1 Days #2 tab 12/04/24 Controlled Substance Measures - Controlled Substance Measures Is patient prescribed a controlled substance at discharge?: Yes When asked, does pt state using other controlled substances?: No If prescribed controlled substance>3 days was MAPS reviewed?: Prescribed <3 Days
== END ==
LOC: PNWHC3 10:52
PROVIDERS: ATTEND Specialist
DX: M54.16 Radiculopathy, lumbar region (principal); S39.92XA Unspecified injury of lower back, initial encounter; Y99.9 Unspecified external cause status; Z88.1 Allergy status to other antibiotic agents; Z88.8 Allergy status to other drugs, medicaments and biological substances; Z88.5 Allergy status to narcotic agent
CPT/HCPCS: 99211

== ENCOUNTER → 2025-01-08 | Outpatient (CLI) | payer MEDICARE ==
[2025-01-08 12:15] VITALS: BP 138/78; PULSE 76; RESP 16
--- NOTE | 2025-01-08 15:47 | P.PAINPG ---
PQRS Measure Charge Sheet Comment: HISTORY OF PRESENT ILLNESS: A 74 yr old female presents today w severe and chronic LBP secondary to spondylosis, levoconvex rotoscoliosis and facet arthropathy without myelopathy for evaluation. Pt states pain level is at 6 /10 in intensity, constant, localized in the lower lumbar spine, sharp in character w shooting pain towards the LLE. Pain is provoked by laying on her R side and lifting. Pain is alleviated by at home massage therapy 1-2 times weekly since Oct 2024, physician guided home exercise twice daily x since Nov 2024, heat, medications, topicals, use of a cane for ambulatory assistance, repositioning and rest. Interventional procedures include R Lateral Femoral Cutaneous Nerve Block x1 ( 11/23), R RFA L4-L5/ L5-S1 (07/23), L SI (08/24) Medications include Neurontin, Cymbalta, Tyl, Aleve REVIEW OF ORGAN SYSTEMS: CONSTITUTIONAL: No fevers or chills. No recent weight loss. NEUROLOGICAL: + numbness and tingling along the distal extremities. No seizure disorders or headaches. MUSCULOSKELETAL: + pain PSYCHIATRIC: Denies current depression or suicidal thoughts. Physical Examinations : Constitutional : Cooperative , not in acute distress . Neurologic : Cranial nerve II to XII intact. No focal neurological deficits. Psychiatric : alert & oriented x 3. Matching mood & appropriate affect. Judgment & insight intact. Musculoskeletal : Cervical Spine Motor strength in the deltoid and biceps: Normal right side. Normal Left side Motor strength biceps and the wrist extensors: Normal right side . Normal left side Motor strength in the triceps muscle: Normal right side. Normal left side Deep tendon reflexes: Normal at the biceps. Normal at Brachioradialis. Normal at triceps Vertebral body tenderness to deep palpation over Cervical facet loading test: positive bilaterally Spurling test: positive bilaterally Neck distraction test: positive bilaterally Ev sign: positive bilaterally Lumbar spine: RLE pain w eversion Motor strength lower extremities ,thigh and legs 5/5 Right side , 5/5 Left side Deep tendon reflexes : Normal Knee Jerk. Normal Ankle Jerk Vertebral body tenderness over L5 Lumbar facet Loading Test: positive Right / positive Left Range of motion of the lumbar spine Flexion 30 degrees, extension 10 degrees Straight Leg Raise test: Left> Right positive at <30 degrees Chandler test: positive right / positive left. Severe tenderness over the Sacroiliac joint on the Right / Left sides Rochellelen test: positive bilaterally Seated flexion test: positive bilaterally. Sacral spine : Severe tenderness over the Sacroiliac joint: right side / left side Range of motion: Flexion of the lumbar spine <60 degrees Range of motion: Extension of the lumbar spine <20 degrees Gaenslen's Test positive Zach's Test positive Chandler test: positive right side / left side Thigh Thrust Test Sacral Thrust Test Imaging: MRI without contrast of the lumbar spine from 11/07/2020 reviewed MRI without contrast of the right hip from 08/19/22 reviewed X ray lumbar spine from 11/25 reviewed MRI non contrast lumbar spine from reviewed Assessment/ Plan : Lumbar radiculopathy, Coccygeal injury Recommendation of BELLA L5-S1 #1. Risks, benefits of procedure discussed and patient verbalized understanding. Protocol for discontinuation/continuation of medication surrounding procedure discussed. All questions answered. I have spent greater than 30 minutes on patient care today. Dr Mercedes was available by phone for the evaluation of this patient. The time was used to review the medical records including relevant urine studies and Prescription history (MAPs), review of the available imaging, evaluation and examination of the patient, coordination of care with the medical staff and if applicable referring physicians, as well as creation of the medical record PQRS Narrative: Smoking Status Never smoker Hx Alcohol Use (MH) Yes: SOCIALLY Home Medications: Ambulatory Orders Thyroid,Pork [[place] Thyroid] 90 mg PO DAILY 07/08/14 L.acidoph,Paracasei, B.lactis [Probiotic] 1 cap PO DAILY 09/30/17 Trimethoprim 100 mg PO DAILY PRN 11/03/22 Calcium Carbonate [Calcium] 600 mg PO DAILY 01/18/23 Ubidecarenone [Co Q-10] 30 mg PO DAILY 01/18/23 Hyoscyamine Sulfate [Hyoscyamine Sulfate SL] 1 tab PO DIRECTED 07/04/23 Sucralfate [Sucralfate Oral Susp] 1 gm PO DIRECTED PRN 07/04/23 Acetylcysteine [Nac] 1 cap PO DAILY 01/24/24 Budesonide/Formoterol Fumarate [Breyna 160-4.5 Mcg Inhaler] 1 puff INHALATION DAILY 01/24/24 Cyanocobalamin [Vitamin B-12] 500 mg PO DAILY 01/24/24 DULoxetine HCL [Cymbalta] 20 mg PO DAILY 01/24/24 Estradiol Cream [Estrace Cream 0.01%] 1 applic VAGINAL DIRECTED 01/24/24 Magnesium 200 mg PO DAILY 01/24/24 Montelukast [Singulair] 10 mg PO DAILY 01/24/24 Multivitamin [Multivitamins Adult Gummies] 1 tab PO DAILY 01/24/24 Pravastatin Sodium [Pravachol] 20 mg PO DAILY 01/24/24 Vitamin E Acetate [Vitamin E] 1 cap PO DAILY 01/24/24 metHOTREXate sodium [Methotrexate] 2.5 mg PO WEEKLY 01/24/24 diazePAM [Valium] 5 mg PO DAILY 1 Days #2 tab 12/04/24 LORazepam 1 mg PO DAILY 1 Days #2 tab 01/08/25 Controlled Substance Measures - Controlled Substance Measures Is patient prescribed a controlled substance at discharge?: Yes When asked, does pt state using other controlled substances?: Yes If prescribed controlled substance>3 days was MAPS reviewed?: Prescribed <3 Days
== END ==
LOC: PNWHC3 11:07
PROVIDERS: ATTEND Specialist
DX: S39.92XA Unspecified injury of lower back, initial encounter (principal); M54.16 Radiculopathy, lumbar region; Z88.5 Allergy status to narcotic agent; Z88.2 Allergy status to sulfonamides; Z88.1 Allergy status to other antibiotic agents; Z88.8 Allergy status to other drugs, medicaments and biological substances
CPT/HCPCS: 99211

== ENCOUNTER → 2025-01-19 | Outpatient (CLI) | payer MEDICARE ==
--- NOTE | 2025-01-20 12:26 | MM ---
Reason for Exam: Screening (asymptomatic). Last screening mammogram was performed 12 month(s) ago. Patient History: Menarche at age 11. First Full-Term at age 27. Postmenopausal. Estrogen for 5 years from age 53 until age 58. Patient used Progesterone for 2 years. Hormonal Contraceptives for 10 years from age 18 until age 28. Benign Cyst Aspiration on the right side. Benign Cyst Aspiration on the left side. Benign Excisional Biopsy on the left side. 03/04/2015, Benign Cyst Aspiration on the left side. Maternal aunt had breast cancer, age 65. Risk Values: Linda 5 year model risk: 2.3%. NCI Lifetime model risk: 4.7%. Prior Study Comparison: 11/18/2018 Bilateral Screening Mammogram, [facility]. 11/20/2019 Bilateral Screening Mammogram, [facility]. 11/22/2020 Bilateral Screening Mammogram, [facility]. 03/03/2021 Left Diagnostic Mammogram, [facility]. 09/02/2021 Left Diagnostic Mammogram, [facility]. 01/05/2022 Bilateral Screening Mammogram, [facility]. 01/15/2023 Bilateral MG 3D screening mammo w/cad, [facility]. 01/17/2024 Bilateral MG 3D screening mammo w/cad, [facility]. Tissue Density: The breasts are heterogeneously dense, which may obscure small masses. Findings: Analyzed By CAD. There is no suspicious group of microcalcifications or new suspicious mass in either breast. Overall Assessment: Benign, BI-RAD 2 Management: Screening Mammogram of both breasts in 1 year. . Patient should continue monthly self-breast exams. A clinical breast exam by your physician is recommended on an annual basis. This exam should not preclude additional follow-up of suspicious palpable abnormalities. Note on Linda scores and lifetime risk: 1. A Linda score greater than 3% is considered moderate risk. If this is the case, consider specialist referral to assess eligibility for a risk reducing agent. 2. If overall lifetime risk for the development of breast cancer is 20% or higher, the patient may qualify for future screening with alternating mammogram and breast MRI. [facility], , 01/19/2025 1:11 PM. Electronically signed and approved by: Jermain Mejia M.D. Radiologis
== END | disposition home or self-care (01) ==
LOC: RADMAMWWP 12:37
PROVIDERS: ATTEND Surgery
DX: Z12.31 Encounter for screening mammogram for malignant neoplasm of breast (principal); R92.333 Mammographic heterogeneous density, bilateral breasts; Z78.0 Asymptomatic menopausal state; Z80.3 Family history of malignant neoplasm of breast; Z92.0 Personal history of contraception
CPT/HCPCS: 77063; 77067

== ENCOUNTER → 2025-01-22 | Outpatient (CLI) | payer MEDICARE ==
[2025-01-22 13:25] VITALS: BP 107/81; PULSE 87; RESP 17; TEMP 97.9
--- NOTE | 2025-01-22 13:44 | P.PN ---
Subjective Progress Note Date: 01/22/25 Principal diagnosis: fibrocystic breast disease 01/22/25 Principal diagnosis: fibrocystic breast changes 01-13-22 fibrocystic breast changes Anna is a 71-year-old white female who was presents for breast evaluation. She has a long history of fibrocystic breast disease and has had multiple cyst aspirated in the past. She has had a left breast open biopsy which was benign. And she has had a left breast aspiration by radiology where a clip was left approximately 5 years ago. All of these have been benign. She has however had tenderness in her left breast in the lateral aspect since the aspiration with the clip being left. She has no new lumps masses or nodules in her breasts. She has no nipple discharge or skin changes. She is not complaining of any trauma to her breast. She has no history of any infection of the breast. She had a bilateral screening mammogram and . This revealed an area of question in the left breast in the outer quadrant subareolar position and ultrasound was then performed of this area. The ultrasound confirmed a very small lesion approximately 5 mm at the site believed to the mammographic change. The recommendation as per radiology was for a stereotactic core biopsy. It was felt the lesion was too small to try to do an ultrasound-guided core biopsy. The mammogram and ultrasound were reviewed with multiple radiologist and ultimately the decision was made to do close surveillance. The patient has had a repeat bilateral mammogram performed on 4721. This was read by Dr. Shrestha and reviewed with Dr. Coleman. The findings are benign BIRADS 2 and repeat bilateral mammogram in 1 year is recommended. The patient did have questions last year regarding automated breast ultrasound, these questions were also addressed with radiology who did not feel that it was necessary. 01-18-23 Anna does not feel any new lumps masses or nodules of concern in either breast. She is not complaining of any nipple discharge or skin changes. 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 This is inferior to the breast as well as superior to the breast and extending into bilateral axillas. She follows with dermatology for this. The pain in her breast has not become worse. 01-24-24 Bilateral mammogram 01-17-24 BIRAD 2, personally reviewed She is not complaining of any new lumps masses or nodules of concern in either breast. She continues to have tenderness in the lateral aspect of the left breast since a clip was placed after a biopsy. 01-22-25 bilateral mammogram on 01-19-25 BIRAD 2 personally interpreted She is not complaining of any new lumps masses or nodules of concern in either breast. She continues to have tenderness in the lateral aspect of the left breast since a clip was placed after a biopsy no changes She fell October 29 in [place] in a hotel room shower, she was black and blue left side of her chest and ? bruised ribs and L5S1 to have a procedure next week and then a neurosurgeon Family History: 1. maternal aunt: breast and uterine cancer 2. father: leukemia at 77 Hormonal history Menarche: 11 Pregnancies: 3, 2 children, one miscarriage, age of first live 27, breast- fed: Yes Menopause:46 BCP: 10 years hormones: Premarin cream twice a week Estrogen: 8 years Past Surgical History: 1. benign breast biopsy 2. two cataracts 3. two foot surgeries (bone graft left toe) 4. SCC left leg Past Medical History: 1. Scoliosis/back pain 2. Osteoarthritis 3. granuloma annulare 4. pain left calf and foot numb and pain with ambulation 5. chronic hoarness/desist since COVID/follows with Dr. Smith 6. uterine prolapse 7. chronic bronchiestis Social History: smoke: none alcohol: 2 times/month drugs: none - Constitutional Constitutional: Denies chills, Denies fever - EENT Comment: cataract surgery Eyes: denies blurred vision, denies pain Ears: deny: decreased hearing, tinnitus Ears, nose, mouth and throat: Denies headache, Denies sore throat - Breasts Breasts: bilateral: as per HPI - Cardiovascular Cardiovascular: Reports shortness of breath, Denies chest pain - Respiratory Respiratory: Reports cough, bronchectasis - Gastrointestinal Gastrointestinal: Denies abdominal pain, Denies diarrhea, Denies nausea, Denies vomiting - Genitourinary (Female) Genitourinary: Denies dysuria, Denies hematuria - Menstruation Menstruation: Reports postmenopausal - Musculoskeletal Comment: back pain, osterpenia, osteoarthritis - Integumentary Comment: Granuloma annulare Integumentary: Reports rash, Denies pruritus - Neurological Neurological: Reports numbness, Reports weakness - Psychiatric Psychiatric: Reports anxiety - Endocrine Endocrine: Reports fatigue, Denies weight change - Hematologic/Lymphatic Comment: none - Allergic/Immunologic Comment: none Allergic/Immunologic: Reports as per HPI Objective - Constitutional General appearance: Present: cooperative - EENT Eyes: Present: EOMI ENT: Present: hearing grossly normal - Neck Neck: Present: normal ROM - Respiratory Respiratory: bilateral: CTA - Cardiovascular Rhythm: regular Heart sounds: normal: S1, S2 - Integumentary Integumentary: Present: normal turgor - Musculoskeletal Musculoskeletal: Present: gait normal - Psychiatric Psychiatric: Present: A&O x's 3, appropriate affect, intact judgment & insight - Additional findings Additional findings: Breast Exam: BRA: 38C inspection: bilateral grade 2 ptosis, granuloma annulare under both breast and superior to both breast resolved on methotrexate, now off methotrexate palpation: right breast: multipositional exam fibrocystic changes no discrete dominant masses or nodules of concern Right axilla: No adenopathy of concern Left breast: Well-healed scar from prior lumpectomy/biopsy, multi positional exam fibrocystic changes no dominant masses or nodules of concern Left axilla: No adenopathy of concern Assessment and Plan Assessment: Impression: fibroystic breast changes bilateral mammogram 01-19-25 NIKI 2 Plan: Repeat bilateral mammogram in 1 year, with appointment Patient will follow up sooner any questions or concerns following with neurosurgery regarding back granulare annulare follow with [facility] clinic CC: Dr. Damon
== END ==
LOC: WWCWWP 12:31
PROVIDERS: ATTEND Surgery
DX: Z12.31 Encounter for screening mammogram for malignant neoplasm of breast (principal); N60.19 Diffuse cystic mastopathy of unspecified breast; Z88.5 Allergy status to narcotic agent; Z88.1 Allergy status to other antibiotic agents; Z88.8 Allergy status to other drugs, medicaments and biological substances; Z88.2 Allergy status to sulfonamides